=== PATIENT | female | born 1970 | race Caucasian/White ===

== ENCOUNTER 2022-10-16 20:50 | Emergency (ER) | payer OTHER, SELFPAY ==
--- NOTE | 2022-10-16 20:49 | ECG_ITS ---
APPROVED REPORT Exam: Resting ECG HR:84 bpm ECG Measurements Heart Rate 84 AXES SC 164 P 66 QRSd 93 QRS 30 QT 349 T 44 QTc 390 Conclusion SINUS RHYTHM LOW QRS VOLTAGE IN PRECORDIAL LEADS [QRS DEFLECTION < 1.0 mV IN CHEST LEADS] BORDERLINE ECG UNCONFIRMED REPORT Electronically signed by : Jhonny Anne MD 10/17/2022 21:28:04
[2022-10-16 20:50] VITALS: BP 158/87; PULSE 85; RESP 22; TEMP 36.6; O2SAT 99; BMI 45.1
[2022-10-16 21:01] VITALS: BP 130/79; PULSE 81; RESP 16; O2SAT 99
--- NOTE | 2022-10-16 21:04 | XR_ITS ---
PROCEDURE INFORMATION: Exam: XR Chest Exam date and time: 10/16/2022 9:33 PM Age: 52 years old Clinical indication: Shortness of breath; Sternal or substernal pain; Additional info: Chest pain, SOA TECHNIQUE: Imaging protocol: Radiologic exam of the chest. Views: 2 views. COMPARISON: No relevant prior studies available. FINDINGS: Lungs: Mild atelectasis in the lung bases. No consolidation. Pleural spaces: Unremarkable. No pleural effusion. No pneumothorax. Heart/Mediastinum: Unremarkable. No cardiomegaly. Bones/joints: Unremarkable. IMPRESSION: No acute findings.
--- NOTE | 2022-10-16 21:04 | CT_ITS ---
PROCEDURE INFORMATION: Exam: CTA Chest With Contrast Exam date and time: 10/16/2022 9:51 PM Age: 52 years old Clinical indication: Shortness of breath; Sternal or substernal pain; Additional info: Chest pain, SOA, recent dvt rle TECHNIQUE: Imaging protocol: Computed tomographic angiography of the chest with contrast. 3D rendering (Not supervised by radiologist): MIP and/or 3D reconstructed images were created by the technologist. Radiation optimization: All CT scans at this facility use at least one of these dose optimization techniques: automated exposure control; mA and/or kV adjustment per patient size (includes targeted exams where dose is matched to clinical indication); or iterative reconstruction. Contrast material: ISOVUE; Contrast volume: 70 ml; Contrast route: INTRAVENOUS (IV); Other protocol: This patient has received 0 known CTs and 0 known cardiac nuclear medicine studies in the 12 months prior to the current study. COMPARISON: CR XR CHEST 2V 10/16/2022 9:33 PM FINDINGS: Pulmonary arteries: Normal. No pulmonary emboli. Aorta: Unremarkable. No aortic aneurysm. No aortic dissection. Lungs: Unremarkable. No consolidation. No masses. Pleural spaces: Unremarkable. No pneumothorax. No pleural effusion. Heart: Unremarkable. No cardiomegaly. No pericardial effusion. Lymph nodes: Unremarkable. No enlarged lymph nodes. Bones/joints: Unremarkable. No acute fracture. Soft tissues: Unremarkable. IMPRESSION: No acute findings.
[2022-10-16 21:16] LABS: Basophils # 0.1 K/mm3 (0-0.2); Basophils % 1.5 % (0.1-2.0); Eosinophils # 0.3 K/mm3 (0.0-0.4); Eosinophils % 2.8 % (0.1-12.0); Hematocrit 46.4 % (37.0-47.0); Hemoglobin 14.8 g/dL (12.2-16.2); Lymphocytes # 2.8 K/mm3 (0.7-4.5); Lymphocytes % 29.6 % (10-50); Mean Corpuscular HGB Conc 31.9 g/dL (31.8-35.4); Mean Corpuscular Hemoglobin 27.1 pg (27.0-31.2); Mean Corpuscular Volume 84.8 fl (81-99); Mean Platelet Volume 7.8 fl (7.4-10.4); Monocytes # 0.5 K/mm3 (0.1-1.0); Monocytes % 4.9 % (1.7-9.3); Neutrophils # 5.7 K/mm3 (1.8-7.8); Neutrophils % 61.2 % (37.0-80.0); Platelet Count 273 K/mm3 (142-424); Red Blood Count 5.47 M/mm3 (4.20-5.40); Red Cell Distribution Width 13.7 % (11.5-17.5); White Blood Count 9.4 K/mm3 (4.8-10.8)
[2022-10-16 21:25] LABS: Alanine Aminotransferase 21 U/L (12-78); Albumin Level 4.5 g/dl (3.5-5.0); Alkaline Phosphatase 96 U/L (38-126); Anion Gap 8.2 mEq/L (5-15); Aspartate Amino Transferase 28 U/L (14-36); Bilirubin,Direct 0.2 mg/dl (0.0-0.4); Bilirubin,Indirect 0.1 mg/dL (0.0-0.9); Bilirubin,Total 0.3 mg/dl (0.2-1.3); Bilirubin,Unconjugated 0.1 mg/dL (0.0-1.1); Blood Urea Nitrogen 22 mg/dl (7-17); Calcium 9.2 mg/dl (8.4-10.2); Carbon Dioxide 30 mmol/L (22.0-30.0); Chloride 104 mmol/L (98-107); Creatinine Clearance Estimated 67 mL/min (50-200); Estimated Glomerular Filt Rate 65 ml/min (>60); GFR (African American) 79 ML/MIN (>60); Glucose 99 mg/dl (74-100); Potassium 4.2 mmoL/L (3.5-5.1); Sodium 138 mmol/L (136-145); Total Protein,Serum 7.6 g/dl (6.3-8.2)
[2022-10-16 21:29] LABS: C-Reactive Protein 10.7 mg/L (0-4)
--- NOTE | 2022-10-16 21:29 | HMH.EDCP ---
Discharge Plan Disposition Chief Complaint: Chest Pain Prescriptions Prescriptions: No Action nifedipine 30 mg Tablet Extended Release 24hr 30 mg PO DAILY estradiol 1 mg Tablet 1 mg PO DAILY Rx Instructions: off 1 week; repeat cycle pantoprazole 40 mg Tablet,Delayed Release (Dr/Ec) 40 mg PO DAILY aspirin 81 mg Tablet 81 mg PO DAILY furosemide 20 mg Tablet 20 mg PO DAILY ergocalciferol (vitamin D2) [Vitamin D2] 1,250 mcg (50,000 unit) Capsule 1,250 mcg PO WEEKLY albuterol sulfate 90 mcg/actuation Hfa Aerosol Inhaler 1 inh INHALATION QID PRN (Reason: copd) losartan 100 mg Tablet 100 mg PO DAILY sertraline 50 mg Tablet 50 mg PO DAILY imipramine HCl 25 mg Tablet 25 mg PO HS Clinical Impressions Clinical Impression: Chest pain Instructions Patient Instructions: DI for Chest Pain Discharge ED Provider: Almita (ED),Bladimir Quevedo Chest Pain HPI General Chief Complaint: Chest Pain Stated Complaint: Chest Pain Time Seen by Provider: 10/16/22 21:10 Mode of Arrival: Family Vehicle Source of Information: Patient, Spouse and Medical Record Limitations: No Limitations Description of Symptoms (Recalled from ER Triage Doc. by RN): Pt c/o anterior chest pressure that began today at lunch time. States she has had issues with chest pain for a long time, but today the pressure has not let up. States it began during exertion and has continued t/o the day. She already took ASA 81 mg [employer] but no other medications. She does report a recent DVT in her RLE without any blood thinners. History of Present Illness HPI narrative: over the last few days has had progressive ant chest pain more tonight - had card cath about 2 yrs ago w/o stent - MD complaint: chest pain indicative of cardiac Onset (ago): hour(s) Duration: intermittent Activity at onset: during rest Pain location: left chest Severity: moderate Risk Factors for CAD: Family Hx of CAD Treatments prior to or on arrival for Cardiac Chest Pain: none SHERI Score for Non-Stemi Age of Patient: 50-59 years old Heart Rate: 70-89 bpm Systolic Blood Pressure: 140-159 mmHg Serum Creatinine: 0.80-1.19 mg/dl CHF [place] Class: I-No CHF Other Risk Factors: None Non-Stemi Risk Score: 81 Risk Stratification: 1-108 = Low Risk Related Data Prior Cardiac Testing/Procedures: Cardiac Angiogram On Oral Contraceptives: No Home Medications Medication Instructions Recorded Confirmed albuterol sulfate 90 mcg/actuation 1 inh inhalation QID PRN copd 10/16/22 10/16/22 aerosol inhaler aspirin 81 mg tablet 81 mg PO DAILY heart health 10/16/22 10/16/22 ergocalciferol (vitamin D2) 1,250 1,250 mcg PO WEEKLY Supplement 10/16/22 10/16/22 mcg (50,000 unit) capsule (Vitamin D2) estradiol 1 mg tablet 1 mg PO DAILY Supplement 10/16/22 10/16/22 furosemide 20 mg tablet 20 mg PO DAILY swelling 10/16/22 10/16/22 imipramine HCl 25 mg tablet 25 mg PO HS Depression 10/16/22 10/16/22 losartan 100 mg tablet 100 mg PO DAILY htn 10/16/22 10/16/22 nifedipine 30 mg tablet,extended 30 mg PO DAILY htn 10/16/22 10/16/22 release 24 hr pantoprazole 40 mg tablet,delayed 40 mg PO DAILY GERD 10/16/22 10/16/22 release sertraline 50 mg tablet 50 mg PO DAILY Depression 10/16/22 10/16/22 Allergies Allergy/AdvReac Type Severity Reaction Status Date / Time No Known Allergies Allergy Verified 10/16/22 21:00 [facility] Disclaimer: The information contained in this section may have been updated after the patient was seen, as this information can be updated by other users. Social History Smoking Status: Former smoker alcohol intake: never current occupational status: employed Travel in the last 8 weeks: None ROS Obtained: Yes All systems reviewed & no additional complaints except as documented Physical Exam General General appearance: alert and obese Head Head exam: normocephalic Eye Eye exam: Present PERRL and EOMI ENT EN
[2022-10-16 21:31] VITALS: BP 124/68; PULSE 76; RESP 14; O2SAT 100
[2022-10-16 21:35] LABS: NT Pro Brain Natriuretic Pep. 37.1 pg/mL (0-125)
[2022-10-16 21:40] LABS: Troponin I < 0.01 ng/ml (0.00-0.034)
[2022-10-16 21:43] LABS: Procalcitonin 0.041 ng/mL (0.0-2.0)
--- NOTE | 2022-10-16 21:47 | PC.NURSE ---
pt gone to CT @ this time.
--- NOTE | 2022-10-16 21:48 | PC.NURSE ---
called [facility] to get Medical records @ this times
[2022-10-16 21:51] LABS: Erythrocyte Sedimentation Rate 13 mm/hr (0-30)
[2022-10-16 22:00] VITALS: BP 125/70
[2022-10-16 22:30] VITALS: BP 116/67; PULSE 76; RESP 17; O2SAT 99
[2022-10-16 23:00] VITALS: BP 140/78; PULSE 75; RESP 15; O2SAT 99
[2022-10-17 00:18] VITALS: BP 146/80; PULSE 75; RESP 16; O2SAT 100
[2022-10-17 00:31] VITALS: BP 145/80; PULSE 75; RESP 16; O2SAT 98
[2022-10-17 01:01] VITALS: BP 148/78; PULSE 74; RESP 18; O2SAT 98
[2022-10-17 01:23] LABS: Troponin I < 0.01 ng/ml (0.00-0.034)
[2022-10-17 02:07] VITALS: BP 148/78; PULSE 72; RESP 18; TEMP 36.6; O2SAT 99
== END 2022-10-17 02:12 | disposition home or self-care (01) ==
PROVIDERS: Emergency Provider Emergency Medicine
DX: R07.89 Other chest pain (principal); Z87.891 Personal history of nicotine dependence
CPT/HCPCS: 71046; 71275; 80048; 80076; 83735; 83880; 84145; 84484; 85025; 85651; 86140; 93005; 96360; 99285; Q9967

== ENCOUNTER → 2022-11-13 12:14 | Outpatient (CLI) | payer OTHER, SELFPAY | LOC: RAD 12:15 | PROVIDERS: PCP Nurse Practitioner Family; Visit Provider Physician Assistant | DX: R07.9 Chest pain, unspecified (principal); R94.31 Abnormal electrocardiogram [ECG] [EKG]; Z82.49 Family history of ischemic heart disease and other diseases of the circulatory system | CPT/HCPCS: 78452; 93017; 93306; A9502; J2785 ==

== ENCOUNTER 2022-12-26 14:03 | Emergency (ER) | payer OTHER, SELFPAY ==
[2022-12-26 14:12] VITALS: BP 146/95; PULSE 86; RESP 16; TEMP 36.6; O2SAT 99; BMI 46.5
--- NOTE | 2022-12-26 14:22 | XR_ITS ---
FINAL REPORT CLINICAL HISTORY: fall rightankle pain at work FINDINGS: RIGHT ANKLE 2 views of the right ankle were obtained. There is no acute fracture or dislocation. There are mild degenerative changes. There are calcaneal spurs. There is no soft tissue abnormality. IMPRESSION: No acute bony abnormality. Mild degenerative change. Reviewed, Interpreted and Dictated by Alban Nuno III, MD Transcribed by Evie Mills Authenticated and . [facility]
--- NOTE | 2022-12-26 14:22 | XR_ITS ---
FINAL REPORT CLINICAL HISTORY: fall right lower leg pain at work FINDINGS: RIGHT TIBIA FIBULA 2 views were obtained. There is no acute fracture or dislocation. There are mild degenerative changes of the knee and ankle. There is no soft tissue abnormality. IMPRESSION: No acute bony abnormality. Reviewed, Interpreted and Dictated by Alban Nuno III, MD Transcribed by Evie Mills Authenticated and '[facility]
--- NOTE | 2022-12-26 14:22 | XR_ITS ---
FINAL REPORT CLINICAL HISTORY: fall r knee pain at work FINDINGS: Three views of the right knee reveal no evidence of fracture or dislocation. The bony alignment is normal. There are mild degenerative changes with osteophytes. There is no evidence of joint effusion. No localized soft tissue abnormality is identified. IMPRESSION: No acute abnormality identified. Mild degenerative change. Reviewed, Interpreted and Dictated by Alban Nuno III, MD Transcribed by Evie Mills Authenticated and [facility]
[2022-12-26 14:31] VITALS: BP 163/105; PULSE 93; O2SAT 100
--- NOTE | 2022-12-26 14:58 | HMH.EDGENADL ---
Discharge Plan Disposition Patient Disposition: Home, Self-Care Condition: Fair Chief Complaint: Fall Prescriptions Prescriptions: No Action metoprolol succinate 25 mg tablet extended release 24 hr 25 mg PO QDAY Qty: 90 3RF nifedipine 30 mg Tablet Extended Release 24hr 30 mg PO DAILY estradiol 1 mg Tablet 1 mg PO DAILY Rx Instructions: off 1 week; repeat cycle pantoprazole 40 mg Tablet,Delayed Release (Dr/Ec) 40 mg PO DAILY aspirin 81 mg Tablet 81 mg PO DAILY furosemide 20 mg Tablet 20 mg PO DAILY ergocalciferol (vitamin D2) [Vitamin D2] 1,250 mcg (50,000 unit) Capsule 1,250 mcg PO WEEKLY albuterol sulfate 90 mcg/actuation Hfa Aerosol Inhaler 1 inh INHALATION QID PRN (Reason: copd) losartan 100 mg Tablet 100 mg PO DAILY sertraline 50 mg Tablet 50 mg PO DAILY imipramine HCl 25 mg Tablet 25 mg PO HS Referrals Follow up/Referrals: Dinorah Fisher APRN [Primary Care Provider] - See instructions Activity Restrictions/Add. Instructions Additional Instructions/Restrictions: Follow-up with your family doctor regarding this visit to the emergency department. If you have any other concerning signs or symptoms, return to the ER or your orthopedist for further evaluation. Clinical Impressions Clinical Impression: Acute pain of right knee Discharge ED Provider: Gold Schrader General Adult HPI General Chief complaint: Fall Stated complaint: AO@Work 12/26 1300 RT knee pain Time Seen by Provider: 12/26/22 14:05 Mode of Arrival: Wheelchair Source of Information: Patient Limitations: No Limitations Description of Symptoms (Recalled from ER Triage Doc. by RN): pt comes in via wheelchair for right knee and ankle pain. pt states that she fell today while at work. pt works at [employer]. History of Present Illness HPI narrative: Is a 52-year-old female with history of PAD, fibromyalgia presenting with right knee pain. Patient states that she was diagnosed with a torn meniscus and is supposed to get a total knee replacement. Today she fell on her right knee from standing. Has been able to bear weight, but with significant pain. Currently 10 out of 10 pain, does not radiate, no neurologic deficits. Related Data Home Medications Medication Instructions Recorded Confirmed albuterol sulfate 90 mcg/actuation 1 inh inhalation QID PRN copd 10/16/22 11/15/22 aerosol inhaler aspirin 81 mg tablet 81 mg PO DAILY heart health 10/16/22 11/15/22 ergocalciferol (vitamin D2) 1,250 1,250 mcg PO WEEKLY Supplement 10/16/22 11/15/22 mcg (50,000 unit) capsule (Vitamin D2) estradiol 1 mg tablet 1 mg PO DAILY Supplement 10/16/22 11/15/22 furosemide 20 mg tablet 20 mg PO DAILY swelling 10/16/22 11/15/22 imipramine HCl 25 mg tablet 25 mg PO HS Depression 10/16/22 11/15/22 losartan 100 mg tablet 100 mg PO DAILY htn 10/16/22 11/15/22 nifedipine 30 mg tablet,extended 30 mg PO DAILY htn 10/16/22 11/15/22 release 24 hr pantoprazole 40 mg tablet,delayed 40 mg PO DAILY GERD 10/16/22 11/15/22 release sertraline 50 mg tablet 50 mg PO DAILY Depression 10/16/22 11/15/22 Previous Rx's Medication Instructions Recorded metoprolol succinate 25 mg 25 mg PO QDAY #90 tabs 10/18/22 tablet,extended release 24 hr Allergies Allergy/AdvReac Type Severity Reaction Status Date / Time No Known Allergies Allergy Verified 11/15/22 13:53 [facility] Disclaimer: The information contained in this section may have been updated after the patient was seen, as this information can be updated by other users. Medical History Abnormal electrocardiogram [ECG] [EKG] Dyspnea Edema of both lower extremities Family history of ischemic heart disease before age 50 Father [place] 50 Mother -CABG Brother -CABG Social History Smoking Status: Never
[2022-12-26 15:00] VITALS: BP 156/108
--- NOTE | 2022-12-26 15:18 | PC.NURSE ---
pt up to restroom
[2022-12-26 15:30] VITALS: BP 131/82; PULSE 78; RESP 20; O2SAT 100
[2022-12-26 15:49] VITALS: BP 131/82; PULSE 80; RESP 18; TEMP 36.7; O2SAT 99
== END 2022-12-26 15:50 | disposition home or self-care (01) ==
PROVIDERS: Emergency Provider Emergency Medicine; PCP Nurse Practitioner Family
DX: M25.561 Pain in right knee (principal); M25.571 Pain in right ankle and joints of right foot; W19.XXXA Unspecified fall, initial encounter; Y99.0 Civilian activity done for income or pay
CPT/HCPCS: 73562; 73590; 73600; 96372; 99284

== ENCOUNTER 2023-10-14 10:36 | Outpatient (CLI) | payer OTHER, SELFPAY ==
--- NOTE | 2023-10-14 11:00 | CT_ITS ---
FINAL REPORT TECHNIQUE: Postcontrast axial images of the chest were performed in a CTA protocol. This study was performed with techniques to keep radiation doses as low as reasonably achievable, (ALARA). Individualized dose reduction technique using automated exposure control or adjustment of mA and/or kV according to the patient's size were employed. CLINICAL HISTORY: DYSPNEA ON EXERTION,R/O DVT COMPARISON: 10/17/2022 FINDINGS: The heart is normal in size. No adenopathy is identified. No pleural or pericardial effusion is identified. The thoracic aorta is normal in caliber with no focal aneurysm or dissection identified. There is no filling defect to suggest pulmonary embolism. No lung infiltrate or mass is identified. There is mild bibasilar atelectasis. The images of the upper abdomen demonstrate postoperative changes of cholecystectomy. IMPRESSION: No evidence for PE on this exam. Reviewed, Interpreted and Dictated by Alban Nuno III, MD Transcribed by Aria Fontaine Authenticated and [facility]
[2023-10-14] MEDS: IOPAMIDOL-370 (76%);100ML BOTTLE 70 ML IV (12:10)
[2023-10-14] MEDS: 0.9 % SODIUM CHLORIDE 50 ML VIAL 40 ML IV (12:10)
[2023-10-14] MEDS: SODIUM CHLORIDE 0.9% 10ML SYR (RAD ONLY) 10 ML IV (12:11)
== END 2023-10-14 23:59 ==
LOC: RAD 10:37
PROVIDERS: PCP Nurse Practitioner Family; Visit Provider Internal Medicine Cardiovascular Disease
DX: R06.09 Other forms of dyspnea (principal); R07.89 Other chest pain
CPT/HCPCS: 71275; Q9967

== ENCOUNTER 2023-11-13 14:47 | Emergency (ER) | payer OTHER, SELFPAY ==
[2023-11-13] VITALS (8 sets, daily range): BP systolic 123–151; BP diastolic 72–94; PULSE 77–88; RESP 16; TEMP 36.4; O2SAT 98–100; BMI 35.8
--- NOTE | 2023-11-13 14:47 | ECG_ITS ---
APPROVED REPORT Exam: Resting ECG HR:80 bpm ECG Measurements Heart Rate 80 AXES IL 171 P 74 QRSd 98 QRS 57 QT 371 T 61 QTc 407 Conclusion SINUS RHYTHM NORMAL ECG Electronically signed by : RAIMUNDO LEIVA, 11/14/2023 00:12:44
--- NOTE | 2023-11-13 15:03 | [facility].EDCP ---
Discharge Plan Disposition Patient Disposition: Home, Self-Care Condition: Good Prescriptions Prescriptions: No Action metoprolol succinate 25 mg tablet extended release 24 hr 25 mg PO QDAY Qty: 90 3RF nifedipine 30 mg Tablet Extended Release 24hr 30 mg PO DAILY estradiol 1 mg Tablet 1 mg PO DAILY Rx Instructions: off 1 week; repeat cycle pantoprazole 40 mg Tablet,Delayed Release (Dr/Ec) 40 mg PO DAILY aspirin 81 mg Tablet 81 mg PO DAILY furosemide 20 mg Tablet 20 mg PO DAILY ergocalciferol (vitamin D2) [Vitamin D2] 1,250 mcg (50,000 unit) Capsule 1,250 mcg PO WEEKLY albuterol sulfate 90 mcg/actuation Hfa Aerosol Inhaler 1 inh INHALATION QID PRN (Reason: copd) losartan 100 mg Tablet 100 mg PO DAILY sertraline 50 mg Tablet 50 mg PO DAILY imipramine HCl 25 mg Tablet 25 mg PO HS Referrals Follow up/Referrals: Provider,Referral, [Primary Care Provider] - See instructions Activity Restrictions/Add. Instructions Additional Instructions/Restrictions: Up with your PCP and mold filler as soon as possible and keep your scheduled echocardiogram appointment on Saturday. Return to the ER for any worsening or change in your symptoms as needed. Clinical Impressions Clinical Impression: Chest pain Qualifiers: Chest pain type: other chest pain Qualified Code(s): R07.89 - Other chest pain Discharge ED Provider: Britta Meneses HPI <YASMINE Engle - Last Filed: 11/13/23 21:32> General Chief Complaint: Chest Pain Stated Complaint: CP Time Seen by Provider: 11/13/23 14:52 History of Present Illness HPI narrative: Patient presents with a 2-day history of intermittent bilateral chest pain . Patient states the pain is throughout both sides of her chest and does not radiate anywhere else. Patient states it is worse with exertion and normally gets better with rest. Patient has had 2 previous coronary caths but has not had any interventions in her heart but has had in her left lower extremity. Patient has never had an echocardiogram but has been following with a mold filler in [place] and reportedly has 1 scheduled for the following Saturday. Patient has nitroglycerin at home and she took that today without any relief. Related Data Home Medications Medication Instructions Recorded Confirmed albuterol sulfate 90 mcg/actuation 1 inh inhalation QID PRN copd 10/16/22 11/15/22 aerosol inhaler aspirin 81 mg tablet 81 mg PO DAILY heart health 10/16/22 11/15/22 ergocalciferol (vitamin D2) 1,250 1,250 mcg PO WEEKLY Supplement 10/16/22 11/15/22 mcg (50,000 unit) capsule (Vitamin D2) estradiol 1 mg tablet 1 mg PO DAILY Supplement 10/16/22 11/15/22 furosemide 20 mg tablet 20 mg PO DAILY swelling 10/16/22 11/15/22 imipramine HCl 25 mg tablet 25 mg PO HS Depression 10/16/22 11/15/22 losartan 100 mg tablet 100 mg PO DAILY htn 10/16/22 11/15/22 nifedipine 30 mg tablet,extended 30 mg PO DAILY htn 10/16/22 11/15/22 release 24 hr pantoprazole 40 mg tablet,delayed 40 mg PO DAILY GERD 10/16/22 11/15/22 release sertraline 50 mg tablet 50 mg PO DAILY Depression 10/16/22 11/15/22 Previous Rx's Medication Instructions Recorded metoprolol succinate 25 mg 25 mg PO QDAY #90 tabs 10/18/22 tablet,extended release 24 hr Allergies Allergy/AdvReac Type Severity Reaction Status Date / Time No Known Allergies Allergy Verified 11/15/22 13:53 [facility] <YASMINE Engle - Last Filed: 11/13/23 21:32> [facility] Disclaimer: The information contained in this section may have been updated after the patient was seen, as this information can be updated by other users. Medical History Abnormal electrocardiogram [ECG] [EKG] Dyspnea Edema of both lower extremities Family history of ischemic heart disease before age 50 Father HI 50 Mother -CABG Brother -CABG Social History Smoking Status: Never smoker alcohol intake: never current occupational status: employed Travel in the last 8 weeks: None <YASMINE Engle - Last Filed: 11/13/23 21:32> ROS Obtained: Yes Systems reviewed as appropriate & no additional complaints except as documented Physical Exam <YASMINE Engle - Last Filed: 11/13/23 21:32> General General appearance: alert and in no apparent distress Head Head exam: atraumatic and normal inspection Eye Eye exam: Present normal appearance, PERRL and EOMI ENT ENT exam: Present normal exam, normal oropharynx and mucous membranes moist Neck Neck exam: Present normal inspection and full ROM; Absent lymphadenopathy Chest Chest inspection: Present normal inspection and symmetric chest wall rise Respiratory Respiratory exam: Present normal lung sounds bilaterally; Absent accessory muscle use Cardiovascular Cardiovascular exam: Present regular rate, normal rhythm, normal heart sounds, +S1 and +S2 Abdominal Exam Abdominal exam: Present soft (Obese) and normal bowel sounds; Absent tenderness, guarding or rebound Extremities Exam Extremities exam: Present normal inspection and full ROM Back Exam Back exam: Present normal inspection and full ROM Neurological Exam Neurological exam: Present alert, oriented X3 and CN II-XII intact Psychiatric Psychiatric exam: Present normal affect and normal mood Skin Skin exam: Present warm, dry and normal color Lymphatic Lymphatic Findings: no adenopathy HEART Score <YASMINE Engle - Last Filed: 11/13/23 21:32> HEART Score HEART Score assessment performed?: Yes History (anamnesis): Slightly suspicious ECG: Normal Age: 45-65 years Risk factors: Atherosclerosis history Troponin: </= normal limit HEART Score: 3 <Britta Meneses DO - Last Filed: 11/13/23 23:47> HEART Score HEART Score: 3 Critical Care <YASMINE Engle - Last Filed: 11/13/23 21:32> Critical Care Time Critical Care Time: No Medical Decision Making <YASMINE Engle - Last Filed: 11/13/23 21:32> Medical Records Medical records reviewed: Yes I reviewed the patient's medical records. Jeremias Inquiry Pt receiving controlled substance: No Vital Signs Vital Signs: 11/13/23 14:52 11/13/23 15:00 11/13/23 15:23 Temperature 97.5 F L Temperature Source Oral Pulse Rate 88 77 Pulse Rate [Left] 87 Respiratory Rate 16 Blood Pressure 145/94 H 131/91 H Blood Pressure [Right Arm] 151/94 H Blood Pressure Mean [Right Arm] 113 02 Sat by Pulse Oximetry 99 99 100 Oxygen Delivery Method Room Air 11/13/23 15:30 11/13/23 16:00 11/13/23 16:30 Temperature Temperature Source Pulse Rate 84 79 82 Pulse Rate [Left] Respiratory Rate Blood Pressure 123/72 127/85 129/88 Blood Pressure [Right Arm] Blood Pressure Mean [Right Arm] 02 Sat by Pulse Oximetry 100 98 100 Oxygen Delivery Method Room Air Room Air Room Air 11/13/23 16:59 11/13/23 19:11 Temperature 97.5 F L Temperature Source Oral Pulse Rate 85 81 Pulse Rate [Left] Respiratory Rate 16 Blood Pressure 130/82 130/82 Blood Pressure [Right Arm] Blood Pressure Mean [Right Arm] 02 Sat by Pulse Oximetry 99 Oxygen Delivery Method Room Air Lab Data Lab results reviewed: Yes I reviewed the patient's lab results. Labs: Lab Results 11/13/23 14:50: WBC 7.9, RBC 5.16, Hgb 14.1, Hct 45.1, MCV 87.3, MCH 27.2, MCHC 31.2 L, RDW 14.5, Plt Count 273, MPV 7.8, Neut % (Auto) 61.8, Lymph % (Auto) 31.2, [place] % (Auto) 4.5, Eos % (Auto) 1.7, Baso % (Auto) 0.8, Neut # (Auto) 4.9, Lymph # (Auto) 2.5, [place] # (Auto) 0.4, Eos # (Auto) 0.1, Baso # (Auto) 0.1, PT 10.2, INR 0.94, D-Dimer 0.37, Sodium 138, Potassium 3.6, Chloride 103, Carbon Dioxide 29, Anion Gap 9.6, BUN 15, Creatinine 0.70, Estimated Creat Clear 202, Estimated GFR 87, Est GFR ( Amer) 105, Glucose 119 H, Calcium 9.1, Magnesium 2.0, Total Bilirubin 0.2, AST 29, ALT 25, Alkaline Phosphatase 108, Troponin I < 0.01, NT-Pro-B Natriuret Pep < 20.0, Total Protein 7.3, Albumin 4.2, Globulin 3.1, Albumin/Globulin Ratio 1.4 11/13/23 15:10: SARS-CoV-2 (PCR) Not detected, Influenza A Untype (PCR) Not detected, Influenza Type B (PCR) Not detected 11/13/23 15:18: Lactate 2.4 H 11/13/23 17:30: Troponin I < 0.01 11/13/23 14:50 11/13/23 14:50 Response Orders (Tests/Meds): ED MEDICATIONS Discontinued Medications Generic Name Dose Route Start Last Admin Trade Name Nas PRN Reason Stop Dose Admin Acetaminophen 1,000 mg 11/13/23 15:05 11/13/23 15:19 Acetaminophen 1,000mg/100ml Vial IV 11/13/23 15:06 1,000 mg ONCE ONE Administration Ketorolac Tromethamine 15 mg 11/13/23 15:05 11/13/23 15:19 Ketorolac 30mg/Ml Vial IV 11/13/23 15:06 15 mg ONCE ONE Administration ORDERS Category Date Time Status Chest XR -- portable [XR chest portable] Stat Exams 11/13/23 15:05 Completed BNP [Brain Natriuretic Peptide] Stat Lab 11/13/23 14:50 Completed CBC w/Auto Diff [Complete Blood Count Auto Diff] Stat Lab 11/13/23 14:50 Completed CMP [Comprehensive Metabolic Panel] Stat Lab 11/13/23 14:50 Completed D-Dimer Stat Lab 11/13/23 14:50 Completed INR [Prothrombin Time INR] Stat Lab 11/13/23 14:50 Completed Lactic Acid Stat Lab 11/13/23 15:18 Completed Magnesium Stat Lab 11/13/23 14:50 Completed Rapid PCR Covid and Flu A/B Stat Lab 11/13/23 15:10 Completed Trop I [Troponin I] Stat Lab 11/13/23 14:50 Completed Troponin I Q3H Lab 11/13/23 17:30 Completed MDM Narrative Medical Decision Narrative: In summary patient is a in summary patient is a 53-year-old female who presents to the emergency department for evaluation of chest pain . Patient is hemodynamically stable upon arrival, and afebrile. Physical exam is remarkable for a morbidly obese (BMI 35.8) well-nourished well-developed 53-year-old female who presents for bilateral upper chest pain. Patient has had similar symptoms off and on over a year however the last documentation I am able to review was from a cardiology visit done in October 2022.. Exam is remarkable for nonreproducible chest pain but clear breath sounds normal heart sounds 3+ pitting edema in the bilateral lower extremities no palpable cords erythema or induration. Differential diagnosis includes respiratory tract infection versus ACS versus PE versus COPD versus CHF versus possible GI cause. Initial workup will be conducted with hematologic labs twelve-lead EKG plain film chest x-ray. Initial interventions include Toradol acetaminophen. Initial workup reviewed by me shows nonactionable hematologic labs including 2 negative troponins and a twelve-lead EKG shows normal sinus rhythm without evidence of ACS.. Upon repeat evaluation had complete resolution of her symptoms prior to discharge. Patient was able to ambulate without return.. Given this patient is appropriate for discharge at this time with close follow-up with her cardiology and PCP as scheduled. Patient has an echo scheduled for Saturday. Patient may need further evaluation with pulmonology and GI. Patient verbalized understanding and agreement. <Britta Meneses, DO - Last Filed: 11/13/23 23:47> Vital Signs Vital Signs: 11/13/23 14:52 11/13/23 15:00 11/13/23 15:23 Temperature 97.5 F L Temperature Source Oral Pulse Rate 88 77 Pulse Rate [Left] 87 Respiratory Rate 16 Blood Pressure 145/94 H 131/91 H Blood Pressure [Right Arm] 151/94 H Blood Pressure Mean [Right Arm] 113 02 Sat by Pulse Oximetry 99 99 100 Oxygen Delivery Method Room Air 11/13/23 15:30 11/13/23 16:00 11/13/23 16:30 Temperature Temperature Source Pulse Rate 84 79 82 Pulse Rate [Left] Respiratory Rate Blood Pressure 123/72 127/85 129/88 Blood Pressure [Right Arm] Blood Pressure Mean [Right Arm] 02 Sat by Pulse Oximetry 100 98 100 Oxygen Delivery Method Room Air Room Air Room Air 11/13/23 16:59 11/13/23 19:11 Temperature 97.5 F L Temperature Source Oral Pulse Rate 85 81 Pulse Rate [Left] Respiratory Rate 16 Blood Pressure 130/82 130/82 Blood Pressure [Right Arm] Blood Pressure Mean [Right Arm] 02 Sat by Pulse Oximetry 99 Oxygen Delivery Method Room Air Lab Data Labs: Lab Results 11/13/23 14:50: WBC 7.9, RBC 5.16, Hgb 14.1, Hct 45.1, MCV 87.3, MCH 27.2, MCHC 31.2 L, RDW 14.5, Plt Count 273, MPV 7.8, Neut % (Auto) 61.8, Lymph % (Auto) 31.2, [place] % (Auto) 4.5, Eos % (Auto) 1.7, Baso % (Auto) 0.8, Neut # (Auto) 4.9, Lymph # (Auto) 2.5, [place] # (Auto) 0.4, Eos # (Auto) 0.1, Baso # (Auto) 0.1, PT 10.2, INR 0.94, D-Dimer 0.37, Sodium 138, Potassium 3.6, Chloride 103, Carbon Dioxide 29, Anion Gap 9.6, BUN 15, Creatinine 0.70, Estimated Creat Clear 202, Estimated GFR 87, Est GFR ( Amer) 105, Glucose 119 H, Calcium 9.1, Magnesium 2.0, Total Bilirubin 0.2, AST 29, ALT 25, Alkaline Phosphatase 108, Troponin I < 0.01, NT-Pro-B Natriuret Pep < 20.0, Total Protein 7.3, Albumin 4.2, Globulin 3.1, Albumin/Globulin Ratio 1.4 11/13/23 15:10: SARS-CoV-2 (PCR) Not detected, Influenza A Untype (PCR) Not detected, Influenza Type B (PCR) Not detected 11/13/23 15:18: Lactate 2.4 H 11/13/23 17:30: Troponin I < 0.01 Response Orders (Tests/Meds): ED MEDICATIONS Discontinued Medications Generic Name Dose Route Start Last Admin Trade Name Nsa PRN Reason Stop Dose Admin Acetaminophen 1,000 mg 11/13/23 15:05 11/13/23 15:19 Acetaminophen 1,000mg/100ml Vial IV 11/13/23 15:06 1,000 mg ONCE ONE Administration Ketorolac Tromethamine 15 mg 11/13/23 15:05 11/13/23 15:19 Ketorolac 30mg/Ml Vial IV 11/13/23 15:06 15 mg ONCE ONE Administration ORDERS Category Date Time Status Chest XR -- portable [XR chest portable] Stat Exams 11/13/23 15:05 Completed BNP [Brain Natriuretic Peptide] Stat Lab 11/13/23 14:50 Completed CBC w/Auto Diff [Complete Blood Count Auto Diff] Stat Lab 11/13/23 14:50 Completed CMP [Comprehensive Metabolic Panel] Stat Lab 11/13/23 14:50 Completed D-Dimer Stat Lab 11/13/23 14:50 Completed INR [Prothrombin Time INR] Stat Lab 11/13/23 14:50 Completed Lactic Acid Stat Lab 11/13/23 15:18 Completed Magnesium Stat Lab 11/13/23 14:50 Completed Rapid PCR Covid and Flu A/B Stat Lab 11/13/23 15:10 Completed Trop I [Troponin I] Stat Lab 11/13/23 14:50 Completed Troponin I Q3H Lab 11/13/23 17:30 Completed ECG Data Tracing #1: Attestation: I reviewed this ECG and interpreted as documented below: ECG Narrative: Normal sinus rhythm with a ventricular rate of [address] elevations concerning for ischemia. Normal axis and intervals. ECG initial impression date: 11/13/23 ECG initial impression time: 14:53 MDM Narrative Medical Decision Narrative: In summary patient is a in summary patient is a 53-year-old female who presents to the emergency department for evaluation of chest pain . Patient is hemodynamically stable upon arrival, and afebrile. Physical exam is remarkable for a morbidly obese (BMI 35.8) well-nourished well-developed 53-year-old female who presents for bilateral upper chest pain. Patient has had similar symptoms off and on over a year however the last documentation I am able to review was from a cardiology visit done in October 2022.. Exam is remarkable for nonreproducible chest pain but clear breath sounds normal heart sounds 3+ pitting edema in the bilateral lower extremities no palpable cords erythema or induration. Differential diagnosis includes respiratory tract infection versus ACS versus PE versus COPD versus CHF versus possible GI cause. Initial workup will be conducted with hematologic labs twelve-lead EKG plain film chest x-ray. Initial interventions include Toradol acetaminophen. Initial workup reviewed by me shows nonactionable hematologic labs including 2 negative troponins and a twelve-lead EKG shows normal sinus rhythm without evidence of ACS.. Upon repeat evaluation had complete resolution of her symptoms prior to discharge. Patient was able to ambulate without return.. Given this patient is appropriate for discharge at this time with close follow-up with her cardiology and PCP as scheduled. Patient has an echo scheduled for Saturday. Patient may need further evaluation with pulmonology and GI. Patient verbalized understanding and agreement. I was consulted by the JANICE, and we discussed the complexity of the problems being addressed. I approved the treatment and management plan for this patient's care in the emergency department, thus performing a substantive portion of the medical decision making. Britta Meneses DO
--- NOTE | 2023-11-13 15:05 | XR_ITS ---
FINAL REPORT CLINICAL HISTORY: Chest pain COMPARISON: 08/15/2023 FINDINGS: A single portable view of the chest was obtained. Low lung volumes are present. Bibasilar atelectasis is noted. The heart size and pulmonary vascularity are within normal limits. The mediastinum is within normal limits. The bony thorax is intact. IMPRESSION: Low lung volumes and bibasilar atelectasis. Reviewed, Interpreted and Dictated by Alban Nuno III, MD Transcribed by Orin Bunch Authenticated and [facility]
[2023-11-13 15:14] LABS: Coronavirus 19, PCR Not Detected (NotDetected); Influenza A, PCR Not Detected (NotDetected); Influenza B, PCR Not Detected (NotDetected)
[2023-11-13] MEDS: KETOROLAC 30MG/ML VIAL 15 MG IV (15:19)
[2023-11-13] MEDS: ACETAMINOPHEN 1,000MG/100ML VIAL 1000 MG IV (15:19)
[2023-11-13 15:22] LABS: INR 0.94 (0.9-1.1); Prothrombin Time 10.2 seconds (10.1-12.5)
[2023-11-13 15:23] LABS: Alanine Aminotransferase 25 U/L (12-78); Albumin Level 4.2 g/dl (3.5-5.0); Albumin/Globulin Ratio 1.4 (1.1-1.8); Alkaline Phosphatase 108 U/L (38-126); Anion Gap 9.6 mEq/L (5-15); Aspartate Amino Transferase 29 U/L (14-36); Bilirubin,Total 0.2 mg/dl (0.2-1.3); Blood Urea Nitrogen 15 mg/dl (7-17); Calcium 9.1 mg/dl (8.4-10.2); Carbon Dioxide 29 mmol/L (22.0-30.0); Chloride 103 mmol/L (98-107); Creatinine Clearance Estimated 202 mL/min (50-200); Estimated Glomerular Filt Rate 87 ml/min (>60); GFR (African American) 105 ML/MIN (>60); Globulin 3.1 g/dL (1.3-3.2); Glucose 119 mg/dl (74-100); Potassium 3.6 mmoL/L (3.5-5.1); Sodium 138 mmol/L (136-145); Total Protein,Serum 7.3 g/dl (6.3-8.2)
[2023-11-13 15:34] LABS: Basophils # 0.1 K/mm3 (0-0.2); Basophils % 0.8 % (0.1-2.0); Eosinophils # 0.1 K/mm3 (0.0-0.4); Eosinophils % 1.7 % (0.1-12.0); Hematocrit 45.1 % (37.0-47.0); Hemoglobin 14.1 g/dL (12.2-16.2); Lymphocytes # 2.5 K/mm3 (0.7-4.5); Lymphocytes % 31.2 % (10-50); Mean Corpuscular HGB Conc 31.2 g/dL (31.8-35.4); Mean Corpuscular Hemoglobin 27.2 pg (27.0-31.2); Mean Corpuscular Volume 87.3 fl (81-99); Mean Platelet Volume 7.8 fl (7.4-10.4); Monocytes # 0.4 K/mm3 (0.1-1.0); Monocytes % 4.5 % (1.7-9.3); Neutrophils # 4.9 K/mm3 (1.8-7.8); Neutrophils % 61.8 % (37.0-80.0); Platelet Count 273 K/mm3 (142-424); Red Blood Count 5.16 M/mm3 (4.20-5.40); Red Cell Distribution Width 14.5 % (11.5-17.5); White Blood Count 7.9 K/mm3 (4.8-10.8)
[2023-11-13 15:35] LABS: NT Pro Brain Natriuretic Pep. < 20.0 pg/mL (0-125)
[2023-11-13 15:37] LABS: Troponin I < 0.01 ng/ml (0.00-0.034)
[2023-11-13 15:37] LABS: Lactic Acid 2.4 mmol/L (0.7-2.1)
[2023-11-13 15:42] LABS: D-Dimer 0.37 ug/mL (0.0-0.5)
[2023-11-13 18:10] LABS: Troponin I < 0.01 ng/ml (0.00-0.034)
[2023-11-13 19:19] LABS: Reflex Lactic Add Lactic Reflex
== END 2023-11-13 19:13 | disposition home or self-care (01) ==
PROVIDERS: Physician Assistant; Emergency Provider Emergency Medicine
DX: R07.89 Other chest pain (principal); E66.9 Obesity, unspecified; Z68.35 Body mass index [BMI] 35.0-35.9, adult
CPT/HCPCS: 71045; 80053; 83605; 83735; 83880; 84484; 85025; 85378; 85610; 87636; 93005; 96374; 96375; 99285; J0131

== ENCOUNTER 2024-03-25 13:47 | Day surgery (SDC) | payer OTHER, SELFPAY ==
[2024-03-25] VITALS (11 sets, daily range): BP systolic 96–157; BP diastolic 65–85; PULSE 66–77; RESP 15–17; TEMP 36.6; O2SAT 96–100; BMI 52.1
--- NOTE | 2024-03-25 | IR_ITS ---
APPROVED REPORT Patient Location: Outpatient [facility] Operator: NICHOLE Cuevas RT (R) PROCEDURES 1. Left heart catheterization 2. Selective coronary arteriography 3. Left ventriculography 4. Right heart catheterization INDICATION 1. Angina pectoris, 2. Abnormal EKG, 3. Congestive heart failure SCAI INDICATION Patient 53-year-old white female who presented to cardiology clinic with increasing pressure and tightness in the chest and increasing shortness of breath. Symptoms of progressive angina as well as congestive heart failure. Increasing edema. Secondary to this referred for left and right heart catheterization Informed consent was obtained prior to the procedure. COMPLICATIONS None Estimated Blood Loss: Less than 10 mls TECHNIQUE One percent lidocaine was used to anesthetize the right groin. The right femoral artery was accessed via the Seldinger technique. A 4-Iraqi and 7 pakistani sheath was placed in the right femoral artery and vein respectfully. A 7 Iraqi sheath was introduced and a [place]-Miracle catheter was floated using hemodynamic waveforms in the pulmonary artery, right ventricle , and right atrium. Saturations were obtained in the pulmonary artery and the right atrium. The JR-4 and JL-4 catheter was also used to perform left heart catheterization, left ventriculography and selective coronary angiogram. At the end of the procedure the patient was transferred to the post-op holding area in stable condition for arterial sheath removal. ANGIOGRAPHIC RESULTS The left main artery Angiographically normal The left anterior descending artery Angiographically normal The circumflex artery Moderate in size and angiographically normal The right coronary artery Large and dominant and angiographically normal The HALL ventriculogram reveals Ejection fraction 60 to 65% with no wall motion abnormalities and no noted mitral insufficiency The left ventricular end-diastolic pressure 14 Patient's right atrial pressure was 12 with a right ventricular pressure of 43/12 and a pulmonary artery pressure of 43/25. Pulmonary capillary wedge pressure 15. Right atrial saturation 66% with a pulmonary artery saturation is 66% IMPRESSION 1. Normal coronary arteries 2. Normal left ventricular systolic function 3. Mild elevation in left ventricular end-diastolic pressure and pulmonary capillary wedge pressure 4. Mild pulmonary hypertension 5. Normal pulmonary artery saturation 6. Successful placement of an Angio-Seal device in the right common femoral artery 7. Successful placement of a Mynx device in the right common femoral vein PLAN 1. Patient will continue with medical therapy. There was significant respiratory variation in the pressures in the heart. This is likely secondary to underlying sleep apnea. Pulmonary hypertension is mild. Likely a combination of diastolic dysfunction and obstructive sleep apnea. Coronaries are normal as is the left ventricular systolic function and pulmonary artery saturation. Follow-up in cardiology clinic in 1 to 2 weeks for further evaluation and treatment Electronically signed by : Shahriar Zambrano MD 03/25/2024 14:52:32
[2024-03-25] MEDS: LIDOCAINE 1% 10ML MDV 20 ML IJ (14:18)
[2024-03-25 14:20] LABS: Chloride 106 mmol/L (98-107); Potassium 4.3 mmoL/L (3.5-5.1); Sodium 138 mmol/L (136-145)
[2024-03-25 14:23] LABS: Anion Gap 8.3 mEq/L (5-15); Blood Urea Nitrogen 18 mg/dl (7-17); Carbon Dioxide 28 mmol/L (22.0-30.0); Creatinine Clearance Estimated 74 mL/min (50-200); Estimated Glomerular Filt Rate 74 ml/min (>60); GFR (African American) 90 ML/MIN (>60); Glucose 94 mg/dl (74-100)
[2024-03-25 14:33] LABS: Basophils # 0.1 K/mm3 (0-0.2); Basophils % 0.9 % (0.1-2.0); Eosinophils # 0.2 K/mm3 (0.0-0.4); Eosinophils % 2.5 % (0.1-12.0); Hematocrit 36.6 % (37.0-47.0); Hemoglobin 11.9 g/dL (12.2-16.2); Lymphocytes # 2.2 K/mm3 (0.7-4.5); Lymphocytes % 27.1 % (10-50); Mean Corpuscular HGB Conc 32.7 g/dL (31.8-35.4); Mean Corpuscular Hemoglobin 27.2 pg (27.0-31.2); Mean Corpuscular Volume 83.2 fl (81-99); Mean Platelet Volume 7.7 fl (7.4-10.4); Monocytes # 0.4 K/mm3 (0.1-1.0); Monocytes % 4.4 % (1.7-9.3); Neutrophils # 5.4 K/mm3 (1.8-7.8); Neutrophils % 65.1 % (37.0-80.0); Platelet Count 331 K/mm3 (142-424); Red Cell Distribution Width 14.9 % (11.5-17.5); White Blood Count 8.3 K/mm3 (4.8-10.8)
[2024-03-25] MEDS: MIDAZOLAM HCL 1MG/1ML 5ML VIAL 1 MG IV (14:48)
[2024-03-25] MEDS: FENTANYL 100MCG/2ML VIAL 50 MCG IV (14:48)
[2024-03-25] MEDS: HEPARIN 1,000 UNITS/500ML NS (CATH LAB) 3000 UNIT IV (14:49)
[2024-03-25] MEDS: IOPAMIDOL-370 (76%);100ML BOTTLE 40 ML IV (15:02)
[2024-03-25 15:04] LABS: CATHL Venous O2 SAT 68.6 % (75-80)
== END 2024-03-25 17:21 | disposition home or self-care (01) ==
PROVIDERS: PCP Family Medicine; Visit Provider Internal Medicine Cardiovascular Disease
DX: I20.89 Other forms of angina pectoris (principal); I11.0 Hypertensive heart disease with heart failure; I50.9 Heart failure, unspecified; R06.02 Shortness of breath; Z87.891 Personal history of nicotine dependence
CPT/HCPCS: 80048; 82810; 85025; 93453; 99152; C1725; C1760; C1769; C1894; J1644; J2250; J3010; Q9967

== ENCOUNTER 2024-12-10 12:05 | Emergency (ER) | payer OTHER, SELFPAY ==
--- NOTE | 2024-12-10 12:09 | ECG_ITS ---
APPROVED REPORT Exam: Resting ECG HR:67 bpm ECG Measurements Heart Rate 67 AXES HI 173 P 59 QRSd 95 QRS 43 QT 377 T 34 QTc 393 Conclusion Sinus rhythm Electronically signed by : KAILYN ERIC, 12/10/2024 13:48:49
--- NOTE | 2024-12-10 12:19 | XR_ITS ---
FINAL REPORT CLINICAL HISTORY: Nonspecific chest pain COMPARISON: 11/13/2023 FINDINGS: No acute pulmonary opacity is present. There is no evidence of effusion or pneumothorax. Mediastinum is unremarkable. Heart size is normal. IMPRESSION: No acute abnormality. Reviewed, Interpreted and Dictated by Reena Hernandez MD Transcribed by Heather Kat Authenticated and [facility]
--- NOTE | 2024-12-10 12:20 | [facility].EDCP ---
Discharge Plan Disposition Patient Disposition: Home, Self-Care Prescriptions Prescriptions: No Action metoprolol succinate 25 mg tablet extended release 24 hr 25 mg PO QDAY Qty: 90 3RF nifedipine 30 mg Tablet Extended Release 24hr 30 mg PO DAILY estradiol 1 mg Tablet 1 mg PO DAILY Rx Instructions: off 1 week; repeat cycle pantoprazole 40 mg Tablet,Delayed Release (Dr/Ec) 40 mg PO DAILY aspirin 81 mg Tablet 81 mg PO DAILY ergocalciferol (vitamin D2) [Vitamin D2] 1,250 mcg (50,000 unit) Capsule 1,250 mcg PO WEEKLY albuterol sulfate 90 mcg/actuation Hfa Aerosol Inhaler 1 inh INHALATION QID PRN (Reason: copd) sertraline 50 mg Tablet 50 mg PO DAILY oxybutynin chloride 10 mg tablet extended release 24hr 10 mg PO DAILY Patient Comments: TAKE ONE (1) TABLET BY MOUTH EVERY DAY isosorbide mononitrate 30 mg tablet extended release 24 hr 30 mg PO DAILY Patient Comments: TAKE ONE (1) TABLET BY MOUTH EVERY DAY clopidogrel 75 mg tablet 75 mg PO DAILY Patient Comments: TAKE ONE (1) TABLET BY MOUTH EVERY DAY torsemide 100 mg tablet 50 mg PO DAILY Patient Comments: TAKE ONE HALF (1/2) TABLET BY MOUTH EVERY DAY montelukast 10 mg tablet 10 mg PO HS Patient Comments: TAKE ONE (1) TABLET BY MOUTH NIGHTLY losartan-hydrochlorothiazide 50-12.5 mg tablet 1 tab PO DAILY Patient Comments: TAKE ONE (1) TABLET BY MOUTH EVERY DAY fluticasone propionate 50 mcg/actuation spray,suspension 1 spray INTRANASAL DAILY Patient Comments: SPRAY ONE (1) SPRAY EVERY DAY BY INTRANASAL ROUTE. Eliquis 5 mg tablet 5 mg PO BID Patient Comments: TAKE ONE (1) TABLET BY MOUTH TWICE DAILY Trelegy Ellipta 200-62.5-25 mcg blister with device 1 ea INHALATION DAILY Patient Comments: INHALE ONE (1) PUFF BY MOUTH EVERY DAY Referrals Follow up/Referrals: Héctor Roy APRN [Primary Care Provider] - See instructions Activity Restrictions/Add. Instructions Additional Instructions/Restrictions: Today you were evaluated in the emergency department for chest pain. Your cardiac enzyme was normal. Your D-dimer was negative. Please follow-up with cardiology and your PCP. Return to the ED for any worsening of your condition. Clinical Impressions Clinical Impression: Chest pain Qualifiers: Chest pain type: other chest pain Qualified Code(s): R07.89 - Other chest pain Stand Alone Forms Stand Alone Forms: Work/School Release Instructions Patient Instructions: DI for Atypical Chest Pain Print Language Print Language: B[place] Discharge ED Provider: Gold Schrader HPI <Genna Fountain APRN - Last Filed: 12/10/24 13:46> General Chief Complaint: Chest Pain Stated Complaint: chest Pain Time Seen by Provider: 12/10/24 12:12 History of Present Illness HPI narrative: Patient is a 54-year-old female PMHx DVT (Plavix and Eliquis), obesity, history of abnormal EKG who presents to the ED with intermittent, generalized chest pain since Saturday. 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 Related Data Home Medications ?Medication ?Instructions ?Recorded ?Confirmed albuterol sulfate 90 mcg/actuation 1 inh inhalation QID PRN copd 10/16/22 12/10/24 aerosol inhaler aspirin 81 mg tablet 81 mg PO DAILY heart health 10/16/22 12/10/24 ergocalciferol (vitamin D2) 1,250 1,250 mcg PO WEEKLY Supplement 10/16/22 12/10/24 mcg (50,000 unit) capsule (Vitamin D2) estradiol 1 mg tablet 1 mg PO DAILY Supplement 10/16/22 12/10/24 nifedipine 30 mg tablet,extended 30 mg PO DAILY htn 10/16/22 12/10/24 release 24 hr pantoprazole 40 mg tablet,delayed 40 mg PO DAILY GERD 10/16/22 12/10/24 release sertraline 50 mg tablet 50 mg PO DAILY Depression 10/16/22 12/10/24 apixaban 5 mg tablet (Eliquis) 5 mg PO BID 12/10/24 12/10/24 clopidogrel 75 mg tablet 75 mg PO DAILY 12/10/24 12/10/24 fluticasone fur. 200 mcg-umeclid 1 ea inhalation DAILY 12/10/24 12/10/24 62.5 mcg-vilant 25 mcg inhalat.powder (Trelegy Ellipta) fluticasone propionate 50 1 spray intranasal DAILY 12/10/24 12/10/24 mcg/actuation nasal spray,suspension isosorbide mononitrate 30 mg 30 mg PO DAILY 12/10/24 12/10/24 tablet,extended release 24 hr losartan 50 mg-hydrochlorothiazide 1 tab PO DAILY 12/10/24 12/10/24 12.5 mg tablet montelukast 10 mg tablet 10 mg PO HS 12/10/24 12/10/24 oxybutynin chloride 10 mg 10 mg PO DAILY 12/10/24 12/10/24 tablet,extended release 24 hr torsemide 100 mg tablet 50 mg PO DAILY 12/10/24 12/10/24 Previous Rx's ?Medication ?Instructions ?Recorded metoprolol succinate 25 mg 25 mg PO QDAY #90 tabs 10/18/22 tablet,extended release 24 hr Allergies Allergy/AdvReac Type Severity Reaction Status Date / Time No Known Allergies Allergy Verified 11/15/22 13:53 [facility] <Genna Fountain APRN - Last Filed: 12/10/24 13:46> [facility] Disclaimer: The information contained in this section may have been updated after the patient was seen, as this information can be updated by other users. Medical History (Updated 12/10/24 @ 13:25 by Genna Fountain APRN) Family history of ischemic heart disease before age 50 Edema of both lower extremities Dyspnea Abnormal electrocardiogram [ECG] [EKG] Surgical History (Updated 12/10/24 @ 12:54 by Laura Peraza RN) Hx of tubal ligation Hx of hysterectomy Hx of cholecystectomy Hx of cardiac cath Social History Smoking Status: Former smoker alcohol intake: never current occupational status: employed Travel in the last 8 weeks: None Have you lived/traveled outside [place] in past 30 days?: No Contact w/someone who lives/traveled outside [place] past 30 days?: No Exposure to someone with infectious disease in past 14 days?: No Do you have a fever (greater than 100.4 F or 38 C)?: No Have you tested positive for COVID-19: No Exposed to someone with COVID-19 in past 14 days?: No Do you have a sore throat?: No Do you have a cough?: No Do you have any weakness?: No Do you have any diarrhea?: No Are you experiencing any unusual bleeding?: No Do you have any muscle aches/pain?: No Do you have any abdominal pain?: No Are you experiencing loss of taste or smell?: No <Genna Fountain APRN - Last Filed: 12/10/24 13:46> ROS Obtained: Yes Systems reviewed as appropriate & no additional complaints except as documented Physical Exam <Genna Fountain APRN - Last Filed: 12/10/24 13:46> General General appearance: alert and in no apparent distress Head Head exam: atraumatic and normocephalic Eye Eye exam: Present normal appearance and PERRL ENT ENT exam: Present normal exam Neck Neck exam: Present normal inspection Chest Chest inspection: Present normal inspection and symmetric chest wall rise; Absent tenderness Respiratory Respiratory exam: Present normal lung sounds bilaterally Cardiovascular Cardiovascular exam: Present regular rate Abdominal Exam Abdominal exam: Present soft and normal bowel sounds; Absent tenderness Extremities Exam Extremities exam: Present normal inspection and full ROM Back Exam Back exam: Present normal inspection and full ROM Neurological Exam Neurological exam: Present alert and oriented X3 Psychiatric Psychiatric exam: Present normal affect and normal mood Skin Skin exam: Present warm and dry HEART Score <Genna Fountain APRN - Last Filed: 12/10/24 13:46> HEART Score HEART Score assessment performed?: Yes History (anamnesis): Moderately suspicious ECG: Non-specific disturbance Age: 45-65 years Risk factors: 1-2 risk factors Troponin: </= normal limit HEART Score: 4 <Gold Schrader MD - Last Filed: 12/10/24 15:13> HEART Score HEART Score: 4 Procedures <Gold Schrader MD - Last Filed: 12/10/24 15:13> Limited Ultrasound Indication:: Limited cardiac ultrasound Indication: Chest pain Identified cardiac views: [-Cardiac parasternal long axis] [-Cardiac parasternal short axis] [-Cardiac apical four-chamber] Findings: -Cardiac activity [present] -Gross wall motion [normal] -Pericardial effusion [absent] -Right heart strain [absent] Impression: -Normal cardiac ultrasound with no effusion, no regional wall motion abnormalities, no evidence of right heart strain and no evidence of valvular regurgitation. Grossly normal squeeze Images [were saved] to permanent archive The study [was] technically adequate CPT: 02515 This study was performed by me, and I personally interpreted all images/videos. Based on my clinical judgement, these images were [adequate] and [did not] necessitate further imaging Critical Care <Genna Fountain APRN - Last Filed: 12/10/24 13:46> Critical Care Time Critical Care Time: No Medical Decision Making <Genna Fountain APRN - Last Filed: 12/10/24 13:46> Jeremias Inquiry Pt receiving controlled substance: No Vital Signs Vital Signs: 12/10/24 12:25 12/10/24 12:30 12/10/24 13:01 Temperature 97.8 F Temperature Source Oral Pulse Rate 63 69 Pulse Rate [Right] 74 Respiratory Rate 20 20 19 Blood Pressure 118/68 103/66 L Blood Pressure [Right Arm] 123/49 L Blood Pressure Mean [Right Arm] 73 Blood Pressure Source Blood Pressure Source [Right Arm] Automatic Cuff 02 Sat by Pulse Oximetry 96 100 96 Oxygen Delivery Method Room Air Room Air 12/10/24 13:30 12/10/24 13:48 Temperature 97.8 F Temperature Source Oral Pulse Rate 71 74 Pulse Rate [Right] Respiratory Rate 21 17 Blood Pressure 111/68 111/64 Blood Pressure [Right Arm] Blood Pressure Mean [Right Arm] Blood Pressure Source Automatic Cuff Blood Pressure Source [Right Arm] 02 Sat by Pulse Oximetry 97 Oxygen Delivery Method Room Air Room Air Lab Data Labs: Lab Results 12/10/24 12:00: NT-Pro-B Natriuret Pep 46.5 12/10/24 12:10: WBC 8.9, RBC 5.32, Hgb 13.5, Hct 42.8, MCV 80.5 L, MCH 25.4 L, MCHC 31.5 L, RDW 15.8, Plt Count 311, MPV 10.1, Neut % (Auto) 64.1, Lymph % (Auto) 29.5, Randolph % (Auto) 5.3, Eos % (Auto) 0.0 L, Baso % (Auto) 0.9, Neut # (Auto) 5.7, Lymph # (Auto) 2.6, Randolph # (Auto) 0.5, Eos # (Auto) 0.0, Baso # (Auto) 0.1, D-Dimer 0.35, Sodium 138, Potassium 4.1, Chloride 101, Carbon Dioxide 28, Anion Gap 13.1, BUN 20 H, Creatinine 0.70, Estimated GFR 87, Est GFR ( Amer) 105, Glucose 93, Calcium 9.4, Total Bilirubin 0.6, AST 31, ALT 22, Alkaline Phosphatase 85, Troponin I < 0.01, Total Protein 7.6, Albumin 4.2, Globulin 3.4 H, Albumin/Globulin Ratio 1.2, HCV Ab RASHIDA w/Rflx PCR Qn Negative, HIV Ag/Ab Combo Qual Negative 12/10/24 12:10 12/10/24 12:10 Response Orders (Tests/Meds): ORDERS Category Date Time Status CXR --portable [XR chest portable] Stat Exams 12/10/24 12:19 Completed POCUS Point of Care (ER Only) Stat Exams 12/10/24 12:20 Taken BNP [NT Pro Brain Natriuretic Pep.] Stat Lab 12/10/24 12:00 Completed CBC w/Auto Diff [Complete Blood Count Auto Diff] Stat Lab 12/10/24 12:10 Completed CMP [Comprehensive Metabolic Panel] Stat Lab 12/10/24 12:10 Completed D-Dimer Stat Lab 12/10/24 12:10 Completed HIV Combo Stat Lab 12/10/24 12:10 Completed Hepatitis C Ab Qual. W/ RFX Stat Lab 12/10/24 12:10 Completed Trop I [Troponin I] Stat Lab 12/10/24 12:10 Completed Troponin I Q3H Lab 12/10/24 15:30 Ordered Troponin I Q3H Lab 12/10/24 18:30 Ordered MDM Narrative Medical Decision Narrative: In summary, patient is a 54-year-old female PMHx DVT (Plavix and Eliquis), obesity, history of abnormal EKG who presents to the ED with intermittent, generalized chest pain since Saturday. 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 She states that today she went to her PCP who sent her to the ED for complaint of chest pain. Patient states that she has had 3 cardiac catheterizations, the last one was last year, no stent placement. Denies any history of DE. Denies history of PE. Denies fever, chills, body aches, headache, visual disturbances, shortness of breath, abdominal pain, nausea, vomiting, dysuria, flank pain, diarrhea. Upon initial evaluation, patient is alert, oriented and cooperative. She is hemodynamically stable. She is speaking in full sentences. Physical exam is unremarkable. Differential diagnosis include ACS, pulmonary embolism, dissection, pneumonia, pneumothorax, infectious process, electrolyte abnormality, cardiac arrhythmia, among others Will proceed with hematologic labs and chest x-ray. Cardiac POCUS performed by attending. IV Toradol administered. CBC unremarkable for any leukocytosis, stable H&H. D-dimer 0.35. CMP unremarkable for any actionable abnormalities. First troponin < 0.01. Informal interpretation of the chest x-ray is unremarkable for any acute cardiopulmonary findings. No recent records from cardiology or emergency medicine to review. Upon reassessment, patient's chest pain has resolved. Given this, I feel that patient is safe to be discharged home at this time. I discussed with her that she will need to follow-up with cardiology for further evaluation. Advised her to make a follow-up appointment with her PCP. We discussed strict return precautions to the ED and patient verbalized understanding. She was hemodynamically stable and ambulatory without difficulty upon leaving the ED. <Gold Schrader MD - Last Filed: 12/10/24 15:13> Vital Signs Vital Signs: 12/10/24 12:25 12/10/24 12:30 12/10/24 13:01 Temperature 97.8 F Temperature Source Oral Pulse Rate 63 69 Pulse Rate [Right] 74 Respiratory Rate 20 20 19 Blood Pressure 118/68 103/66 L Blood Pressure [Right Arm] 123/49 L Blood Pressure Mean [Right Arm] 73 Blood Pressure Source Blood Pressure Source [Right Arm] Automatic Cuff 02 Sat by Pulse Oximetry 96 100 96 Oxygen Delivery Method Room Air Room Air 12/10/24 13:30 12/10/24 13:48 Temperature 97.8 F Temperature Source Oral Pulse Rate 71 74 Pulse Rate [Right] Respiratory Rate 21 17 Blood Pressure 111/68 111/64 Blood Pressure [Right Arm] Blood Pressure Mean [Right Arm] Blood Pressure Source Automatic Cuff Blood Pressure Source [Right Arm] 02 Sat by Pulse Oximetry 97 Oxygen Delivery Method Room Air Room Air Lab Data Labs: Lab Results 12/10/24 12:00: NT-Pro-B Natriuret Pep 46.5 12/10/24 12:10: WBC 8.9, RBC 5.32, Hgb 13.5, Hct 42.8, MCV 80.5 L, MCH 25.4 L, MCHC 31.5 L, RDW 15.8, Plt Count 311, MPV 10.1, Neut % (Auto) 64.1, Lymph % (Auto) 29.5, Randolph % (Auto) 5.3, Eos % (Auto) 0.0 L, Baso % (Auto) 0.9, Neut # (Auto) 5.7, Lymph # (Auto) 2.6, Randolph # (Auto) 0.5, Eos # (Auto) 0.0, Baso # (Auto) 0.1, D-Dimer 0.35, Sodium 138, Potassium 4.1, Chloride 101, Carbon Dioxide 28, Anion Gap 13.1, BUN 20 H, Creatinine 0.70, Estimated GFR 87, Est GFR ( Amer) 105, Glucose 93, Calcium 9.4, Total Bilirubin 0.6, AST 31, ALT 22, Alkaline Phosphatase 85, Troponin I < 0.01, Total Protein 7.6, Albumin 4.2, Globulin 3.4 H, Albumin/Globulin Ratio 1.2, HCV Ab RASHIDA w/Rflx PCR Qn Negative, HIV Ag/Ab Combo Qual Negative Response Orders (Tests/Meds): ORDERS Category Date Time Status CXR --portable [XR chest portable] Stat Exams 12/10/24 12:19 Completed POCUS Point of Care (ER Only) Stat Exams 12/10/24 12:20 Taken BNP [NT Pro Brain Natriuretic Pep.] Stat Lab 12/10/24 12:00 Completed CBC w/Auto Diff [Complete Blood Count Auto Diff] Stat Lab 12/10/24 12:10 Completed CMP [Comprehensive Metabolic Panel] Stat Lab 12/10/24 12:10 Completed D-Dimer Stat Lab 12/10/24 12:10 Completed HIV Combo Stat Lab 12/10/24 12:10 Completed Hepatitis C Ab Qual. W/ RFX Stat Lab 12/10/24 12:10 Completed Trop I [Troponin I] Stat Lab 12/10/24 12:10 Completed Troponin I Q3H Lab 12/10/24 15:30 Ordered Troponin I Q3H Lab 12/10/24 18:30 Ordered ECG Data Tracing #1: Attestation: I reviewed this ECG and interpreted as documented below: ([place] rhythm 67 bpm with [place] interval 173, QRS 95, QTc 393. No acute ischemic change. Normal axis) MDM Narrative Medical Decision Narrative: In summary, patient is a 54-year-old female PMHx DVT (Plavix and Eliquis), obesity, history of abnormal EKG who presents to the ED with intermittent, generalized chest pain since Saturday. 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 She states that today she went to her PCP who sent her to the ED for complaint of chest pain. Patient states that she has had 3 cardiac catheterizations, the last one was last year, no stent placement. Denies any history of DE. Denies history of PE. Denies fever, chills, body aches, headache, visual disturbances, shortness of breath, abdominal pain, nausea, vomiting, dysuria, flank pain, diarrhea. Upon initial evaluation, patient is alert, oriented and cooperative. She is hemodynamically stable. She is speaking in full sentences. Physical exam is unremarkable. Differential diagnosis include ACS, pulmonary embolism, dissection, pneumonia, pneumothorax, infectious process, electrolyte abnormality, cardiac arrhythmia, among others Will proceed with hematologic labs and chest x-ray. Cardiac POCUS performed by attending. IV Toradol administered. CBC unremarkable for any leukocytosis, stable H&H. D-dimer 0.35. CMP unremarkable for any actionable abnormalities. First troponin < 0.01. Informal interpretation of the chest x-ray is unremarkable for any acute cardiopulmonary findings. No recent records from cardiology or emergency medicine to review. Upon reassessment, patient's chest pain has resolved. Given this, I feel that patient is safe to be discharged home at this time. I discussed with her that she will need to follow-up with cardiology for further evaluation. Advised her to make a follow-up appointment with her PCP. We discussed strict return precautions to the ED and patient verbalized understanding. She was hemodynamically stable and ambulatory without difficulty upon leaving the ED. I was consulted by the JANICE, and we discussed the complexity of the problems being addressed. I approved the treatment and management plan for this patient's care in the Emergency Department, thus performing a substantive portion of the medical decision making. Gold Schrader MD
[2024-12-10 12:25] VITALS: BP 123/49; PULSE 74; RESP 20; TEMP 36.6; O2SAT 96; BMI 47.0
[2024-12-10 12:26] LABS: Basophils # 0.1 K/mm3 (0-0.2); Basophils % 0.9 % (0.1-2.0); Hematocrit 42.8 % (37.0-47.0); Hemoglobin 13.5 g/dL (12.2-16.2); Lymphocytes # 2.6 K/mm3 (0.7-4.5); Lymphocytes % 29.5 % (10-50); Mean Corpuscular HGB Conc 31.5 g/dL (31.8-35.4); Mean Corpuscular Hemoglobin 25.4 pg (27.0-31.2); Mean Corpuscular Volume 80.5 fl (81-99); Mean Platelet Volume 10.1 fl (7.4-10.4); Monocytes # 0.5 K/mm3 (0.1-1.0); Monocytes % 5.3 % (1.7-9.3); Neutrophils # 5.7 K/mm3 (1.8-7.8); Neutrophils % 64.1 % (37.0-80.0); Platelet Count 311 K/mm3 (142-424); Red Blood Count 5.32 M/mm3 (4.20-5.40); Red Cell Distribution Width 15.8 % (11.5-17.5); White Blood Count 8.9 K/mm3 (4.8-10.8)
[2024-12-10 12:30] VITALS: BP 118/68; PULSE 63; RESP 20; O2SAT 100
[2024-12-10 12:34] LABS: Alanine Aminotransferase 22 U/L (12-78); Albumin Level 4.2 g/dl (3.5-5.0); Albumin/Globulin Ratio 1.2 (1.1-1.8); Alkaline Phosphatase 85 U/L (38-126); Anion Gap 13.1 mEq/L (5-15); Aspartate Amino Transferase 31 U/L (14-36); Bilirubin,Total 0.6 mg/dl (0.2-1.3); Blood Urea Nitrogen 20 mg/dl (7-17); Calcium 9.4 mg/dl (8.4-10.2); Carbon Dioxide 28 mmol/L (22.0-30.0); Chloride 101 mmol/L (98-107); Estimated Glomerular Filt Rate 87 ml/min (>60); GFR (African American) 105 ML/MIN (>60); Globulin 3.4 g/dL (1.3-3.2); Glucose 93 mg/dl (74-100); Potassium 4.1 mmoL/L (3.5-5.1); Sodium 138 mmol/L (136-145); Total Protein,Serum 7.6 g/dl (6.3-8.2)
[2024-12-10 12:38] LABS: D-Dimer 0.35 ug/mL (0.0-0.5)
[2024-12-10 12:47] LABS: Troponin I < 0.01 ng/ml (0.00-0.034)
[2024-12-10 13:01] VITALS: BP 103/66; PULSE 69; RESP 19; O2SAT 96
[2024-12-10 13:11] LABS: NT Pro Brain Natriuretic Pep. 46.5 pg/mL (0-125)
[2024-12-10 13:30] VITALS: BP 111/68; PULSE 71; RESP 21; O2SAT 97
[2024-12-10 13:48] VITALS: BP 111/64; PULSE 74; RESP 17; TEMP 36.6; O2SAT 97
[2024-12-10 14:52] LABS: HIV Combo NEGATIVE (Negative)
[2024-12-10 15:01] LABS: Hepatitis C Ab Qual. W/ RFX NEGATIVE (Negative)
== END 2024-12-10 13:50 | disposition home or self-care (01) ==
PROVIDERS: Nurse Practitioner; Emergency Provider Emergency Medicine; PCP Nurse Practitioner Family
DX: R07.89 Other chest pain (principal); R07.9 Chest pain, unspecified; Z79.01 Long term (current) use of anticoagulants; Z86.79 Personal history of other diseases of the circulatory system; Z86.718 Personal history of other venous thrombosis and embolism; Z82.49 Family history of ischemic heart disease and other diseases of the circulatory system
CPT/HCPCS: 71045; 80053; 83880; 84484; 85025; 85378; 86803; 87389; 93005; 99284

== ENCOUNTER 2025-02-25 09:30 | Outpatient (CLI) | payer OTHER, SELFPAY ==
--- OUTSIDE RECORDS SUMMARY | 2024-12-28 13:30 | XMS_ITS | Encounter Summary ---
Author Organization [place] [address] Care Team Providers Care Moth Exterminator Name Role Phone Unavailable Primary Care Provider Unavailabl e Reason for Visit * Reason Comments Follow-up Follow up after slee p consulation Encounter Details Date Type Department Care Team (Latest Contact Info) Description 12/28/2024 1:30 PM EDT Office Visit SEP Pulmonology [facility] [address] [facility] [address] [place] [address] Karine Horne, ASSEMBLY LINE DRIVER [address] [place], [place] [id number] Moderate persistent asthma without complication (Primary Dx); CHEYENNE (obstructive sleep apnea) Social History Tobacco Use Types Packs/Day Years Used Date Smoking Tobacco: Never Passive Smoke Exposure: Never Smokeless Tobacco: Former Tobacco Cessation:Counseling Given: Not Answered Alcohol Use Standard Drinks/Week Comments Never 0 (1 standard drink = 0.6 oz pur e alcohol) Sexually Active Control Partners Comments Yes Other-see comments Female, Male Hysterect quintin Comments No Sex and Gender Information Value Date Recorded Sex Assigned at Not on file Legal Sex Female 3:10 PM EDT Gender Identity Not on file Sexual Orientation Not on file documented as of this encounter Last Filed Vital Signs Vital Sign Reading Time Taken Comments Blood Pressure 106/70 12/28/2024 1:49 PM EDT Pulse 78 12/28/2024 1:49 PM EDT Temperature - - Respiratory Rate - - Oxygen Saturation 98% 12/28/2024 1:49 PM EDT Inhaled Oxygen Concentration - - Weight 136.5 kg (301 lb) 12/28/2024 1:49 PM EDT Height 167.6 cm (5' 6 ) 12/28/2024 1:49 PM EDT Body Mass Index 48.58 12/28/2024 1:49 PM EDT documented in this encounter Ordered Prescriptions Prescription Sig Dispense Quantity Refills Last Filled Start Date End Date montelukast (SINGULAIR) 10 mg Oral TabletIndications:M oderate persistent asthma without complication Take 1 Tablet by mouth nightly. 90 Tablet 6 12/28/2024 documented in this encounter Progress Notes * Karine Horne, ASSEMBLY LINE DRIVER - 12/28/2024 1:30 PM EDT Images from the original note were not included. Brake Lining Finisher: Dr Anthony Chief Complaint Patient presents with Follow-up Follow up after sleep consulation HPI: Amy Crews returned to the office for asthma. No recent exacerbations Dyspnea worse over the last year + chest tightness No significant cough Only uses Trelegy twice a week Rarely uses albuterol She used nebulizer yesterday and felt like it helped with shortness of breath Never smoker ROS: Constitutional: no change in activity tolerance, no unexpected weight changes, no fever HENT: no congestion, no rhinorrhea, no sneezing, no post nasal drip Respiratory: + shortness of breath, no cough, no chest tightness, no wheezing Cardiovascular: no chest pain, no leg swelling Neurological: no confusion Current Pulmonary Related Medications: Singulair Nebulizer: duoneb Short acting inhaler: albuterol Long acting inhaler: Trelegy 200 Immunization History Administered Date(s) Administered Pfizer SARS-CoV-2 Bivalent Booster Vaccine 12+ Years (Kwon border) 11/28/2022 Pfizer SARS-CoV-2 Vaccine 12+ Yrs (Purple Cap) 09/06/2020, 09/26/2020 Pfizer SARS-CoV-2 Vaccine Elmer-Sucrose 12+ Years (Kwon Cap) 02/21/2022 Social History Tobacco Use Smoking Status Never Passive exposure: Never Smokeless Tobacco Former No Known Allergies Vitals: Vitals: 12/28/24 1349 BP: 106/70 BP Location: Left arm Patient Position: Sitting Pulse: 78 SpO2: 98% Weight: (!) 301 lb (136.5 kg) Height: 5' 6 (1.676 m) Body mass index is 48.58 kg/m??. Wt Readings from Last 3 Encounters: 12/28/24 (!) 301 lb (136.5 kg) 06/24/24 (!) 316 lb (143.3 kg) 06/18/24 (!) 316 lb (143.3 kg) Physical Exam: Constitutional: well-nourished, no acute distress LUNGS: respiratory effort is normal. No wheezing, no rhonchi, no rales. CARDIO: RRR, no edema PSYCH: behavior normal, thought content normal, A&O x3 Results: Chest xray 06/2024: No acute finding Eosinophils 0 FENO 12/28/24: 5 Allergen: + mouse Assessment & Plan Moderate persistent asthma without complication Discussed importance of using Trelegy 200 one puff once a day. She has only been using it 1-2 timesa week Continue Singulair at night Continue Duo-Neb QID PRN Continue albuterol as needed Orders: POCT FENO montelukast (SINGULAIR) 10 mg Oral Tablet; Take 1 Tablet by mouth nightly. CHEYENNE (obstructive sleep apnea) Sleep study next month No follow-ups on file. Call us with any questions or concerns prior to your next visit. Future Appointments Date Time Provider Department Center 01/20/2025 10:30 AM Jaron Story MD [facility] 01/25/2025 7:00 PM NITO BED 12 NITO Sleep Di [facility] 02/11/2025 10:45 AM Tereso Mcgee MD SEP Sleep Ed [facility] 03/02/2025 2:30 PM [facility] 05/24/2025 9:00 AM CDI WOOD STRIP BLOCK FLOOR INSTALLER VASCULAR RM 1 CDI SL VASC [facility]I WOOD STRIP BLOCK FLOOR INSTALLER 05/24/2025 10:00 AM Jessika Franco APRN SEP Vascular [facility] documented in this encounter Plan of Treatment Upcoming Encounters Date Type Department Care Team (Late st Contact Info) Description 03/02/2025 2:30 PM EDT Office Visit SEP Pulmonology [facility] [address] [facility] [address] [place] [address] Gustavo Anthony MD [address] [facility] 19 [place] [address] 04/13/2025 7:00 PM EDT Appointment [facility] Sleep [facility] [address] [place] [address] 05/24/2025 9:00 AM EDT Appointment [facility] MED OFC VASCULAR [address] [facility] [address] [place] [address] Talon Sprague DO [address] [facility] [address] [address] [place], [place] [id number] 05/24/2025 10:00 AM EDT Office Visit SEP Vascular Surg Edg [address] [facility] [address] [place] [address] Jessika Franco GLOBAL POSITION SYSTEM TECHNICIAN [address] [facility] [address] [place], [place] [id number] 06/28/2025 10:45 AM EDT Office Visit SEP Sleep Medicine [facility] [address] [address] Mimi Padilla GLOBAL POSITION SYSTEM TECHNICIAN [address] [place] [address] documented as of this encounter Procedures Procedure Name Priority Date/Time Associated Diagnosis Comments POCT FENO Routine 12/28/2024 2:16 PM EDT Moderate persistent asthma without complication documented in this encounter Results * POCT FENO (12/28/2024 2:16 PM EDT) ENTAS FENO 5 PPB SEP OFFICE 12/28/2024 2:16 PM EDT us Karine Horne NP POINT OF CARE TEST ORDERABLE S Final Result SEP OFFICE documented in this encounter Visit Diagnoses Diagnosis Moderate persistent asthma without complication- Primary Unspecified asthma CHEYENNE (obstructive sleep apnea) Obstructive sleep apnea (adult) (pediatric) documented in this encounter Discontinued Medications Medication Sig Discontinue Reason Start Date End Da te fluticasone-umeclidin -vilanter (TRELEGY ELLIPTA) 100-62.5-25 mcg Inhl Disk with Device INHALE ONE (1) PUFF EVERY DAY BY INHALATION ROUTE FOR 30 DAYS. Cancelled by Midlevel 12/28/2024 montelukast (SINGULAIR) 10 mg Oral Tablet TAKE ONE (1) TABLET BY MOUTH NIGHTLY Reorder 11/18/2024 12/28/2024 documented as of this encounter Historical Medications * This list may reflect changes made after this encounter. fluticasone-umeclid in-vilanter (TRELEGY ELLIPTA) 200-62.5-25 mcg Inhl Disk with DeviceIndications:M oderate persistent asthma without complication Inhale 1 Puff into the lungs daily. added in this encounter
--- OUTSIDE RECORDS SUMMARY | 2025-01-25 19:00 | XMS_ITS | Encounter Summary ---
Author Organization [place] [address] Care Team Providers Care Carbide Grinder Name Role Phone Unavailable Primary Care Provider Unavailabl e Reason for Referral * Sleep Center (Routine) - Closed Specialty Diagnoses / Procedures Referred By Oni rahman Referred To Contact Sleep Center Diagnoses Morbid obesity (HCC) Obstructive sleep apnea Gastroesophageal reflux disease with esophagitis, unspecified whether hemorrhage Procedures POLYSOMNOGRAPHY 4 OR MORE PARAMETERS POLYSOMNOGRAPHY 4 OR MORE PARAMETERS ME POLYSOM ANY AGE SLEEP STAGE 1-3 ADDL JOSEPH ATTND ME POLYSOM 6/>YRS SLEEP 4/> ADDL JOSEPH ATTND ME ELECTROENCEPHALOGRAM EXTEND MONITORING 41-60 MIN ME POLYSOM 6/>YRS SLEEP W/CPAP 4/> ADDL JOSEPH ATTND ME SLEEP STD REC VNTJ RESPIR ECG/HRT RATE&O2 ATTN Tereso Mcgee MD [address] [address] Phone: tel: fax: [facility] Sleep Disorder Center [address] [place] [address] Phone: tel: fax: Referral ID Status Reason Start Date Expiration Date Visits Re quested Visits Authorized [id number] Closed 12/25/2024 12/25/2025 1 1 Reason for Visit * Reason Comments Sleep Study * Sleep Center (Routine) - Closed Specialty Diagnoses / Procedures Referred By Oni rahman Referred To Contact Sleep Center Diagnoses Morbid obesity (HCC) Obstructive sleep apnea Gastroesophageal reflux disease with esophagitis, unspecified whether hemorrhage Procedures POLYSOMNOGRAPHY 4 OR MORE PARAMETERS POLYSOMNOGRAPHY 4 OR MORE PARAMETERS ME POLYSOM ANY AGE SLEEP STAGE 1-3 ADDL JOSEPH ATTND ME POLYSOM 6/>YRS SLEEP 4/> ADDL JOSEPH ATTND ME ELECTROENCEPHALOGRAM EXTEND MONITORING 41-60 MIN ME POLYSOM 6/>YRS SLEEP W/CPAP 4/> ADDL JOSEPH ATTND ME SLEEP STD REC VNTJ RESPIR ECG/HRT RATE&O2 ATTN Tereso Mcgee MD [address] [facility] Building [address] [place] [address] Phone: tel: fax: [facility] Sleep Disorder Center [place] [address] [facility] [address] [place] [address] Phone: tel: fax: Referral ID Status Reason Start Date Expiration Date Visits Re quested Visits Authorized [id number] Closed 12/25/2024 12/25/2025 1 1 Encounter Details Date Type Department Care Team (Latest Contact Info) Description 01/25/2025 7:00 PM EDT - 01/25/2025 11:59 PM EDT Hospital Encounter [facility] Sleep Disorder Center [place] [address] [facility] [address] [place] [address] Morbid obesity (HCC); Obstructive sleep apnea; Gastroesophageal reflux disease with esophagitis, unspecified whether hemorrhage Discharge Disposition: Home or Self Care Social History Tobacco Use Types Packs/Day Years Used Date Smoking Tobacco: Never Passive Smoke Exposure: Never Smokeless Tobacco: Former Alcohol Use Standard Drinks/Week Comments Never 0 [...] on file documented as of this encounter Medications at Time of Discharge albuterol (PROVENTIL) 2.5 mg /3 mL (0.083 %) Inhl Solution for Nebulization as needed. 0 8 albuterol-ipratro pium (DUO-NEB) 0.5 mg-3 mg(2.5 mg base)/3 mL Inhl Solution for Nebulization INHALE CONTENTS OF ONE (1) VIAL FOUR (4) TIMES DAILY NEEDED apixaban (ELIQUIS) 5 mg Oral Tablet Take 5 mg by mouth 2 times daily. clopidogreL (PLAVIX) 75 mg Oral Tablet TAKE ONE (1) TABLET BY MOUTH EVERY DAY 30 Tablet 3 5 ergocalciferol (DRISDOL) 1,250 mcg (50,000 unit) Oral Capsule TAKE ONE (1) CAPSULE EVERY WEEK BY MOUTH 2 estradiol (ESTRACE) 0.5 mg Oral Tablet Take 1 mg by mouth daily. 0 8 estradioL (ESTRACE) 1 mg Oral Tablet Take 1 mg by mouth daily. as directed 1 fluticasone propionate (FLONASE) 50 mcg/actuation Nasl [place], Suspension SPRAY ONE (1) SPRAY EVERY DAY BY INTRANASAL ROUTE. 4 fluticasone propionate (FLOVENT HFA) 110 mcg/actuation Inhl HFA Aerosol Inhaler fluticasone-umecl idin-vilanter (TRELEGY ELLIPTA) 200-62.5-25 mcg Inhl Disk with DeviceIndications :Moderate persistent asthma without complication Inhale 1 Puff into the lungs daily. fUROsemide (LASIX) 20 mg Oral Tablet Take 20 mg by mouth daily. 0 8 gabapentin (NEURONTIN) 100 mg Oral Capsule Take 100 mg by mouth as needed for Pain. imipramine (TOFRANIL) 25 mg Oral Tablet Take by mouth nightly. isosorbide mononitrate (IMDUR) 30 mg Oral Tablet Sustained Release 24 hr 4 losartan (COZAAR) 100 mg Oral Tablet Take 100 mg by mouth daily. 1 losartan-hydrochl orothiazide (HYZAAR) 50-12.5 mg Oral Tablet TAKE ONE (1) TABLET BY MOUTH EVERY DAY 30 Tablet 1 5 metoprolol succinate (TOPROL-XL) 25 mg Oral Tablet Sustained Release 24 hr Take 25 mg by mouth daily. 3 montelukast (SINGULAIR) 10 mg Oral TabletIndications :Moderate persistent asthma without complication Take 1 Tablet by mouth nightly. 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 30 Tab 3 1 omeprazole (PRILOSEC) 40 mg Oral Capsule, Delayed Release(E.C.) Take 40 mg by mouth daily. 0 8 oxybutynin (DITROPAN-XL) 10 mg Oral Tablet Extended Rel 24 hr TAKE ONE (1) TABLET EVERY DAY BY ORAL ROUTE. pantoprazole (PROTONIX) 40 mg Oral Tablet, Delayed Release (E.C.) Take 40 mg by mouth daily. 1 potassium chloride (KLOR-CON) 10 mEq Oral Tablet Sustained Release 2 PREMARIN Vagl Cream INSERT 0.5 APPLICATORSFUL BY VAGINAL ROUTE NIGHTLY FOR TWO (2) WEEKS THEN TWICE WEEKLY AFTER THAT PROAIR HFA 90 mcg/actuation Inhl HFA Aerosol Inhaler 1 Puff as needed. 0 8 ranitidine (ZANTAC) 150 mg Oral Capsule Take 150 mg by mouth nightly. sertraline (ZOLOFT) 50 mg Oral Tablet TAKE ONE (1) TABLET EVERY DAY BY ORAL ROUTE. 2 spironolactone (ALDACTONE) 25 mg Oral Tablet TAKE ONE (1) TABLET EVERY DAY BY ORAL ROUTE FOR 30 DAYS. torsemide (DEMADEX) 100 mg Oral Tablet TAKE 0.5 TABLETS EVERY DAY BY ORAL ROUTE FOR 30 DAYS. 4 torsemide (DEMADEX) 20 mg Oral Tablet Take 2 Tablets by mouth daily. documented as of this encounter Discharge Disposition Disposition Code Departure Means Destination Home or Self Care documented in this encounter Progress Notes * Dane Petty, ELOY - 01/25/2025 7:00 PM EDT TB RPSGT (NITO-3) NPSG reveals N1 - REM with sleep shifted toward N2. A/HI = 5/10. Snore = 5/10. LowSp02 = 76%. No PLMs or abnormal behavior observed. ECG is within normal limits. No alcohol, and meds were taken as usual. Subjective Impression: Better than normal. documented in this encounter Plan of Treatment Upcoming Encounters Date Type Department Care Team (Late st Contact Info) Description 03/02/2025 2:30 PM EDT Office Visit SEP Pulmonology [facility] [address] [facility] 19 [place] [address] Gustavo Anthony MD [address] [address] 04/13/2025 7:00 PM EDT Appointment [facility] Sleep Disorder Center [address] [place] [address] 05/24/2025 9:00 AM EDT Appointment [facility] VASCULAR [address] [place] [address] [address] [place] [address] Talon Sprague [address] [place], [place] [id number] 05/24/2025 10:00 AM EDT Office Visit SEP Vascular Surg Edg [address] [place] [address] Drive [address] [place] [address] Jessika Franco APRN [address] [facility] [address] [place], [place] [id number] 06/28/2025 10:45 AM EDT Office Visit SEP Sleep Medicine [facility] [address] [facility] 19 [place] [address] Mimi Padilla APRN [address] [phone] Scheduled Orders Name Type Priority Associated Diagnoses Orde r Schedule ME POLYSOM 6/>YRS SLEEP 4/> ADDL JOSEPH ATTND ME Charge Routine Obstructive sleep apnea Ordered: 01/25/2025 documented as of this encounter Procedures Procedure Name Priority Date/Time Associated Diagnosis Comments POLYSOMNOGRAPHY 4 OR MORE PARAMETERS Routine 01/25/2025 9:52 AM EDT Morbid obesity (HCC) Obstructive sleep apnea Gastroesophageal reflux disease with esophagitis, unspecified whether hemorrhage documented in this encounter Results * POLYSOMNOGRAPHY 4 OR MORE PARAMETERS (01/25/2025 9:52 AM EDT) [facility] Yoel CORNEJO OVERALL RESULT [facility] DATE OF STUDY 01/25/2025 [facility] Study Type Adult SE LAB PATIENT WEIGHT 301.0 [facility] APNEA INDEX 4.4 SE LAB Apnea Hypopnea Index 87.9 [facility] RDI Index 87.9 [facility] Central Apnea Index 1.4 [facility] REM AHI 91.0 [facility] Min O2 Saturation 76 [facility] RDI REM 91.0 [facility] RDI nonREM 85.1 [facility] CPAP Device Name [facility] CPAP Pressure [facility] IPAP Pressure [facility] EPAP Pressure [facility] Auto Pressure Support [facility] Supplemental O2 [facility] Mask Type [facility] Mask Size [facility] APAP Range [facility] Auto-IPAP Max [facility] Auto-IPAP Min [facility] Pressure Support [facility] PAP Compliance % [facility] Compliance Days [facility] Residual AHI [facility] PAP 90-95th Percentile [facility] 01/25/2025 9:52 AM EDT us Tereso Mcgee MD SLEEP CENTER ORDERABLES Final Re sult [facility] [address] [place] [id number] documented in this encounter Visit Diagnoses Diagnosis Morbid obesity (HCC) Morbid obesity Obstructive sleep apnea Obstructive sleep apnea (adult) (pediatric) Gastroesophageal reflux disease with esophagitis, unspecified whether hemorrhage documented in this encounter
--- OUTSIDE RECORDS SUMMARY | 2025-02-11 10:45 | XMS_ITS | Encounter Summary ---
Author Organization [facility] [place] [address] Care Team Providers Care Onsite Health Coach Name Role Phone Unavailable Primary Care Provider Unavailabl e Reason for Referral * Sleep Center (Routine) - Pending Review Specialty Diagnoses / Procedures Referred By Contac t Referred To Contact Diagnoses Obstructive sleep apnea Former smoker Morbid obesity with BMI of 40.0-44.9, adult (HCC) May-Thurner syndrome Procedures CPAP TITRATION WA POLYSOM 6/>YRS SLEEP W/CPAP 4/> ADDL JOSEPH ATTND Tereso Mcgee MD [address] [place] [address] Phone: tel: fax: Referral ID Status Reason Start Date Expiration Date V isits Requested Visits Authorized [id number] Pending Review 02/11/2025 02/11/2026 1 1 * Consultation (Routine) - Pending Review Specialty Diagnoses / Procedures Referred By Contac t Referred To Contact Diagnoses Obstructive sleep apnea Former smoker Morbid obesity with BMI of 40.0-44.9, adult (HCC) May-Thurner syndrome Tereso Mcgee MD [address] [place] [phone] Phone: tel: fax: Bibi Amin MD [address] [place] [address] Phone: tel: fax: Referral ID Status Reason Start Date Expiration Date V isits Requested Visits Authorized [id number] Pending Review 02/11/2025 02/11/2026 99 99 Encounter Details Date Type Department Care Team (Late st Contact Info) Description 02/11/2025 10:45 AM EDT Office Visit [facility] 651 [facility] Building [address] [place] [address] Tereso Mcgee MD [address] [address] Obstructive sleep apnea (Primary Dx); Former smoker; Morbid obesity with BMI of 40.0-44.9, adult (HCC); May-Thurner syndrome Social History Tobacco Use Types Packs/Day Years [...] on file documented as of this encounter Progress Notes * Tereso Mcgee MD - 02/11/2025 10:45 AM EDT Images from the original note were not included. Initial Follow-Up Visit 02/11/2025 Tereso Mcgee MD MEDICAL DECISION MAKING Sleep Medicine Diagnoses Specialty Problems Sleep Disorder Problems Morbid obesity with BMI of 40.0-44.9, adult (HCC) Co morbidites impacted by sleep Medicine Diagnoses addressed today 1. Obstructive sleep apnea AMB REFERRAL FOR BARIATRICS CPAP TITRATION 2. Former smoker AMB REFERRAL FOR BARIATRICS CPAP TITRATION 3. Morbid obesity with BMI of 40.0-44.9, adult (HCC) AMB REFERRAL FOR BARIATRICS CPAP TITRATION 4. May-Thurner syndrome AMB REFERRAL FOR BARIATRICS CPAP TITRATION Treatment Options Based upon my clinical evaluation, sleep study and other diagnostic study results as described below, I recommend: Facility based PAP Titration. APAP is contraindicated due to associated moderate-severe pulmonary disease Weight loss program Avoid alcohol and benzodiazepine sedatives for 4 hours before bedtime Optimize sleep habits and duration Relaxation/stress management training Caution driving/hazardous situations Consider glp1 rx refer to pcp Nikhil Abdi Discussed in detail the cardiovascular impact of OSAS and improvement with treatment Fu c pulmonary med O2 to spo2 >88% The patient understands and agrees with this treatment plan. Counseling and/or coordination of care dominated more than 50% of this physician/patient and/or family encounter. Total length of time this encounter = 30 minutes Total counseling/coordination time = 15 minutes INTERVAL HISTORY Amy Crews is a 54 y.o. female who returns to review the results of her recent sleep disorder evaluation. Since her last visit she has no new complaints PATIENT- FAMILY COUNSELING During counseling and/or activities to coordinate care, our findings and recommendations were explained to Amy in detail, including: Sleep Medicine Diagnoses & Treatment Options Her sleep medicine diagnoses and relevant treatment options as itemized above were explained using patient specific educational materials given to the patient (see After Visit Summary in the Patient Instructions section of this visit). Diagnostic Studies No data recorded 1 - 10 Normal 21 - 30 Moderate Depression 11 - 16 Mild Mood Disturbance 31 - 40 Severe Depression 17 - 20 Borderline Clinical Depression > 40 Extreme Depression Ector Sleepiness Scale Total score: 23 (12/25/2024 10:00 AM), > 10 indicates Excessive Daytime Sleepiness Most Recent Diagnostic PSG No data recorded Lab Results Component Value Date DATEOFSTUDY 01/25/2025 01/25/2025 STUDYTYPE Adult 01/25/2025 PTWEIGHT 301.0 01/25/2025 RDIINDEX 87.9 01/25/2025 APNEAINDEX 4.4 01/25/2025 APNEAHYPOIND 87.9 01/25/2025 CENTAPNEAIND 1.4 01/25/2025 REMAHI 91.0 01/25/2025 DFMZ6IVE 76 01/25/2025 RDIREM 91.0 01/25/2025 No results found for: AUTOIPAPMAX , AUTOIPAPMIN , PRESSURESUP , PAPCOMPPERCT , RESIDUALAHI , [id number] , ALICEOVREST Medical Comorbidity Pulmonary Functions Testing Results: No results found for: FEV1 , FVC , FEM6IXB , TLC , DLCO (FEV1 < 60% predicted = moderate or severe pulmonary disease) No results found for this or any previous visit. ABG No results found for: PCO2 , HCO3 (pCO2 > 45 or HCO3 > 29 indicates hypoventilation) Echocardiogram No results found for this or any previous visit. Other Labs Lab Results Component Value Date/Time GLU 80 07/08/2024 09:34 AM BUN 13 07/08/2024 09:34 AM CREATININE 0.86 07/08/2024 09:34 AM CREATININE 0.6 05/02/2023 08:22 AM NA 138 07/08/2024 09:34 AM K 4.0 07/08/2024 09:34 AM CL 100 07/08/2024 09:34 AM CO2 27 07/08/2024 09:34 AM Lab Results Component Value Date/Time WBC 8.1 07/08/2024 09:34 AM HGB 12.8 07/08/2024 09:34 AM HCT 43.1 07/08/2024 09:34 AM PLT 340 07/08/2024 09:34 AM documented in this encounter Plan of Treatment Upcoming Encounters Date Type Department Care Team (Late st Contact Info) Description 03/02/2025 2:30 PM EDT Office Visit [facility] [address] [phone] Gustavo Anthony MD [address] [address] 04/13/2025 7:00 PM EDT Appointment [facility] Sleep Disorder Center [address] [place] [address] 05/24/2025 9:00 AM EDT Appointment [facility] [address] [place] [address] [address] [place] [address] Talon Sprague DO [address] [place] [address] [address] [place] [address] 05/24/2025 10:00 AM EDT Office Visit [facility] V[facility] Surg [facility] [address] [place] [address] Jessika Franco BOSOM PRESSER [address] [place] [address] 06/28/2025 10:45 AM EDT Office Visit [facility] Sleep Medicine CV [address] [place] [facility] Building [address] [place] [address] Mimi Padilla, BOSOM PRESSER 651 [facility] Building [address] [place] [address] Scheduled Orders Name Type Priority Associated Diagnoses Orde r Schedule CPAP TITRATION Sleep Center Routine Obstructive sleep apnea Former smoker Morbid obesity with BMI of 40.0-44.9, adult (HCC) May-Thurner syndrome 1 Occurrences starting 02/11/2025 until 02/11/2026 Scheduled Referrals Name Type Priority Associated Diagnoses Order Schedule AMB REFERRAL FOR BARIATRICS Outpatient Referral Routine Obstructive sleep apnea Former smoker Morbid obesity with BMI of 40.0-44.9, adult (HCC) May-Thurner syndrome Ordered: 02/11/2025 documented as of this encounter Visit Diagnoses Diagnosis Obstructive sleep apnea- Primary Obstructive sleep apnea (adult) (pediatric) Former smoker Personal history of tobacco use, presenting hazards to health Morbid obesity with BMI of 40.0-44.9, adult (HCC) May-Thurner syndrome Compression of vein documented in this encounter
--- OUTSIDE RECORDS SUMMARY | 2025-02-25 09:34 | XMS_ITS | Encounter Summary ---
Author Organization [facility] [place] [address] Care Team Providers Care Business Transformation Analyst Name Role Phone Unavailable Primary Care Provider Unavailabl e Encounter Details Date Type Department Care Team (Latest Contact Info) Description 02/08/2025 Travel Social History Tobacco Use Types Packs/Day Years [...] on file documented as of this encounter Plan of Treatment Upcoming Encounters Date Type Department Care Team (Late st Contact Info) Description 03/02/2025 2:30 PM EDT Office Visit [facility] Pul[facility]ology [facility] [address]51 [place] [facility] Building [address] [place] [phone] Gustavo Anthony MD 651 [facility] 19 [place] [address] 04/13/2025 7:00 PM EDT Appointment [facility] Sleep Disorder Center [address] [place] [address] 05/24/2025 9:00 AM EDT Appointment [facility] [address] [place] [address] [place] [address] Talon Sprague, DO [address] [place] [address] [address] [place], [place] [id number] 05/24/2025 10:00 AM EDT Office Visit [facility] [address] [facility] [address] [place] [address] Jessika Franco APRN [address] [place] [address] 06/28/2025 10:45 AM EDT Office Visit [facility] Sleep Medicine [facility] [address] [place] [address] [address] Mimi Padilla, COOKY PACKER 651 [facility] 19 [place] [address] documented as of this encounter Visit Diagnoses Not on filedocumented in this encounter
--- OUTSIDE RECORDS SUMMARY | 2025-02-25 09:34 | XMS_ITS | Encounter Summary ---
Author Organization [facility] [address] Care Team Providers Care Manager Retention Name Role Phone Unavailable Primary Care Provider Unavailabl e Reason for Visit * Reason Comments Medication Refill Encounter Details Date Type Department Care Team (Late Contact Info) Description 01/19/2025 Refill [facility] [address] [facility] [address] [place] [address] May, Jessika Chance PAINTER SHIPYARD [address] [place], [place] [id number] Medication Refill Social History Tobacco Use Types Packs/Day Years [...] on file documented as of this encounter Ordered Prescriptions Prescription Sig Dispense Quantity Refills Last Filled Start Date End Date clopidogreL (PLAVIX) 75 mg Oral Tablet TAKE ONE (1) TABLET BY MOUTH EVERY DAY 30 Tablet 3 01/19/2025 documented in this encounter Plan of Treatment Upcoming Encounters Date Type Department Care Team (Late Contact Info) Description 03/02/2025 2:30 PM EDT Office Visit [facility] Pul[facility] 651 [facility] Building [address] [place] [phone] Gustavo Anthony MD [address] [facility] 19 [place] [address] 04/13/2025 7:00 PM EDT Appointment [facility] Sleep Disorder Center [address] [place] [address] 05/24/2025 9:00 AM EDT Appointment [facility] [address] [place] [address] [address] [place] [address] Talon Sprague, DO [address] [place] [address] [address] [place], [place] [id number] 05/24/2025 10:00 AM EDT Office Visit [facility] [address] [place] [address] [address] [place] [address] Jessika Franco APRN [address] [place] [address] [address] [place] [address] 06/28/2025 10:45 AM EDT Office Visit [facility] Sleep Medicine [facility] 651 [place] [facility] 19 [place] [address] Mimi Padilla APRN [address] [facility] 19 [place] [address] documented as of this encounter Visit Diagnoses Not on filedocumented in this encounter Discontinued Medications Medication Sig Discontinue Reason Start Date End Da te clopidogreL (PLAVIX) 75 mg Oral Tablet TAKE ONE (1) TABLET BY MOUTH DAILY. 05/18/2024 01/19/2025 documented as of this encounter
--- OUTSIDE RECORDS SUMMARY | 2025-02-25 09:34 | XMS_ITS | Clinical Summary ---
Author Organization [facility] Address [address] [place] [address] Care Team Providers Care Handcrew Foreman Name Role Phone Dinorah Shore APPRENTICE JOCKEY Primary Care Provider [phone] Family History Medical History Relation Name Comments Heart attack Father Conversions - Other Mother deep bebo ous thrombosis Diabetes Mother Hypertension Mother Stroke Mother Relation Name Status Comments Father Mother Social History Tobacco Use Types Packs/Day Years Used Date Smoking Tobacco: Former Alcohol Use Standard Drinks/Week Comments No 0 (1 standard drink = 0.6 oz pur e alcohol) Comments Unknown Sex and Gender Information Value Date Recorded Sex Assigned at Not on file Legal Sex Female 7:34 PM EDT Gender Identity Not on file Sexual Orientation Not on file Last Filed Vital Signs Vital Sign Reading Time Taken Comments Blood Pressure - - Pulse - - Temperature - - Respiratory Rate - - Oxygen Saturation - - Inhaled Oxygen Concentration - - Weight 120 kg (264 lb) 06/28/2014 11:25 AM EDT Height - - Body Mass Index - - Plan of Treatment Health Maintenance Due Date Last Done Comments [facility]-Depression Screening 1968 [facility]-Infant/Child/Adol SDOH Screenings 1968 [facility]- SDOH Screenings 1986 [facility]-Adult SDOH Screenings 1986 [facility]-Hepatitis B Vaccines (1 of 3 - 19+ 3-dose series) 1987 [facility]-Pap Smear 1989 [facility]-Cervical Cancer Screening 1998 [facility]-HPV/Cotest 1998 CT Colonography 2013 Colonoscopy 2013 FIT-DNA 2013 FIT 2013 FOBT 2013 Sigmoidoscopy 2013 [facility]-Colorectal Cancer Screening 2013 [facility]-Pneumococcal Vaccine: 50 + Years (1 of 1 - PCV) 2018 [facility]-Zoster Vaccines (1 of 2) 2018 [id number] Vaccine ( season) 2024 02/21/2022, 09/26/2020, 09/06/2020 [facility]-Influenza Vaccine (Seaso n Ended) 2025 06/09/2012 [facility]-DTaP,Tdap,and Td Vaccine s (2 - Td or Tdap) 04/16/2027 04/16/2017 [facility]-Hepatitis A Vaccines Aged Out 019, 05/08/2018 No longer eligible based on patient's age to complete this topic HPV Vaccines Aged Out No longer eligi ble based on patient's age to complete this topic [facility]-HIB Vaccines Aged Out No longer e ligible based on patient's age to complete this topic [facility]-IPV Vaccines Aged Out No longer e ligible based on patient's age to complete this topic [facility]-Rotavirus Vaccines Aged Out No lo nger eligible based on patient's age to complete this topic Care Teams Handcrew Foreman Relationship Specialty Start Date End Date Dinorah Shore, APPRENTICE JOCKEY [address] [place] [address] PCP - General 11/13/22
--- OUTSIDE RECORDS SUMMARY | 2025-02-25 09:34 | XMS_ITS | Clinical Summary ---
Author Organization [facility] Address [address] [place] [address] Care Team Providers Care Branch Retail Executive Name Role Phone Nuzhat Kwon MD Primary Care Provider [phone] Source Comments This information has been disclosed to you from confidential records protectedfrom disclosure by state law. You shall make no further disclosure of thisinformation without the specific, written, and informed release of theindividual to whom it pertains, or as otherwise permitted by law. A generalauthorization for the release of medical or other information is not sufficientfor the purposes of therelease of HIV test results or diagnoses. [id number] Allergies No known active allergies Medications omeprazole (PRILOSEC) 20 MG capsule Take 20 mg by mouth every morning before breakfast. Active olmesartan (BENICAR) 20 MG tablet Take 12.5 mg by mouth daily. Active ranitidine (ZANTAC) 150 MG capsule Take 150 mg by mouth daily. Active furosemide (LASIX) 20 MG tablet Take 20 mg by mouth daily. Active aspirin 81 MG EC tablet Take 81 mg by mouth daily. Active meloxicam (MOBIC) 15 MG tablet Take 15 mg by mouth daily. Active nitroGLYCERIN (NITROSTAT) 0.[address] 0.4 mg under the tongue every 5 minutes as needed for Chest pain. Dissolve 1 tablet under the tongue for chest pain. Repeat if needed every 5 minutes for 2 more doses. Active Social History Tobacco Use Types Packs/Day Years Used Date Smoking Tobacco: Former Cigarettes Alcohol Use Standard Drinks/Week Comments No 0 (1 standard drink = 0.6 oz pur e alcohol) 07/24 Comments No Sex and Gender Information Value Date Recorded Sex Assigned at Not on file Legal Sex Female 3:38 PM EDT Gender Identity Not on file Sexual Orientation Not on file Last Filed Vital Signs Vital Sign Reading Time Taken Comments Blood Pressure 124/84 07/25/2015 9:50 AM EST Pulse 80 07/25/2015 9:50 AM EST Temperature 36.2 C (97.2 F) 07/25/2015 9:50 AM EST Respiratory Rate 16 07/25/2015 9:50 AM EST Oxygen Saturation 100% 07/25/2015 9:50 AM EST Inhaled Oxygen Concentration 100% 07/25/2015 9 :50 AM EST Weight 117 kg (258 lb) 07/25/2015 9:50 AM EST Height 167.6 cm (5' 6 ) 07/25/2015 9:50 AM EST Body Mass Index 41.64 07/25/2015 9:50 AM EST Plan of Treatment Not on file Insurance Care Teams Branch Retail Executive Relationship Specialty Start Date End Date Nuzhat Kwon MD [address] [address] PCP - General Internal Medicine 07/06/15
--- OUTSIDE RECORDS SUMMARY | 2025-02-25 09:34 | XMS_ITS | Data Portability ---
Author Organization [place] - [facility] - [facility], Formerly [facility] Address [address] [place] [address] Care Team Providers Care Mental Health Aides Teacher Name Role Phone PRIMARY PLUS - RUBY Primary Care Provider Assessment Encounter Date Assessment Date Assessment LastModified by Organization Details LastModified Time 12/16/2023 12/16/2023 Patient Educatio n was printed, I have reviewed the Past Medical, Family, and Social Histories along with ROS and all orders in today's record, and have noted any changes. Medications, charts and records reviewed in full today. - blood pressure 142/90, heart rate 83, weight 370 lb. Oxygen saturation 96% on room air. Weight is up 3 lb since last visit. - LAST ECHO: 11/2023 reveals normal LV chamber size, thickness, and global LV systolic function. LVEF 60% to 65%. Normal mitral valve leaflets with trace mitral regurgitation. Normal LV diastolic filling pattern. LAST ISCHEMIC EVAL: 09/2023 revealed a normal perfusion imaging study with normal LVEF of 73%. No scintigraphic evidence of ischemia. LAST HEART CATH: 03/26/2018 LHC and RHC. Normal coronary arteries. LAST LDL: 03/17/18- . PAST LHC: 02/24/2015. CTA chest with PE protocol: 10/2023 revealed no evidence of pulmonary embolism on this exam. Mild bibasilar atelectasis noted as well as postoperative changes consistent with a cholecystectomy. - Plan: Increase torsemide to 50 mg once daily. Discontinue potassium chloride. Start spironolactone. Referral to pulmonology. Refill Eliquis. Follow-up in 6 to 8 weeks - -Continue other current medications. -Continue aggressive risk factor modification. -Recommend LDL less than 100. -Encouraged regular exercise and activity. - This note was dictated using auctionpoint software. If something is unclear, or does not make sense, please do not hesitate to contact our office at [phone] for clarification. Not available 12/16/2023 17:32:20 02/11/2024 02/11/2024 Patient Educatio n was printed, I have reviewed the Past Medical, Family, and Social Histories along with ROS and all orders in today's record, and have noted any changes. Medications, charts and records reviewed in full today. - blood pressure 118/84, heart rate 70, weight 323.0 lb. Oxygen saturation is 98% on room air. Weight is down 7 lb since last visit. EKG today reveals sinus rhythm with a rate of 70 beats per minute, nonspecific T-wave abnormality, abnormal EKG. - LAST ECHO: 11/2023 reveals normal LV chamber size, thickness, and global LV systolic function. LVEF 60% to 65%. Normal mitral valve leaflets with trace mitral regurgitation. Normal LV diastolic filling pattern. LAST ISCHEMIC EVAL: 09/2023 revealed a normal perfusion imaging study with normal LVEF of 73%. No scintigraphic evidence of ischemia. LAST HEART CATH: 03/26/2018 LHC and RHC. Normal coronary arteries. LAST LDL: 03/17/18- . PAST LHC: 02/24/2015. CTA chest with PE protocol: 10/2023 revealed no evidence of pulmonary embolism on this exam. Mild bibasilar atelectasis noted as well as postoperative changes consistent with a cholecystectomy. - Risks and benefits and alternatives of left heart catheterization were discussed in full today. These include, but are not limited to, injury to the blood vessel, fistula, pseudoaneurysm, hematoma, stroke, distal embolization, myocardial infarction, and infection. Meds and chart reviewed in full today. The patient has a frailty score of three. The patient has suspected coronary artery disease. The patient is having typical angina, worsening angina, class four angina. No recent lipid panel. The patient is not a candidate for beta hesham due to past bradycardia and hypotension. The patient is likewise not a candidate for calcium channel blockade due to bradycardia and hypotension. - Plan: Left and right heart catheterization at [facility]. Hold Eliquis for two days prior to procedure. Laboratory studies. Start isosorbide mononitrate 30 mg once daily with breakfast. Follow-up one week after procedure. - -Continue other current medications. -Continue aggressive risk factor modification. -Recommend LDL less than 100. -Encouraged regular exercise and activity. - This note was dictated using auctionpoint software. If something is unclear, or does not make sense, please do not hesitate to contact our office at [phone] for clarification. Not available 02/11/2024 09:24:15 05/07/2024 05/07/2024 Patient Educatio n was printed, I have reviewed the Past Medical, Family, and Social Histories along with ROS and all orders in today's record, and have noted any changes. Medications, charts and records reviewed in full today. - blood pressure 138/88, repeat blood pressure 132/80, heart rate 73, weight 318.2 lb. Oxygen saturation is 97% on room air. - LAST ECHO: 11/2023 reveals normal LV chamber size, thickness, and global LV systolic function. LVEF 60% to 65%. Normal mitral valve leaflets with trace mitral regurgitation. Normal LV diastolic filling pattern. LAST ISCHEMIC EVAL: 09/2023 revealed a normal perfusion imaging study with normal LVEF of 73%. No scintigraphic evidence of ischemia. LAST HEART CATH: 03/2024 revealed normal coronary arteries with mild elevation in LVEDP and pulmonary capillary wedge pressures signifying mild pulmonary hypertension. Normal LVEF. PAST LHC: 03/26/2018 LHC and RHC. Normal coronary arteries. PAST LHC: 02/24/2015. CTA chest with PE protocol: 10/2023 revealed no evidence of pulmonary embolism on this exam. Mild bibasilar atelectasis noted as well as postoperative changes consistent with a cholecystectomy. - Plan: Keep appointment for polysomnography in June as scheduled. Keep follow-up with sleep Medicine and pulmonology as scheduled thereafter. Stop isosorbide mononitrate. Stop losartan with hydrochlorothiazid e. Start Entresto, samples given. Courtesy refill of Henry. Follow-up in three months. - -Continue other current medications. -Continue aggressive risk factor modification. -Recommend LDL less than 100. -Encouraged regular exercise and activity. - This note was dictated using auctionpoint software. If something is unclear, or does not make sense, please do not hesitate to contact our office at [phone] for clarification. Not available 05/07/2024 17:45:23 05/18/2024 05/18/2024 Patient Educatio n was printed, I have reviewed the Past Medical, Family, and Social Histories along with ROS and all orders in today's record, and have noted any changes. Medications, charts and records reviewed in full today. - blood pressure 130/84, heart rate 92 on examination, weight 317 lb. Oxygen saturation 98% on room air. - LAST ECHO: 11/2023 reveals normal LV chamber size, thickness, and global LV systolic function. LVEF 60% to 65%. Normal mitral valve leaflets with trace mitral regurgitation. Normal LV diastolic filling pattern. LAST ISCHEMIC EVAL: 09/2023 revealed a normal perfusion imaging study with normal LVEF of 73%. No scintigraphic evidence of ischemia. LAST HEART CATH: 03/2024 revealed normal coronary arteries with mild elevation in LVEDP and pulmonary capillary wedge pressures signifying mild pulmonary hypertension. Normal LVEF. PAST LHC: 03/26/2018 LHC and RHC. Normal coronary arteries. PAST LHC: 02/24/2015. CTA chest with PE protocol: 10/2023 revealed no evidence of pulmonary embolism on this exam. Mild bibasilar atelectasis noted as well as postoperative changes consistent with a cholecystectomy. - Plan: Start prednisone 40 mg daily for five days. Laboratory studies. Discontinue Entresto. Start isosorbide and losartan as before. Follow-up in 6 to 8 weeks. - -Continue other current medications. -Continue aggressive risk factor modification. -Recommend LDL less than 100. -Encouraged regular exercise and activity. - This note was dictated using auctionpoint software. If something is unclear, or does not make sense, please do not hesitate to contact our office at [phone] for clarification. Not available 05/18/2024 12:01:25 2024 2024 Patient Educatio n was printed, I have reviewed the Past Medical, Family, and Social Histories along with ROS and all orders in today's record, and have noted any changes. Medications, charts and records reviewed in full today. - blood pressure 132/82, heart rate 74, weight 310 lb. This is decreased of 7 lb since last visit. Oxygen saturation 99% on room air. - LAST ECHO: 11/2023 reveals normal LV chamber size, thickness, and global LV systolic function. LVEF 60% to 65%. Normal mitral valve leaflets with trace mitral regurgitation. Normal LV diastolic filling pattern. LAST ISCHEMIC EVAL: 09/2023 revealed a normal perfusion imaging study with normal LVEF of 73%. No scintigraphic evidence of ischemia. LAST HEART CATH: 03/2024 revealed normal coronary arteries with mild elevation in LVEDP and pulmonary capillary wedge pressures signifying mild pulmonary hypertension. Normal LVEF. PAST LHC: 03/26/2018 LHC and RHC. Normal coronary arteries. PAST [facility]: 02/24/2015. CTA chest with PE protocol: 10/2023 revealed no evidence of pulmonary embolism on this exam. Mild bibasilar atelectasis noted as well as postoperative changes consistent with a cholecystectomy. - Plan: Reviewed laboratory studies. Discussed risk factor modification. Recommend holding Eliquis for 48 hours for bleeding or bruising. Recommend holding Plavix for 5 to 7 days for bleeding or bruising as needed. Discussed fall precautions. Recommend heart healthy diet and exercise as tolerated. Discussed risk factor modification. EKG at follow-up. Follow-up in six months. Total service time 33 minutes. - -Continue other current medications. -Continue aggressive risk factor modification. -Recommend LDL less than 100. -Encouraged regular exercise and activity. - This note was dictated using auctionpoint software. If something is unclear, or does not make sense, please do not hesitate to contact our office at [phone] for clarification. Not available 2024 17:54:22 Plan of Treatment Reminders Order Date Submit Date Provider Last Modified By Organization Details Last Modified Time Details Appointments None recorded. Lab CBC w/ auto diff [email or web address] (Registration ), [address] [place] [address] , [place], [address], 4 12:24:46 CMP, serum or plasma [address] (Registration ), [address] [place] [address] [place], [address], 4 12:24:57 magnesium, serum or plasma [address] (Registration ), [address] [place] [address] , [place], [address], 4 12:25:07 CBC w/ auto diff 2023 024 [email or web address] 2 [facility] (Lab), [address] [place], [place] [address], [place], [address], 4 08:12:44 CMP, serum or plasma 2023 024 [email or web address] 2 [facility] (Lab), [facility], [place], [address], 4 08:13:13 lipid panel, serum 2023 024 [email or web address] 2 [facility] (Lab), [address] [place] [address] [address], [place], [address], 4 08:13:[address] referral 2023 024 axel Owens Jr, DO, [address] [facility] [address], [place], [address], 4 07:31:58 Procedures None recorded. Surgeries combined right and left heart catheteriza tion (SURG) 2023 024 [email or web address] [address] [facility], [address], [place], [address], 4 12:13:00 Imaging electrocard iogram 2023 024 [email or web address] [facility], [address] [place] [address] Dr Hut[address], [place], [address], 4 09:15:20 Medication Orders prednisone 20 mg tablet [address], [address], 4 13:02:45 isosorbide mononitrate ER 30 mg tablet,exte nded release 24 hr [address], [address], 4 12:01:14 Entresto 49 mg-51 mg tablet [address], [address], 4 13:01:35 Trelegy Ellipta 200 mcg-62.5 mcg-25 mcg powder for inhalation [address], [address], 4 17:47:41 isosorbide mononitrate ER 30 mg tablet,exte nded release 24 hr [address], [address], 4 07:40:39 torsemide 100 mg tablet [address], [address], 4 17:33:10 spironolact one 25 mg tablet 2023 024 [facility], [address] [place] [address], [place], [address], 17:33:10 Patient TargetsNo targets recorded. Patient InstructionsNo instructions recorded. 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 Referring Physician: Wilmar Oden, Cardiology, Encounter Date: 12/16/2023 Results Created Date Observation Date Name Description Value Unit Range Abnormal Flag Note LastModifiedBy Organization Detail LastModifiedTime 11/25/19 24 10/03/2023 nucle ar stres s test No observ ation record ed. [facility] [address], [place], [address], 12/16/2023 17:35:15 11/25/19 24 11/25/2023 US, echoc ardio gram, trans thora cic, compl ete, w/ color flow No observ ation record ed. [email or web address] [place] (Centralized Scheduling) [facility] [address], [place], [address], 12/16/2023 17:35:05 02/11/20 elect rocar diogr am No observ ation record ed. CHADD Miranda [address], [place], [address], 02/11/2024 08:48:02 02/11/20 elect rocar diogr am No observ ation record ed. CHADD Miranda [address], [place], [address], 02/11/2024 08:55:51 04/01/20 24 03/31/2024 elect rocar diogr am No observ ation record ed. [email or web address] Not Available 2023 15:03:53 Result Notes None recorded. Problems Name Problem SNOMED Code Status Onset Date Resolution Date Notes Provider Name and Address Organization Details Recorded Time Tight chest 73984788 Active 023 Shahriar Zambrano MD [address] [place] [address],[address], [place], [address], [place] - [facility] - [place] & [place] 3 09:16:50 Peripheral vascular disease 794437942 Active 023 Shahriar Zambrano MD [address] [place] [address],[address] [facility], [place], [address], [place] [facility] - [place] 3 09:17:02 Dyspnea on exertion 84636300 Active 023 Shahriar Zambrano MD [address] [place] [address],[address], [place], [address], [place] [facility] [place] 3 09:17:07 Morbid obesity 082532428 Active 023 Shahriar Zambrano MD [address] [place] [address],[address], [place], [address], [place] [facility] - [place] 3 09:23:51 Edema 231119635 Active 023 Shahriar Zambrano MD [address] [place] [address],[address], [place], [address], [place] [facility] - [place] [facility] [place] 3 09:24:02 Problem Notes None recorded. Procedures Surgical History Date Name Laterality Status Provider Name and Address Organization Details Recorded Time 09/09/19 23 Other completed Paloma Cleveland [place] - [facility] - [place] 08/20/2023 08:49:54 09/09/19 23 Vascular Surgery completed Paloma Cleveland [place] [facility] [place] 08/20/2023 08:49:54 03/26/20 18 Cardiac Catheterization completed Kira LARKIN - [facility] - [place] [facility] [place] 08/13/2023 09:33:18 09/09/19 18 Vascular Surgery completed Paloma [place] [facility] [place] 08/20/2023 08:49:54 09/09/19 16 Other completed Paloma [place] [facility] [place] 08/20/2023 08:49:54 02/25/20 15 Cardiac Catheterization completed Kira Alfredo [place] - [facility] - [place] 08/13/2023 09:41:54 07/02/20 13 Cardiac Catheterization completed Kira LARKIN - [facility] - [place] [facility] [place] 08/13/2023 09:42:28 09/09/19 01 Other completed Paloma Cleveland [place] - [facility] [place] 08/20/2023 08:49:54 09/09/18 97 Breast Surgery completed Paloma LARKIN - [facility] - [place] [facility] [place] 08/20/2023 08:49:55 Knee arthroscopy/surgery completed Paloma LARKIN - [facility] - [place] [facility] [place] 08/20/2023 08:56:29 Stent completed Paloma LARKIN - [facility] [place] [facility] [place] 08/20/2023 08:56:54 Imaging Results None recorded. Procedure Notes None recorded. Medical Equipment None Reported. Allergies No known drug allergies Medications Name Sig Start Date Stop Date Status Note LastModified by Organization Details LastModified Time furosemide 40 mg tablet TAKE ONE TABLET BY MOUTH EVERY DAY 10/17 completed Not Available Not Available Not Available doxycycline hyclate 100 mg capsule TAKE ONE (1) CAPSULE TWICE A DAY BY ORAL ROUTE FOR 7 DAYS, FOR TICK BITE. active Not Available Not Available No t Available ipratropium 0.5 mg-albutero l 3 mg (2.5 mg base)/3 mL nebulizatio n soln INHALE CONTENTS OF ONE (1) VIAL FOUR (4) TIMES DAILY NEEDED active Not Available Not Available No t Available torsemide 20 mg tablet TAKE 2 TABLETS BY MOUTH EVERY DAY 12/15 completed Not Available Not Available Not Available albuterol sulfate 2.5 mg/3 mL (0.083 %) solution for nebulizatio n INHALE THREE (3) ML THREE (3) TIMES A DAY BY NEBULIZAT ION ROUTE NEEDED. 02/10 completed Not Available Not Available Not Available oxybutynin chloride ER 10 mg tablet,exte nded release 24 hr TAKE ONE (1) TABLET BY MOUTH EVERY DAY active Not Available Not Available No t Available meloxicam 15 mg tablet TAKE ONE (1) TABLET BY MOUTH DAILY. 08/20 completed Not Available Not Available Not Available prednisone 20 mg tablet TAKE TWO (2) TABLETS EVERY DAY BY ORAL ROUTE FOR FIVE (5) DAYS. 07/21 completed Not Available Not Available Not Available isosorbide mononitrate ER 30 mg tablet,exte nded release 24 hr TAKE ONE (1) TABLET BY MOUTH EVERY DAY active Not Available Not Available No t Available potassium chloride ER 10 mEq tablet,exte nded release TAKE ONE (1) TABLET BY MOUTH EVERY DAY active Not Available Not Available No t Available clopidogrel 75 mg tablet TAKE ONE (1) TABLET BY MOUTH EVERY DAY active Not Available Not Available No t Available aspirin 81 mg tablet,dania yed release TAKE ONE TABLET BY MOUTH EVERY DAY 08/20 completed Not Available Not Available Not Available tramadol 50 mg tablet TAKE ONE (1) TABLET BY MOUTH EVERY 8 HOURS NEEDED FOR PAIN. 08/20 completed Not Available Not Available Not Available spironolact one 25 mg tablet TAKE ONE (1) TABLET EVERY DAY BY ORAL ROUTE FOR 30 DAYS. active Not Available Not Available No t Available estradiol 1 mg tablet TAKE ONE (1) TABLET BY MOUTH EVERY DAY DIRECTED active Not Available Not Available No t Available torsemide 100 mg tablet TAKE ONE HALF (1/2) TABLET BY MOUTH EVERY DAY active Not Available Not Available No t Available cephalexin 500 mg capsule TAKE 1 CAPSULE BY MOUTH TWICE DAILY FOR 7 DAYS 08/20 completed Not Available Not Available Not Available pantoprazol e 40 mg tablet,dania yed release TAKE ONE (1) TABLET BY MOUTH EVERY DAY active Not Available Not Available No t Available promethazin e 25 mg tablet TAKE ONE (1) TABLET BY MOUTH EVERY SIX (6) HOURS NEEDED FOR NAUSEA FOR UP TO 20 DOSES. 10/17 completed Not Available Not Available Not Available nitroglycer in 0.4 mg sublingual tablet DISSOLVE ONE (1) TABLET UNDER TONGUE EVERY FIVE (5) MINUTES NEEDED FOR CHEST PAIN active Not Available Not Available No t Available docusate sodium 100 mg capsule TAKE ONE CAPSULE THREE TIMES A DAY WHILE ON PAIN MEDS 08/20 completed Not Available Not Available Not Available montelukast 10 mg tablet TAKE ONE (1) TABLET BY MOUTH NIGHTLY active Not Available Not Available No t Available gabapentin 100 mg capsule Take 1 capsule twice a day by oral route as directed. 02/10 completed Not Available Not Available Not Available metoprolol succinate ER 25 mg tablet,exte nded release 24 hr TAKE 1 TABLET BY MOUTH EVERY DAY 08/20 completed Not Available Not Available Not Available ergocalcife rol (vitamin D2) 1,250 mcg (50,000 unit) capsule TAKE ONE (1) CAPSULE BY MOUTH EVERY WEEK active Not Available Not Available No t Available albuterol sulfate HFA 90 mcg/actuati on aerosol inhaler INHALE TWO (2) PUFFS EVERY FOUR (4) HOURS BY INHALATIO N ROUTE NEEDED. active Not Available Not Available No t Available losartan 50 mg-hydrochl orothiazide 12.5 mg tablet TAKE ONE (1) TABLET BY MOUTH EVERY DAY active Not Available Not Available No t Available losartan 100 mg tablet TAKE ONE (1) TABLET EVERY DAY BY ORAL ROUTE FOR 90 DAYS. 12/15 completed Not Available Not Available Not Available fluticasone propionate 50 mcg/actuati on nasal spray,suspe nsion SPRAY ONE (1) SPRAY EVERY DAY BY INTRANASA L ROUTE. active Not Available Not Available No t Available sertraline 50 mg tablet TAKE ONE (1) TABLET BY MOUTH EVERY DAY active Not Available Not Available No t Available imipramine 25 mg tablet Take 1 tablet every day by oral route at bedtime. 02/10 completed Not Available Not Available Not Available oxycodone 5 mg tablet TAKE ONE (1) TABLET BY MOUTH EVERY FOUR (4) HOURS NEEDED FOR MAJOR SURGERY/T RAUMA (G89.18) (OR TRAMADOL, NOT BOTH) FOR UP TO 30 DOSES. 10/17 completed Not Available Not Available Not Available Premarin 0.625 mg/gram vaginal cream INSERT 0.5 APPLICATO RSFUL BY VAGINAL ROUTE NIGHTLY FOR TWO (2) WEEKS THEN TWICE WEEKLY AFTER THAT active Not Available Not Available No t Available albuterol sulfate concentrate 2.5 mg/0.5 mL solution for nebulizatio n Inhale 0.5 mL 3 times a day by nebulizat ion route as needed. 10/17 completed Not Available Not Available Not Available Eliquis 5 mg tablet TAKE ONE (1) TABLET BY MOUTH TWICE DAILY active Not Available Not Available No t Available ProAir RespiClick 90 mcg/actuati on breath activated Inhale 2 puffs every 4 hours by inhalatio n route as needed. 02/10 completed Not Available Not Available Not Available Entresto 49 mg-51 mg tablet Take 1 tablet twice a day by oral route for 30 days. 05/18 completed Not Available Not Available Not Available Trelegy Ellipta 100 mcg-62.5 mcg-25 mcg powder for inhalation INHALE ONE (1) PUFF EVERY DAY BY INHALATIO N ROUTE FOR 30 DAYS. 07/21 completed Not Available Not Available Not Available Eliquis DVT-PE Treatment 30-Day Starter 5 mg (74 tablets) in dose pack TAKE ONE (1) STARTR PACKET BY ORAL ROUTE DIRECTED. 08/20 completed Not Available Not Available Not Available Trelegy Ellipta 200 mcg-62.5 mcg-25 mcg powder for inhalation INHALE ONE (1) PUFF EVERY DAY BY INHALATIO N ROUTE. active Not Available Not Available No t Available Vitals Date Recorded Body height Provider Name an d Address Organization Details Last Updated DateTime 12/16/2023 167.64 cm Stacie Holt [place] - [facility] 12/16/2023 10:27:49 Date Recorded Body mass index (BMI) Body weight Oxygen saturation Oxygen saturation in Arterial blood by Pulse oximetry Heart rate Systolic blood pressure Diastolic blood pressure Provider Name and Address Organization Details Last Updated DateTime 4 53.3 kg/m2 084324. 48 g 100 % 100 % 75 /min 130 mm[Hg] 90 mm[Hg] Paloma Cleveland [place] - [facility] & [place] 4 10:41:42 Date Recorded Body height Body mass index (BMI) Body weight Oxygen saturation Oxygen saturation in Arterial blood by Pulse oximetry Heart rate Systolic blood pressure Diastolic blood pressure Provider Name and Address Organization Details Last Updated DateTime 4 167.64 cm 52.1 kg/m2 908133. 34 g 98 % 98 % 70 /min 118 mm[Hg] 84 mm[Hg] Stacie mccall [place] - [facility] & [place] 08:51:56 Date Recorded Body height Body mass index (BMI) Body weight Oxygen saturation Oxygen saturation in Arterial blood by Pulse oximetry Heart rate Systolic blood pressure Diastolic blood pressure Provider Name and Address Organization Details Last Updated DateTime 4 167.64 cm 51.4 kg/m2 717810. 09 g 97 % 97 % 73 /min 138 mm[Hg] 88 mm[Hg] Jacquelyn Marte [facility] & [place] 4 13:15:12 Date Recorded Body height Body mass index (BMI) Body weight Oxygen saturation Oxygen saturation in Arterial blood by Pulse oximetry Heart rate Systolic blood pressure Diastolic blood pressure Provider Name and Address Organization Details Last Updated DateTime 4 167.64 cm 51.2 kg/m2 203680. 78 g 98 % 98 % 103 /min 130 mm[Hg] 84 mm[Hg] Stacie Aby mccall [facility] & [place] 4 11:37:24 Date Recorded Body height Body mass index (BMI) Body weight Oxygen saturation Oxygen saturation in Arterial blood by Pulse oximetry Heart rate Systolic blood pressure Diastolic blood pressure Provider Name and Address Organization Details Last Updated DateTime 4 167.64 cm 50 kg/m2 358254. 63 g 99 % 99 % 74 /min 132 mm[Hg] 82 mm[Hg] Norma Mancia [facility] [place] 4 12:08:05 Social History Question Answer Notes LastModified by Organizat ion Details LastModified Time Tobacco Smoking Status Former Smoker Paloma santana, [facility] [place] 08/20/2023 08:49:49 When Did You Quit Smoking? 16+yearssinc elastcigaret te plowe10 Information not available 10/17/2023 What Was The Date Of Your Most Recent Tobacco Screening? 08/14/2023 Information not available 08/20/2023 Are You Passively Exposed To Smoke? Yes Information not available 08/20/2023 How Much Tobacco Do You Smoke? 0.5 PPD Information not available 08/20/2023 How Many Years Have You Smoked Tobacco? 1 Information not available 08/20/2023 Sex: Female Functional Status Question Answer Note LastModified by Organizat ion Details LastModified Time Do you use any illicit or recreational drugs? No Information not available 08/20/2023 What is your level of alcohol consumption? None Information not available 08/20/2023 What is your exercise level? None Information not available 08/20/2023 Mental Status None recorded. Family History Relationship Description Onset Age of this Age Resolved Age Notes LastModified by Organization Details LastModified Time Mother Chronic obstructive pulmonary disease pt. added direct ly (08/14) API-13 Not available 08/14/2023 11:57:54 Mother Disorder of endocrine system pt. added direct ly (08/14) API-13 Not available 08/14/2023 11:58:05 Mother Heart disease pt. added direct ly (08/14) API-13 Not available 08/14/2023 11:58:46 Mother Hypertensive disorder pt. added direct ly (08/14) API-13 Not available 08/14/2023 11:58:59 Mother Cerebrovascu lar accident pt. added direct ly (08/14) API-13 Not available 08/14/2023 11:59:44 Mother Tuberculosis pt. added direct ly (08/14) API-13 Not available 08/14/2023 12:00:00 Father Myocardial infarction pt. added direct ly (08/14) API-13 Not available 08/14/2023 11:58:22 Father Heart disease pt. added direct ly (08/14) API-13 Not available 08/14/2023 11:58:46 Father Hypertensive disorder pt. added direct ly (08/14) API-13 Not available 08/14/2023 11:58:59 Brother Heart disease pt. added direct ly (08/14) API-13 Not available 08/14/2023 11:58:46 Maternal Grandmother Disorder of endocrine system pt. added direct ly (08/14) API-13 Not available 08/14/2023 11:59:32 Maternal Grandfather Disorder of endocrine system pt. added direct ly (08/14) API-13 Not available 08/14/2023 11:59:32 Medical History Condition Response Swelling Y Peripheral Vascular Disease Y Chest Pain Y Shortness of Breath Y GERD/Reflux Y Congestive Heart Failure (CHF) Y Deep Vein Thrombosis Y Hypertension Y Asthma Y Gynecological HistoryNo gynecological history recorded. Obstetrics History GPAL:G 0 P 0 0 0 0 Past Encounters Encounter ID Performer Location Encounter Start Date Encounter Closed Date Diagnosis/Indication Diagnosis SNOMED-CT Code Diagnosis ICD10 Code Diagnosis Note [id number] Shahriar Zambrano MD [address] [place] [address] 08/20/2023 08:38:30 08/20/2023 09:18:52 Essential hypertension 08165806 I10 Tight chest 43736048 R07 .89 History of deep vein thrombosis 118065655 Z86.718 Peripheral vascular disease 835910228 I73.9 Dyspnea on exertion 6084 5006 R06.09 Morbid obesity 795954573 E66.01 Edema 485795058 R60.9 [id number] WILMAR ODEN NP, S [address] [place] [address] 10/17/2023 09:54:11 10/17/2023 10:50:05 Dyspnea on exertion 57496502 R06.09 Essential hypertension 27135552 I10 History of deep vein thrombosis 947967384 Z86.718 Peripheral vascular disease 493325673 I73.9 Morbid obesity 455695086 E66.01 Edema 063710321 R60.9 [id number] WILMAR ODEN NP, S [address] [place] [address] 12/16/2023 09:57:05 12/16/2023 11:33:31 Essential hypertension 34608710 I10 History of deep vein thrombosis 956608120 Z86.718 Peripheral vascular disease 257487358 I73.9 Morbid obesity 049917953 E66.01 Edema 735867723 R60.9 Dyspnea on exertion 6084 5006 R06.09 [id number] WILMAR ODEN NP, S [address] [place] [address] 02/11/2024 08:18:06 02/11/2024 09:14:20 Progressive angina 590994484 I20.0 Essential hypertension 16204768 I10 History of deep vein thrombosis 868753174 Z86.718 Peripheral vascular disease 927348000 I73.9 Morbid obesity 621471980 E66.01 Edema 255150888 R60.9 Dyspnea on exertion 6084 5006 R06.09 [id number] WILMAR ODEN NP, S [address] BARKER [address] [place], [place] [address] 05/07/2024 12:55:01 05/07/2024 13:30:47 Essential hypertension 79287543 I10 History of deep vein thrombosis 262960761 Z86.718 Peripheral vascular disease 819084912 I73.9 Morbid obesity 271516747 E66.01 Edema 400030901 R60.9 Pulmonary hypertension 11996594 I27.20 Chronic di astolic heart failure 761058072 I50.32 Chronic ob structive pulmonary disease 02475747 J44.9 [id number] WILMAR ODEN NP, S [address] BARKER [address] [place] [address] 6 05/18/2024 11:25:04 05/18/2024 12:03:05 Edema 644960668 R60.9 Essential hypertension 46824139 I10 History of deep vein thrombosis 277591329 Z86.718 Peripheral vascular disease 139218442 I73.9 Morbid obesity 043537071 E66.01 Pulmonary hypertension 71360647 I27.20 Chronic di astolic heart failure 151532880 I50.32 Chronic ob structive pulmonary disease 13941475 J44.9 Anterior c hest wall pain 350169942 R07.89 [id number] WILMAR ODEN NP, S [address] BARKER [address] [place] [id number] 2024 12:01:04 2024 12:28:48 Edema 193014363 R60.9 Essential hypertension 09444193 I10 History of deep vein thrombosis 218996253 Z86.718 Peripheral vascular disease 815884984 I73.9 Morbid obesity 341012330 E66.01 Pulmonary hypertension 49016951 I27.20 Chronic di astolic heart failure 331183498 I50.32 Chronic ob structive pulmonary disease 37345048 J44.9 Health Concerns Section Related Observation LastModified by Organization Detai ls LastModified Time None Recorded Concern Status LastModified by Organization Details LastModified Time None Recorded Advance Directives Directive None Recorded Payers Insurance Date Sequence Insurance Name Policy Number Policy Read Covered Member ID Read Member ID Guarantor Name 07/16/2024 1 [employer] Amy Crews [id number] Aym Crews 08/20/2023 SLIDING FEE SCHEDULE - DISCOUNT Amy Crews 01/14/2025 1 [employer] - [employer] OF [facility] (HMO) Amy Crews [id number] Amy Crews 07/16/2024 1 [employer] - [employer] (PPO) Amy Crews [id number] Amy Crews 07/16/2024 1 [employer] - [facility] - [employer] - [facility] (PPO) Amy Crews [id number] Amy Crews Notes Date Note Type Note Provider Name and Address Organization Details Recorded Time 4 text/html Amy is a 53-year-old female who presents today in follow-up. The patient has a history significant for hypertension, left ventricular hypertrophy, deep vein thrombosis, and peripheral vascular disease. The patient follows peripheral vascular disease with a vascular surgeon at [facility]. Since our last visit, the patient continues to have lower extremity swelling, that is persistent, worsens with dependency and improves with elevation and diuretic therapy. The patient's swelling incompletely resolves intermittently. The patient continues to have intermittent, primarily exertional shortness of breath improves with rest. This is moderate in severity at worst. The patient also reports two-pillow orthopnea. Echocardiogram since last visit revealed normal LVEF with normal diastolic LV filling pattern. WILMAR ODEN NP, S [address] [facility],[address], [place], [address], [place] - [facility] [place] & [place] 12/16/2023 17:35:44 4 text/html Amy is a 53-year-old female who presents today in follow-up. The patient has a history significant for hypertension, left ventricular hypertrophy, deep vein thrombosis, and peripheral vascular disease. The patient follows peripheral vascular disease with a vascular surgeon at [facility]. Since our last visit, the patient reports that she is continued to have profound shortness of breath, with very minimal exertion. The patient also reports orthopnea and intermittent, primarily dependent lower extremity swelling. The patient reports that over the last two months she has had intermittent, progressive, substernal chest pressure and tightness which has worsened in severity, frequency, and duration. The patient now has severe chest pain several times per week lasting several minutes with minimal to no exertion. This is described as a substernal tightness. WILMAR ODEN NP, S [address] [place] [address],[address], [place], [address], [facility] & [place] 02/11/2024 09:26:04 4 text/html Amy is a 53-year-old female who presents today in follow-up. The patient has a history significant for hypertension, left ventricular hypertrophy, deep vein thrombosis, and peripheral vascular disease. The patient follows peripheral vascular disease with a vascular surgeon at [facility]. Since our last visit, the patient underwent left heart catheterization revealed normal coronary arteries with an elevation of LVEDP and pulmonary capillary wedge pressure consistent with mild pulmonary hypertension. Groin nontender, healing well. The patient continues to have some intermittent, primarily exertional shortness of breath that is [id number] in nature, and consistent with pulmonary hypertension. 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 No other complaints or concerns. WILMAR ODEN NP, S [address] [place] [address],[address], [place], [address], [facility] - [facility] & [place] 05/07/2024 17:49:10 4 text/html Amy is a 53-year-old female who presents today in follow-up. The patient has a history significant for hypertension, left ventricular hypertrophy, deep vein thrombosis, and peripheral vascular disease. The patient follows peripheral vascular disease with a vascular surgeon at [facility]. At our last visit, we started the patient on Entresto after stopping the patient's losartan with hydrochlorothiazide and isosorbide. The patient took the Entresto for two days before developing significant nausea and vomiting as well as worsening shortness of breath, and dizziness. The patient's blood pressure was 107/60 on Entresto at her home. The patient reports that the shortness of breath and dizziness have improved as well has her blood pressure since stopping Entresto. The patient started back on her losartan with hydrochlorothiazide and isosorbide. The patient did stop her isosorbide after she ran out of medication earlier this week. The patient has some anterior chest wall pain worsened with palpation and deep breaths after retching during vomiting last week. This has improved to some degree although it has not resolved. The patient has no other complaints or concerns. WILMAR ODEN NP, S [address] [place] [address],[address], [place], [address], [facility] & [place] 05/18/2024 12:03:38 4 text/html Amy is a 54-year-old female who presents today in follow-up. The patient has a history significant for hypertension, left ventricular hypertrophy, deep vein thrombosis, and peripheral vascular disease. The patient follows peripheral vascular disease with a vascular surgeon at [facility] [place] [facility]. Since our last visit, the patient reports that she has been doing well. The patient did suffer a fall last week and had some bruising to her chin. No loss of consciousness. The patient reports that she stumbled in the dark coming back from her bathroom to bed. The patient lost her footing after stepping on or tripping on a air conditioning register. The patient denies any significant pain. The patient reports that otherwise she is doing well. No other complaints or concerns. WILMAR ODEN NP, S [address] [place] [address],[address], [place], [address] & [place] 2024 17:54:28 OBGyn Episode No OBEpisode recorded.
--- OUTSIDE RECORDS SUMMARY | 2025-02-25 09:34 | XMS_ITS | Encounter Summary ---
Author Organization [facility] 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 Name Role Phone Unavailable Primary Care Provider Unavailabl e Reason for Visit * Reason Comments Medication Refill Encounter Details Date Type Department Care Team (Late st Contact Info) Description 01/19/2025 Refill [facility] Vascular Surg Edg [address] [place] [address] Talon Sprague, DO [address] [facility] [address] [place], [place] [id number] Medication Refill Social History Tobacco Use Types [...] Refills Last Filled Start Date End Date losartan-hydrochlor othiazide (HYZAAR) 50-12.5 mg Oral Tablet TAKE ONE (1) TABLET BY MOUTH EVERY DAY 30 Tablet 1 01/19/2025 documented in this encounter Plan of Treatment Upcoming Encounters Date Type Department Care Team (Late Contact Info) Description 03/02/2025 2:30 PM EDT Office Visit [facility] Pulmonology [facility] [address] [address] Gustavo Anthony MD [address] [address] 04/13/2025 7:00 PM EDT Appointment [facility] [address] [place] [address] 05/24/2025 9:00 AM EDT Appointment [facility] [address] [place] [address] [address] [place] [address] Talon Sprague DO [address] [place] [address] [address] [place] [address] 05/24/2025 10:00 AM EDT Office Visit [facility] Vascular Surg Edg [address] [place] [address] [address] [place] [address] Jessika Franco APRN [address] [place] [address] [address] [place] [address] 06/28/2025 10:45 AM EDT Office Visit [facility] Sleep Medicine [address] [address] Mimi Padilla [facility] [address] [address] documented as of this encounter Visit Diagnoses Not on filedocumented in this encounter Discontinued Medications Medication Sig Discontinue Reason Start Date End Da te losartan-hydrochlorothia zide (HYZAAR) 50-12.5 mg Oral Tablet TAKE ONE (1) TABLET BY MOUTH EVERY DAY Reorder 11/19/2024 01/19/2025 losartan-hydrochlorothia zide (HYZAAR) 50-12.5 mg Oral Tablet TAKE ONE (1) TABLET BY MOUTH EVERY DAY Reorder 11/19/2024 01/19/2025 documented as of this encounter
--- OUTSIDE RECORDS SUMMARY | 2025-02-25 09:35 | XMS_ITS | Clinical Summary ---
Author Organization [facility] Address [address] [place] [address] [address] Phone Care Team Providers Care Buncher Operator Name Role Phone Unavailable Primary Care Provider Unavailabl e Allergies No known active allergies Medications estradiol (ESTRACE) 0.5 mg Oral Tablet Take 1 mg by mouth daily. 0 12/06/19 18 Active fUROsemide (LASIX) 20 mg Oral Tablet Take 20 mg by mouth daily. 0 11/18/19 18 Active omeprazole (PRILOSEC) 40 mg Oral Capsule, Delayed Release(E.C.) Take 40 mg by mouth daily. 0 11/19/19 18 Active albuterol (PROVENTIL) 2.5 mg /3 mL (0.083 %) Inhl Solution for Nebulization as needed. 0 12/03/19 18 Active PROAIR HFA 90 mcg/actuation Inhl HFA Aerosol Inhaler 1 Puff as needed. 0 12/03/19 18 Active ranitidine (ZANTAC) 150 mg Oral Capsule Take 150 mg by mouth nightly. Active imipramine (TOFRANIL) 25 mg Oral Tablet Take by mouth nightly. Active losartan (COZAAR) 100 mg Oral Tablet Take 100 mg by mouth daily. 12/30/19 21 Active NIFEdipine (PROCARDIA XL) 30 mg Oral Tablet Extended Rel 24 hrIndications:Ra ynaud's disease without gangrene Take 1 Tab by mouth daily. 30 Tab 3 01/24/20 21 Active Additional Information Patient not taking.Reason: Therapy Completed, Informant: Self/Patient, Reported on 12/28/2024 pantoprazole (PROTONIX) 40 mg Oral Tablet, Delayed Release (E.C.) Take 40 mg by mouth daily. 03/25/20 Active estradioL (ESTRACE) 1 mg Oral Tablet Take 1 mg by mouth daily. as directed 03/24/20 Active gabapentin (NEURONTIN) 100 mg Oral Capsule Take 100 mg by mouth as needed for Pain. Active sertraline (ZOLOFT) 50 mg Oral Tablet TAKE ONE (1) TABLET EVERY DAY BY ORAL ROUTE. 12/30/19 22 Active ergocalciferol (DRISDOL) 1,250 mcg (50,000 unit) Oral Capsule TAKE ONE (1) CAPSULE EVERY WEEK BY MOUTH 01/12/20 Active potassium chloride (KLOR-CON) 10 mEq Oral Tablet Sustained Release 03/29/20 22 Active metoprolol succinate (TOPROL-XL) 25 mg Oral Tablet Sustained Release 24 hr Take 25 mg by mouth daily. 10/18/19 23 Active apixaban (ELIQUIS) 5 mg Oral Tablet Take 5 mg by mouth 2 times daily. Active PREMARIN Vagl Cream INSERT 0.5 APPLICATORSFUL BY VAGINAL ROUTE NIGHTLY FOR TWO (2) WEEKS THEN TWICE WEEKLY AFTER THAT Active oxybutynin (DITROPAN-XL) 10 mg Oral Tablet Extended Rel 24 hr TAKE ONE (1) TABLET EVERY DAY BY ORAL ROUTE. Active torsemide (DEMADEX) 20 mg Oral Tablet Take 2 Tablets by mouth daily. Active fluticasone propionate (FLOVENT HFA) 110 mcg/actuation Inhl HFA Aerosol Inhaler Active albuterol-ipratr opium (DUO-NEB) 0.5 mg-3 mg(2.5 mg base)/3 mL Inhl Solution for Nebulization INHALE CONTENTS OF ONE (1) VIAL FOUR (4) TIMES DAILY NEEDED Active spironolactone (ALDACTONE) 25 mg Oral Tablet TAKE ONE (1) TABLET EVERY DAY BY ORAL ROUTE FOR 30 DAYS. Active isosorbide mononitrate (IMDUR) 30 mg Oral Tablet Sustained Release 24 hr 02/13/20 24 Active fluticasone propionate (FLONASE) 50 mcg/actuation Nasl [place], Suspension SPRAY ONE (1) SPRAY EVERY DAY BY INTRANASAL ROUTE. 02/18/20 24 Active torsemide (DEMADEX) 100 mg Oral Tablet TAKE 0.5 TABLETS EVERY DAY BY ORAL ROUTE FOR 30 DAYS. 12/17/19 24 Active fluticasone-umec lidin-vilanter (TRELEGY ELLIPTA) 200-62.5-25 mcg Inhl Disk with DeviceIndication s:Moderate persistent asthma without complication Inhale 1 Puff into the lungs daily. Active montelukast (SINGULAIR) 10 mg Oral TabletIndication s:Moderate persistent asthma without complication Take 1 Tablet by mouth nightly. 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 Former smoker-quit 1986 04/22/2023 Acute lateral meniscus tear of left knee 023 Overview (04/05/2023): Added automatically from request for surgery [id number] Raynaud's disease 04/14/2021 May-Thurner syndrome 02/15/2021 Morbid obesity with BMI of 40.0-44.9, adult 05/2019 Symptomatic varicose veins of both lower extremi ties 07/15/2018 Overview (07/15/2018): Added automatically from request for surgery [id number] 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 01/13/2018 Venous insufficiency of both lower extremities 0 01/13/2018 Pain in both lower extremities 01/13/2018 Gastroesophageal reflux disease 07/05/2016 Neuropathy 07/05/2016 Encounters Date Type Department Care Team Description 02/24/2025 Telephone [facility] [address] [place] [address] Maddie Dillon MA Referral 02/18/2025 Telephone [facility] Sleep Medicine [address] [phone] Tereso Mcgee MD Sleep Apnea 02/11/2025 10:45 AM EDT Office Visit [facility] Sleep Medicine [address] [phone] Tereso Mcgee MD Obstructive sleep apnea (Primary Dx); Former smoker; Morbid obesity with BMI of 40.0-44.9, adult (HCC); May-Thurner syndrome 02/08/2025 Travel 01/25/2025 7:00 PM EDT - 01/25/2025 11:59 PM EDT Hospital Encounter [facility] [address] [place] [phone] Morbid obesity (HCC); Obstructive sleep apnea; Gastroesophageal reflux disease with esophagitis, unspecified whether hemorrhage Discharge Disposition: Home or Self Care 01/19/2025 Refill [facility] Vascular Surg Edg [address] [facility] [address] [place] [phone] Talon Sprague DO Medication Refill 01/19/2025 Refill [facility] V[facility] Surg [facility] [address] [facility] [address] [place] [phone] Jessika Franco APRN Medication Refill 12/28/2024 1:30 PM EDT Office Visit [facility] Pulmonology [address] [phone] Karine Horne NP Moderate persistent asthma without complication (Primary Dx); [place] (obstructive sleep apnea) 12/25/2024 10:30 AM EDT Office Visit [facility] Sleep Medicine [address] [phone] Tereso Mcgee MD Obstructive sleep apnea (Primary Dx); Morbid obesity with BMI of 40.0-44.9, adult (HCC); Former smoker-quit 1985; May-Thurner syndrome; Morbid obesity (HCC); Gastroesophageal reflux disease with esophagitis, unspecified whether hemorrhage 12/25/2024 Travel 12/22/2024 Travel from Last 3 Months Surgical History Surgery Date Site/Laterality Comments HYSTERECTOMY 08/09/2016 - 09/08/201602/2016 BREAST SURGERY CHOLECYSTECTOMY 09/09/2000 - 09/08/2001 CARDIAC CATHETERIZATION x 2 COLONOSCOPY UPPER GASTROINTESTINAL ENDOSCOPY TUBAL LIGATION VARICOSE VEIN SURGERY 08/01/2018 Bilateral Bilateral Greater saphenous vein ablation and stab phlebectomies left x 6 and right x 13; Surgeon: Talon Sprague DO; Location: [facility]; Service: Vascular VARICOSE VEIN SURGERY 08/01/2018 Surgeon: Talon Sprague DO; Location: [facility]; Service: Vascular IR ULTRASOUND GUIDED VASCULA R ACCESS 02/15/2021 IR ULTRASOUND GUIDED VASCULAR ACCESS 02/15/2021 Talon Sprague DO [facility]TT IR IR ULTRASOUND GUIDED VASCULA R ACCESS 02/15/2021 IR ULTRASOUND GUIDED VASCULAR ACCESS 02/15/2021 Talon Sprague DO FTT IR KNEE ARTHROSCOPY 04/23/2023 Knee/Right RIGHT KNEE ARTHROSCOPY PARTIAL LATERAL MENISCECTOMY; Surgeon: Jaron Story MD; Location: [facility]; Service: Orthopedics IR ULTRASOUND GUIDED VASCULA R ACCESS 05/02/2023 IR ULTRASOUND GUIDED VASCULAR ACCESS 05/02/2023 Talon Sprague DO [facility] IR ULTRASOUND GUIDED VASCULA R ACCESS 03/19/2024 IR ULTRASOUND GUIDED VASCULAR ACCESS 03/19/2024 Talon Sprague DO [facility] IR SINUS SURGERY UVULOPALATOPHARYGOPLASTY Medical History Medical History Date Comments Arthritis Asthma GERD (gastroesophageal reflux disease) Hypertension Fibromyalgia Prediabetes Diabetes mellitus (HCC) Sleep apnea Blood circulation, collateral Family History Medical History Relation Name Comments Heart Disease Brother 1 Boris Nath Heart Disease Brother 2 Elia Nath Emphysema Father Dilshad Nath Heart Disease Father Dilshad Nath High Blood Pressure Father Dilshad Nath Diabetes Maternal Grandfather Mariabeulah Solorzano Diabetes Maternal Grandmother Elena Burrows jeanine Br east Arthritis Mother Luzmaria Nath Asthma Mother Luzmaria Nath Cancer Mother Luzmaria Nath Breast and lung s Diabetes Mother Luzmaria Nath Heart Disease Mother Luzmaria Nath High Blood Pressure Mother Luzmaria Nath Lung Cancer Mother Luzmaria Nath Stroke Mother Luzmaria Nath Cancer Paternal Grandmother Elena Solorzano Br east High Blood Pressure Sister 1 Chloe Zia Anesth Problems Neg Hx Relation Name Status Comments Brother 1 Boris Nath Alive Brother 2 Elia Nath Alive Brother 3 Father Dilshad Nath Maternal Grandfather Ciro Solorzano Maternal Grandmother Elena solorzano Mother Luzmaria Nath Paternal Grandmother Elena Solorzano Sister 1 Chloe Lizarraga Alive Sister 2 Alive Social History Tobacco Use Types Packs/Day Years [...] on file Sexual Orientation Not on file Obstetrics History Last Filed Vital Signs Vital Sign Reading Time Taken Comments Blood Pressure 106/70 12/28/2024 1:49 PM EDT Pulse 78 12/28/2024 1:49 PM EDT Temperature 36.6 C (97.9 F) 04/20/2024 11:32 AM EDT Respiratory Rate 20 03/19/2024 3:40 PM EDT Oxygen Saturation 98% 12/28/2024 1:49 PM EDT Inhaled Oxygen Concentration - - Weight 136.5 kg (301 lb) 12/28/2024 1:49 PM EDT Height 167.6 cm (5' 6 ) 12/28/2024 1:49 PM EDT Body Mass Index 48.58 12/28/2024 1:49 PM EDT Plan of Treatment Upcoming Encounters Date Type Department Care Team (Late st Contact Info) Description 03/02/2025 2:30 PM EDT Office Visit [facility] Pulmonology [facility] [address] [phone] Gustavo Anthony MD [address] [address] 04/13/2025 7:00 PM EDT Appointment [facility] Sleep Disorder [facility] [place] [address] [facility] [address] [place] [address] 05/24/2025 9:00 AM EDT Appointment [facility]ASCULAR [address] [place] [address] Talon Sprague DO [address] [place] [address] 05/24/2025 10:00 AM EDT Office Visit [facility] Vascular Surg Edg [address] [place] [address] Jessika Franco LIQUOR DEPARTMENT MANAGER [address] [place], [place] [phone] 06/28/2025 10:45 AM EDT Office Visit [facility] Sleep Medicine [facility] [address] [facility] [address] [place] [address] Mimi Padilla, LIQUOR DEPARTMENT MANAGER [address] [place], [place] [id number] Health Maintenance Due Date Last Done Comments Annual Wellness Exam 1971 Hepatitis B Vaccine (1 of 3 - 19+ 3-dose series) 1987 Pneumococcal Vaccine 50+ (1 of 2 - PCV) 1987 Cervical Cancer Screening 1989 Pap Smear 1989 HPV/Pap Cotest 1998 Colonoscopy 2013 FIT 2013 Sigmoidoscopy 2013 Virtual Colonography 2013 Zoster (1 of 2) 2018 COVID-19 Vaccine ( season) 2024 11/28/2022, 02/21/2022, 09/26/2020, Additional history exists Breast Cancer Screening 03/20/2025 03/20/2023 Influenza Vaccine (Season Ended) 2025 06/20/2018, 07/10/2017, 06/09/2016, Additional history exists DTaP/TDaP/Td (2 - Td or Tdap) 04/16/2027 04/16/2017 Cologuard 01/20/2028 01/19/2025, 11/07, 10/30/2019 Colon Cancer Screening 01/20/2028 Meningococcal B Vaccine Aged Out No l onger eligible based on patient's age to complete this topic Medical Devices Implanted Type Area Database Reporting Consultant Device Identifier Shelf Expiration Date Model / Serial / Lot Stent Abre Venous 20 X 80-02/15/2021 Implanted:Qty: 1 on 02/15/2021 by Talon Sprague, DO EV3 [id number] / / [id number] Stent Abre Venous 18 X 80-05/02/2023 Implanted:Qty: 1 on 05/02/2023 by Talon Sprague, DO EV3 [id number] / / [id number] Procedures Procedure Name Priority Date/Time Associated Diagnosis Comments POLYSOMNOGRAPHY 4 OR MORE PARAMETERS Routine 01/25/2025 9:52 AM EDT Morbid obesity (HCC) Obstructive sleep apnea Gastroesophageal reflux disease with esophagitis, unspecified whether hemorrhage POCT FENO Routine 12/28/2024 2:16 PM EDT Moderate persistent asthma without complication MM MAMMO DIGITAL NICHOLAS SCREEN BILAT Routine 03/20/2023 10:39 AM EDT Encounter for screening mammogram for malignant neoplasm of breast from Last 3 Months or Most Recently Relevant to Health Maintenance Results * POLYSOMNOGRAPHY 4 OR MORE PARAMETERS (01/25/2025 9:52 AM EDT) [facility] OVERALL RESULT [facility] DATE OF STUDY 01/25/2025 SE LAB Study Type Adult SE LAB PATIENT WEIGHT 301.0 SE LAB APNEA INDEX 4.4 [facility] Apnea Hypopnea Index 87.9 SE LAB RDI Index 87.9 [facility] Central Apnea Index 1.4 SE LAB REM AHI 91.0 [facility] Min O2 Saturation 76 [facility] RDI REM 91.0 SE LAB RDI nonREM 85.1 [facility] CPAP Device Name [facility] CPAP Pressure [facility] IPAP Pressure [facility] EPAP Pressure [facility] Auto Pressure Support SE LAB Supplemental O2 SE LAB Mask Type SE LAB Mask Size SE LAB APAP Range SE LAB Auto-IPAP Max SE LAB Auto-IPAP Min SE LAB Pressure Support SE LAB PAP Compliance % SE LAB Compliance Days SE LAB Residual AHI SE LAB PAP 90-95th Percentile SE LAB 01/25/2025 9:52 AM EDT us Tereso Mcgee MD SLEEP CENTER ORDERABLES Final Re sult [facility] [address] [place] [address] * POCT FENO (12/28/2024 2:16 PM EDT) ENTAS FENO 5 PPB SEP OFFICE 12/28/2024 2:16 PM EDT Karine Horne NP POINT OF CARE TEST ORDERABLE S Final Result Performing Organization Address City/[facility]/ZIP Co de Phone Number SEP OFFICE * MM MAMMO DIGITAL NICHOLAS SCREEN BILAT (03/20/2023 10:39 AM EDT) Anatomical Region Laterality Modality Breast Bilateral Mammography 03/26/2023 1:45 PM EDT Impressions 03/26/2023 1:45 PM EDT Negative ([id number]) ~ RECOMMENDATION: Routine screening mammogram in 1 year. ~ DISCLAIMER * Any patient with a palpable abnormality, unexplained by breast imaging, should be managed on clinical basis by the attending physician. * Breast imaging has a false negative rate of 15%. * The patient was notified by mail of the results of this examination. *The patient's information was entered into a reminder system with a target due date for the next mammogram, in accordance with the [employer] and the Society of Breast Imaging recommendations. Narrative 03/26/2023 1:45 PM EDT Procedure:MM MAMMO DIGITAL NICHOLAS SCREEN BILAT ~ Reason for exam: screening, asymptomatic. Z12.31-Encounter for screening mammogram for malignant neoplasm of [id number] ~ MM MAMMO DIGITAL NICHOLAS SCREEN BILAT Bilateral CC and MLO view(s) were taken. There are scattered fibroglandular densities. Prior study comparison: Compared with prior studies the most recent being outside study dated October, No mammographic evidence of malignancy. ~ Procedure Note Edilia Hollis MD - 03/26/2023 Procedure:MM MAMMO DIGITAL NICHOLAS SCREEN BILAT ~ Reason for exam: screening, asymptomatic. Z12.31-Encounter for screening mammogram for malignant neoplasm of [id number] ~ MM MAMMO DIGITAL NICHOLAS SCREEN BILAT Bilateral CC and MLO view(s) were taken. There are scattered fibroglandular densities. Prior study comparison: Compared with prior studies the most recentbeing outside study dated October, No mammographic evidence of malignancy. ~ IMPRESSION: Negative ([id number]) ~ RECOMMENDATION: Routine screening mammogram in 1 year. ~ DISCLAIMER * Any patient with a palpable abnormality, unexplained by breast imaging, should be managed on clinical basis by the attending physician. * Breast imaging has a false negative rate of 15%. * The patient was notified by mail of the results of this examination. *The patient's information was entered into a reminder system with atarget due date for the next mammogram, in accordance with the [employer] and the Society of Breast Imaging recommendations. Lorna Bustamante DO [facility] MAMMOGRAPHY ORDERA BLES Final Result from Last 3 Months or Most Recently Relevant to Health Maintenance Insurance [facility] * Guarantor: KHADRA CREWS Account Type Relation to Patient Date of Phone Billing Address [place] [employer] 1970 [address] [place] [address] [employer] [place] * Guarant[facility]: [id number] Account Type Relation to Patient Date of Phone Billing Address Workers Comp Employer [address] [place] [address] [employer] [id number] [place] [id number]
--- OUTSIDE RECORDS SUMMARY | 2025-02-25 09:35 | XMS_ITS | Data Portability ---
Author Organization [facility], [place] Address [address] [place] [address] Assessment Encounter Date Assessment Date Assessment LastModified by Organization Details LastModified Time 12/26/2023 12/26/2023 Assessment 1. Asthma *PFT (12/26/2023): mild restriction, +midflow obstruction, +ISAIAH response 2. Dyspnea 3. Former smoker x 1 year, quit 1988 4. Symptoms consistent with [place]: snoring, hypersomnia, napping and headaches Plan 1. 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 Oral swab specimen was obtained by the nurse and sent to the lab for testing. 2.Eventual HST once respiratory symptoms have improved 3.Order mouth piece and tubing for nebulizer (sent to [facility]) 4.Order RAST/CBC/IGE (patient to complete at PCP office) 5. RX Trelegy 100 mcg 1 puff daily. Rinse mouth after each use; I personally demonstrated use of the Ellipta inhaler during todays visit 6. Continue Albuterol HFA/nebs prn; discussed indications for use 7. Request Chest CT results from [facility] 8. RTO in 2 weeks, sooner if needed The patient underwent pulmonary function testing today to evaluate complaints of dyspnea. Results were discussed with the patient. Portions of this note may be dictated using voice recognition software and or use of a medical dermatologist. Variances in spelling and vocabulary are possible and unintentional. Not all errors are caught/corrected . Please notify the author if any discrepancies are noted or if the meaning of any statement is not clear. This is a summary discussion with the patient and in no way is intended to be a verbatum summation of everything discussed. We apologize for any inconvenience. Not available 12/26/2023 11:00:12 01/10/2024 01/10/2024 Assessment 1. Asthma *PFT (12/26/2023): mild restriction, +midflow obstruction, +ISAIAH response 2. Dyspnea 3. Former smoker x 1 year, quit 1988 4. Symptoms consistent with [place]: snoring, hypersomnia, napping and headaches Plan 1. Order A3PF-yeobssa 2.Patient declines HST 3.Order RAST/CBC/IGE (patient to complete at PCP office)-results pending 4. Hold Trelegy 100 mcg; Sample x 4 weeks Trelegy 200 mcg 1 puff daily. Rinse mouth after each use; If effective will send RX 5. Continue Albuterol HFA/nebs prn; discussed indications for use 6. RTO in 2 months, sooner if needed Portions of this note may be dictated using voice recognition software and or use of a medical dermatologist. Variances in spelling and vocabulary are possible and unintentional. Not all errors are caught/corrected . Please notify the author if any discrepancies are noted or if the meaning of any statement is not clear. This is a summary discussion with the patient and in no way is intended to be a verbatum summation of everything discussed. We apologize for any inconvenience. Not available 01/10/2024 14:50:12 Plan of Treatment Reminders Order Date Submit Date Provider Last Modified By Organization Details Last Modified Time Details Appointments None recorded. Lab respiratory allergen panel - [facility] - TEST FOR ZONE 5 2023 024 [email or web address] 6 [facility] - [address], [address], 4 10:37:14 CBC w/ diff 2023 024 6 [facility] - [address], [address], 4 14:39:55 Referral None recorded. Procedures None recorded. Surgeries None recorded. Imaging None recorded. Medication Orders Trelegy Ellipta 100 mcg-62.5 mcg-25 mcg powder for inhalation 2023 [email or web address], [address], 4 10:50:18 albuterol sulfate HFA 90 mcg/actuati on aerosol inhaler [address], [address], 4 10:08:51 Patient TargetsNo targets recorded. Patient InstructionsNo instructions recorded. Reason for Referral None Reported. Results Created Date Observation Date Name Description Value Unit Range Abnormal Flag Note LastModifiedBy Organization Detail LastModifiedTime 12/26/1912/26/2023 compl ete PFT w/ post [facility] hodil ator thomas metry * No observ ation record ed. [email or web address] Not Available 2023 11:20:59 01/01/20 24 10/14/2023 CT, scano gram, w/o contr ast No observ ation record ed. BARCODE Not Available 2023 10:59:34 Result Notes None recorded. Problems Name Problem SNOMED Code Status Onset Date Resolution Date Notes Provider Name and Address Organization Details Recorded Time Asthma 207573502 Active 024 Kaykay Anglin NP [address], [place], [address], [place] [facility] 4 09:59:59 Dyspnea 168890084 Active 024 Kaykay Anglin NP [address], [place], [address], [place] [facility] 4 11:00:18 Hypersomnia 67250359 Active 024 Kaykay Anglin NP [address], [place], [address], [place] [facility] 4 11:00:26 Problem Notes None recorded. Medical Equipment None Reported. Allergies No known drug allergies Medications Name Sig Start Date Stop Date Status Note LastModified by Organization Details LastModified Time furosemide 40 mg tablet TAKE ONE TABLET BY MOUTH EVERY DAY 12/25 completed Not Available Not Available Not Available doxycycline hyclate 100 mg capsule TAKE ONE (1) CAPSULE TWICE A DAY BY ORAL ROUTE FOR 14 DAYS, FOR TICK BITE. active Not Available Not Available No t Available torsemide 20 mg tablet TAKE 2 TABLETS BY MOUTH EVERY DAY 12/25 completed Not Available Not Available Not Available albuterol sulfate 2.5 mg/3 mL (0.083 %) solution for nebulizatio n INHALE THREE (3) ML THREE (3) TIMES A DAY BY NEBULIZAT ION ROUTE NEEDED. active Not Available Not Available No t Available oxybutynin chloride ER 10 mg tablet,exte nded release 24 hr TAKE ONE (1) TABLET EVERY DAY BY ORAL ROUTE FOR 90 DAYS. active Not Available Not Available No t Available meloxicam 15 mg tablet TAKE ONE (1) TABLET BY MOUTH DAILY. 12/25 completed Not Available Not Available Not Available potassium chloride ER 10 mEq tablet,exte nded release TAKE 1 TABLET BY MOUTH EVERY DAY active Not Available Not Available No t Available clopidogrel 75 mg tablet TAKE ONE (1) TABLET BY MOUTH DAILY. 12/25 completed Not Available Not Available Not Available aspirin 81 mg tablet,dania yed release TAKE ONE TABLET BY MOUTH EVERY DAY 12/25 completed Not Available Not Available Not Available spironolact one 25 mg tablet TAKE ONE (1) TABLET EVERY DAY BY ORAL ROUTE FOR 30 DAYS. active Not Available Not Available No t Available estradiol 1 mg tablet TAKE ONE (1) TABLET BY MOUTH EVERY DAY DIRECTED active Not Available Not Available No t Available torsemide 100 mg tablet TAKE 0.5 TABLETS EVERY DAY BY ORAL ROUTE FOR 30 DAYS. active Not Available Not Available No t Available cephalexin 500 mg capsule TAKE 1 CAPSULE BY MOUTH TWICE DAILY FOR 7 DAYS 12/25 completed Not Available Not Available Not Available pantoprazol e 40 mg tablet,dania yed release TAKE ONE (1) TABLET EVERY DAY BY ORAL ROUTE FOR 90 DAYS. active Not Available Not Available No t Available promethazin e 25 mg tablet TAKE ONE (1) TABLET BY MOUTH EVERY SIX (6) HOURS NEEDED FOR NAUSEA FOR UP TO 20 DOSES. 12/25 completed Not Available Not Available Not Available nitroglycer in 0.4 mg sublingual tablet DISSOLVE ONE (1) TABLET UNDER TONGUE EVERY FIVE (5) MINUTES NEEDED FOR CHEST PAIN active Not Available Not Available No t Available docusate sodium 100 mg capsule TAKE ONE CAPSULE THREE TIMES A DAY WHILE ON PAIN MEDS 12/25 completed Not Available Not Available Not Available ergocalcife rol (vitamin D2) 1,250 mcg (50,000 unit) capsule TAKE ONE (1) CAPSULE EVERY WEEK BY ORAL ROUTE FOR 90 DAYS. active Not Available Not Available No t Available albuterol sulfate HFA 90 mcg/actuati on aerosol inhaler INHALE TWO (2) PUFFS EVERY FOUR (4) HOURS BY INHALATIO N ROUTE NEEDED FOR 30 DAYS. active Not Available Not Available No t Available losartan 50 mg-hydrochl orothiazide 12.5 mg tablet TAKE ONE (1) TABLET BY MOUTH DAILY. 12/25 completed Not Available Not Available Not Available losartan 100 mg tablet TAKE ONE (1) TABLET EVERY DAY BY ORAL ROUTE FOR 90 DAYS. active Not Available Not Available No t Available fluticasone propionate 50 mcg/actuati on nasal spray,suspe nsion SPRAY ONE (1) SPRAY EVERY DAY BY INTRANASA L ROUTE. active Not Available Not Available No t Available sertraline 50 mg tablet TAKE ONE (1) TABLET EVERY DAY BY ORAL ROUTE FOR 90 DAYS. active Not Available Not Available No t Available oxycodone 5 mg tablet TAKE ONE (1) TABLET BY MOUTH EVERY FOUR (4) HOURS NEEDED FOR MAJOR SURGERY/T RAUMA (G89.18) (OR TRAMADOL, NOT BOTH) FOR UP TO 30 DOSES. 12/25 completed Not Available Not Available Not Available Premarin 0.625 mg/gram vaginal cream INSERT 0.5 APPLICATO RSFUL BY VAGINAL ROUTE NIGHTLY FOR TWO (2) WEEKS THEN TWICE WEEKLY AFTER THAT active Not Available Not Available No t Available Eliquis 5 mg tablet TAKE ONE (1) TABLET TWICE A DAY BY ORAL ROUTE FOR 30 DAYS. active Not Available Not Available No t Available Trelegy Ellipta 100 mcg-62.5 mcg-25 mcg powder for inhalation INHALE ONE (1) PUFF EVERY DAY BY INHALATIO N ROUTE FOR 30 DAYS. active Not Available Not Available No t Available Eliquis DVT-PE Treatment 30-Day Starter 5 mg (74 tablets) in dose pack TAKE ONE (1) STARTR PACKET BY ORAL ROUTE DIRECTED. 12/25 completed Not Available Not Available Not Available Vitals Date Recorded Body weight Oxygen saturation Oxygen saturation in Arterial blood by Pulse oximetry Heart rate Respiratory rate Body temperature Body mass index (BMI) Body height Systolic blood pressure Diastolic blood pressure Provider Name and Address Organization Details Last Updated DateTime 4 701246. 6 g 99 % 99 % 80 /min 18 /min 97.7 [degF] 50.8 kg/m2 167.64 cm 122 mm[Hg] 86 mm[Hg] thalia juarez [employer] [facility] 09:33:53 Date Recorded Body height Body mass index (BMI) Body weight Oxygen saturation Oxygen saturation in Arterial blood by Pulse oximetry Heart rate Respiratory rate Body temperature Systolic blood pressure Diastolic blood pressure Provider Name and Address Organization Details Last Updated DateTime 167.64 cm 50.8 kg/m2 703556. 6 g 99 % 99 % 82 /min 18 /min 98 [degF] 134 mm[Hg] 86 mm[Hg] thalia juarez [facility] 11:56:19 Social History Question Answer Notes LastModified by Organizat ion Details LastModified Time Tobacco Smoking Status Former Smoker thalia juarez [facility] [email or web address] 12/26/2023 09:40:52 Do You Have An Advance Directive? No Information not available 12/26/2023 Is Your Home Air Conditioned? Yes Information not available 12/26/2023 When Did You Quit Smoking? 14+yearssin mckenna durante Quit In 1988 Information not available 12/26/2023 Do You Have A Medical Power Of Transition Lead? No Information not available 12/26/2023 What Was The Date Of Your Most Recent Tobacco Screening? 01/10/2024 Information not available 01/10/2024 Do You Have Any Pets? Yes Cat Information not available 12/26/2023 What Is Your Relationship Status? Information not available 12/26/2023 At What Age Did You Start Smoking Tobacco? 18 Information not available 12/26/2023 Are There Any Smokers In Your House? Yes Information not available 12/26/2023 How Much Tobacco Do You Smoke? No Information not available 12/26/2023 How Many Years Have You Smoked Tobacco? 1 Information not available 12/26/2023 Have You Recently Traveled Abroad? No Information not available 12/26/2023 Are You Currently In School? No Information not available 12/26/2023 Sex: Unknown Functional Status Question Answer Note LastModified by Organizat ion Details LastModified Time Do you or have you ever used any other forms of tobacco or nicotine? No Information not available 12/26/2023 Are you currently employed? 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 Family History Relationship Description Onset Age of this Age Resolved Age Notes LastModified by Organization Details LastModified Time Father Myocardial infarction Not available 12/25 09:39:26 Mother Heart disease Not available 2023 09:39:43 Medical History No medical history recorded. Gynecological HistoryNo gynecological history recorded. Obstetrics History GPAL:G 0 P 0 0 0 0 Past Encounters Encounter ID Performer Location Encounter Start Date Encounter Closed Date Diagnosis/Indication Diagnosis SNOMED-CT Code Diagnosis ICD10 Code Diagnosis Note [id number] Kaykay Anglin NP [facility] [address] [place] [address] DR RODR[address]Z [address] [place] [id number] 12/26/2023 08:33:24 12/26/2023 10:18:22 Asthma 740087629 J45.909 Dyspnea 038866818 R06.00 [id number] Kaykay Anglin NP [facility] [address] [place] [address] DR RODRIGUEZ [address] [place] [phone] 01/10/2024 11:11:50 01/10/2024 16:00:51 Asthma 731141064 J45.909 Dyspnea 771641979 R06.00 Health Concerns Section Related Observation LastModified by Organization Detai ls LastModified Time None Recorded Concern Status LastModified by Organization Details LastModified Time None Recorded Advance Directives Directive N: Payers Insurance Date Sequence Insurance Name Policy Number Policy Read Covered Member ID Read Member ID Guarantor Name 05/25/2024 1 KURT - ERIKAR [facility] [place] [place] Amy Crews [id number] Amy Crews Notes Date Note Type Note Provider Name and Address Organization Details Recorded Time 12/26/2023 text/html This 53 year-old female, presents to the office as a new patient for the evaluation of shortness of breath. Reffered by [facility].Patient reports a history of asthma onset in high school. She reports her symptoms have increased in severity over the past 6 to 8 months.The patient complains today of a dry cough, shortness of breath with exertion, wheezing and fatigue, She is using Albuterol nebs once or twice a week, and her Albuterol inhaler twice a day. She has no maintenance inhaler. She is a former tobacco user 1/2 ppd x 1 year, quitting in 1988. Denies occupational exposure. Residential exposure to a cat. Family history is positive for asthma (mother, daughter and grandchildren). A focused sleep assessment is posiitve for snoring, hypersomnia, napping and headaches. Denies any fever, chills, nausea, vomiting, or diarrhea. Kaykay Anglin NP [address], [place], [address], [facility] 12/26/2023 11:01:15 01/10/2024 text/html This is a 53 year-old female who presents to the office today accompanied by her spouse for the ongoing management of asthma. Since last visit, patient was started on Doxycycline for a tick bite to her leg. Patient continues to use Trelegy 100 mcg 1 puff daily. She continues to complain of a dry cough, shortness of breath with exertion and fatigue. She does report her wheezing has slightly improved. She continues to use her albuterol inhaler twice daily and her albuterol nebs only twice since her last visit. Denies any fever, chills, nausea, vomiting, or diarrhea. Kaykay Anglin NP [address], [place], [address], [facility] 01/10/2024 14:50:43 OBGyn Episode No OBEpisode recorded.
--- OUTSIDE RECORDS SUMMARY | 2025-02-25 09:35 | XMS_ITS | Encounter Summary ---
Author Organization [place] [address] Care Team Providers Care Supply Chain Generalist Name Role Phone Unavailable Primary Care Provider Unavailabl e Reason for Visit * Reason Onset Date Comments Sleep Apnea 02/18/2025 Encounter Details Date Type Department Care Team (Late st Contact Info) Description 02/18/2025 Telephone [facility] Sleep Medicine [facility] [address] [address] Tereso Mcgee MD [address] [address] Sleep Apnea Social History Tobacco Use Types Packs/Day Years [...] on file documented as of this encounter Miscellaneous Notes * Telephone Encounter - Dinorah Celeste MA - 02/19/2025 8:13 AM EDT Its in appt notes so the lab knows to send it to [facility] after Titration study. * Telephone Encounter - Vaishnavi Francisco - 02/18/2025 12:58 PM EDT Pt wants to use [facility] for her cpap machine documented in this encounter Plan of Treatment Upcoming Encounters Date Type Department Care Team (Late st Contact Info) Description 03/02/2025 2:30 PM EDT Office Visit [facility] Pulmonology [facility] 651 [facility] [address] [place] [address] Gustavo Anthony MD [address] [address] 04/13/2025 7:00 PM EDT Appointment [facility] Sleep [facility] [address] [place] [address] 05/24/2025 9:00 AM EDT Appointment [facility] [address] [place] [address] Drive [address] [place] [address] Talon Sprague, DO [address] [place] [address] 05/24/2025 10:00 AM EDT Office Visit [facility] Vascular Surg [facility] [address] [place] [address] Drive [address] [place] [address] Jessika Franco APRN [address] [place], [place] [id number] 06/28/2025 10:45 AM EDT Office Visit [facility]P Sleep Medicine [facility] 651 [facility] [address] [place] [address] Mimi Padilla APRN 651 [facility] 19 [place], [place] [phone] documented as of this encounter Visit Diagnoses Not on filedocumented in this encounter
--- OUTSIDE RECORDS SUMMARY | 2025-02-25 09:35 | XMS_ITS | Encounter Summary ---
Author Organization [place] [address] Care Team Providers Care Commodity Manager Name Role Phone Unavailable Primary Care Provider Unavailabl e Reason for Visit * Reason Onset Date Comments Referral 02/24/2025 Encounter Details Date Type Department Care Team (Late st Contact Info) Description 02/24/2025 Telephone [facility] WEIGHT MGT [address] [address] Maddie Dillon MA Referral Social History Tobacco Use Types Packs/Day Years [...] encounter Miscellaneous Notes * Telephone Encounter - Maddie Dillon MA - 02/24/2025 9:19 AM EDT Called pt to follow up on referral. LVM reminding pt of [employer] message sent with instructions to view the online seminar and complete the new patient packet. documented in this encounter Plan of Treatment Upcoming Encounters Date Type Department Care Team (Late st Contact Info) Description 03/02/2025 2:30 PM EDT Office Visit SEP Pulmonology [facility] 651 [facility] 19 [place] [address] Gustavo Anthony MD 651 [facility] 19 [place] [address] 04/13/2025 7:00 PM EDT Appointment [facility] Sleep Disorder Center [address] [place] [address] 05/24/2025 9:00 AM EDT Appointment [facility] [address] [place] [address] [address] [place] [address] Talon Sprague DO [address] [place], [place] [id number] 05/24/2025 10:00 AM EDT Office Visit [facility] Vascular Surg [facility] 20 [facility] [address] [place] [address] Jessika Franco APRN [address] [place], [place] [id number] 06/28/2025 10:45 AM EDT Office Visit SEP Sleep Medicine [facility] [address] [address] Mimi Padilla APRN [address] [address] documented as of this encounter Visit Diagnoses Not on filedocumented in this encounter
--- OUTSIDE RECORDS SUMMARY | 2025-02-25 09:36 | XMS_ITS | Data Portability ---
Author Organization [facility] Address [address] [place] [address] Care Team Providers Care Digital Media Associate Name Role Phone MARYCHUY ODEN Referring Provider Assessment No assessment recorded. Plan of Treatment Reminders Order Date Submit Date Provider Last Modified By Organization Details Last Modified Time Details Appointments None recorded. Lab vitamin D, 25-hydroxy, total, serum 2024 025 [facility], [address], [place] [place], [place], [address], 5 14:13:59 cobalamin and folate panel, serum 2024 025 [facility], [address] [place], [place], [address], 5 14:13:58 iron + total iron-bindin g capacity (TIBC), serum 2024 025 [facility], [address], [place], [place], [address], 5 14:13:57 CBC w/ auto diff 2024 025 [facility], [address] [place], [place], [address], 5 14:13:56 CMP, serum or plasma 2024 025 [facility], [address] [place], [place], [address], 5 14:13:57 TSH + free T4, serum 2024 025 [facility], [address] [place], [place], [address], 5 14:13:55 HbA1c (hemoglobin A1c), blood 2024 025 [facility], [address], [place], [place], [address], 5 14:13:59 magnesium, serum or plasma 2024 025 [facility], [address] [place], [place], [address], 5 14:14:00 rapid SARS CoV + SARS CoV 2 Ag, QL IA, respiratory specimen 2024 025 [facility], [address] [place] [address], [address], 5 15:44:56 rapid flu (A+B) 2024 025 [facility], [address] [place] [address], [address], 5 15:44:57 rapid strep group A, throat 2024 025 [facility], [address] [place] [address], [address], 5 16:27:21 HbA1c (hemoglobin A1c), blood 2023 024 [facility], [address] [place] [address], [address], 4 14:39:39 Referral gastroenter ology surgery referral 2024 025 CHADD Valdez MD, [address], [place], [address], 5 14:42:40 Procedures None recorded. Surgeries None recorded. Imaging electrocard iogram 2024 025 [facility], [address] [facility], [place], [address], 5 09:46:41 XR, knee, 3 view 2023 024 CHADD Heaton (Centralized Scheduling), [facility] [address], [place], [address], 4 10:01:12 XR, shoulder, 2 or more view 2023 024 CHADD [place] (Centralized Scheduling), [facility] [address], [place], [address], 4 10:01:03 Medication Orders fluticasone propionate 50 mcg/actuati on nasal spray,suspe nsion 2024 025 [facility], [address] [place] [address], [address], 5 15:44:58 doxycycline hyclate 100 mg capsule 2024 025 [facility], [address] [place] [address], [address], 5 08:29:52 hydrocodone 5 mg-acetamin ophen 325 mg tablet [address], [place], [address], 5 14:48:29 Zepbound 2.5 mg/0.5 mL subcutaneou s pen injector 2023 024 CHADD [facility], [address] [facility], [place], [address], 14:17:24 Patient TargetsNo targets recorded. Patient Instructions Encounter Date Encounter Id Patient Instructions Last Modified By Organization Details Last Modified Time 07/14/2024 [id number] body mass index: care instructions efryman Not available 07/14/2024 14:39:39 learning about healthy weight efryman Not available 07/14/2024 14:39:39 Reason for Referral Gastroenterology Surgery Ref erral for Swallowing finding Referring Physician: Héctor Roy, Family Medicine, Encounter Date: 12/24/2024 Results Created Date Observation Date Name Description Value Unit Range Abnormal Flag Note LastModifiedBy Organization Detail LastModifiedTime 07/14/2007/14/2024 HbA1c (hemo globi n A1c), blood HbA1C 5.8 % Not Available [address], [address], 07/14/2024 14:20:54 11/17/19 25 11/16/2024 rapid strep group A, throa t Strep negati ve Not Available [address], [address], 11/16/2024 15:04:08 11/17/19 25 11/16/2024 rapid strep group A, throa t Culture No Not Available [address], [address], 11/16/2024 15:04:08 11/17/19 25 11/16/2024 rapid flu (A+B) Flu negati ve Not Available [address], [address], 11/16/2024 15:04:02 11/17/19 25 11/16/2024 rapid flu (A+B) Type Both A & B Not Available [address], [address], 11/16/2024 15:04:02 11/17/19 25 11/16/2024 rapid SARS CoV + SARS CoV 2 Ag, QL IA, respi rator y speci men SARS CoV antigen Negati ve Not Available [address], [address], 11/16/2024 15:03:54 12/25/19 25 12/25/2024 TSH+F REE T4 TSH 4.000 uIU/m L 0.450- 4.500 normal Not Available [facility] ([facility]) [address] [place], [address], 12/25/2024 14:13:55 12/25/19 25 12/25/2024 TSH+F REE T4 T4,free(dire ct) 1.22 NG/dL 0.82-1 .77 normal Not Available [facility] ([facility]) [address] [place], [address], 12/25/2024 14:13:55 12/25/19 25 12/25/2024 CBC WITH DIFFE RENTI AL/PL ATELE T WBC 8.4 x10e3 /uL 3.4-10 .8 normal Not Available [facility] ([facility]) [address] [place], [address], 12/25/2024 14:13:56 12/25/19 25 12/25/2024 CBC WITH DIFFE RENTI AL/PL ATELE T RBC 5.20 x10e6 /uL 3.77-5 .28 normal Not Available [facility] ([facility]) [address] [place], [address], 12/25/2024 14:13:56 12/25/19 25 12/25/2024 CBC WITH DIFFE RENTI AL/PL ATELE T hemoglobin 13.3 g/dL 11.1-1 5.9 normal Not Available [facility] ([facility]) [address] [place], [address], 12/25/2024 14:13:56 12/25/19 25 12/25/2024 CBC WITH DIFFE RENTI AL/PL ATELE T hematocrit 42.4 % 34.0-4 6.6 normal Not Available [facility] ([facility]) [address] [facility], [place], [address], 12/25/2024 14:13:56 12/25/19 25 12/25/2024 CBC WITH DIFFE RENTI AL/PL ATELE T MCV 82 fL 79-97 normal Not Available [facility] ([facility]) [address] [facility], [place], [address], 12/25/2024 14:13:56 12/25/19 25 12/25/2024 CBC WITH DIFFE RENTI AL/PL ATELE T MCH 25.6 pg 26.6-3 3.0 below low normal Not Available [facility] ([facility]) [address] [place], [address], 12/25/2024 14:13:56 12/25/19 25 12/25/2024 CBC WITH DIFFE RENTI AL/PL ATELE T MCHC 31.4 g/dL 31.5-3 5.7 below low normal Not Available [facility] ([facility]) [address] [place], [address], 12/25/2024 14:13:56 12/25/19 25 12/25/2024 CBC WITH DIFFE RENTI AL/PL ATELE T RDW 15.2 % 11.7-1 5.4 Not Available [facility] ([facility]) [address] [place], [address], 12/25/2024 14:13:56 12/25/19 25 12/25/2024 CBC WITH DIFFE RENTI AL/PL ATELE T platelets 290 x10e3 /uL 150-45 0 normal Not Available [facility] ([facility]) [address] [facility], [place], [address], 12/25/2024 14:13:56 12/25/19 25 12/25/2024 CBC WITH DIFFE RENTI AL/PL ATELE T neutrophils 68 % not estab. normal Not Available [facility] ([facility]) [address] [facility], [place], [address], 12/25/2024 14:13:56 12/25/19 25 12/25/2024 CBC WITH DIFFE RENTI AL/PL ATELE T lymphs 25 % not estab. normal Not Available [facility] ([facility]) [address] [facility], [place], [address], 12/25/2024 14:13:56 12/25/19 25 12/25/2024 CBC WITH DIFFE RENTI AL/PL ATELE T monocytes 6 % not estab. normal Not Available [facility] ([facility]) [address] [facility], [place], [address], 12/25/2024 14:13:56 12/25/19 25 12/25/2024 CBC WITH DIFFE RENTI AL/PL ATELE T eos 0 % not estab. normal Not Available [facility] ([facility]) [address] [facility], [place], [address], 12/25/2024 14:13:56 12/25/19 25 12/25/2024 CBC WITH DIFFE RENTI AL/PL ATELE T basos 1 % not estab. normal Not Available [facility] ([facility]) [address] [facility], [place], [address], 12/25/2024 14:13:56 12/25/19 25 12/25/2024 CBC WITH DIFFE RENTI AL/PL ATELE T immature cells DATA PROCESSING EQUIPMENT REPAIRER Not Available [facility] ([facility]) [address] [facility], [place], [address], 12/25/2024 14:13:56 12/25/19 25 12/25/2024 CBC WITH DIFFE RENTI AL/PL ATELE T neutrophils (absolute) 5.7 x10e3 /uL 1.4-7. 0 normal Not Available [facility] ([facility]) [address] [place], [address], 12/25/2024 14:13:56 12/25/19 25 12/25/2024 CBC WITH DIFFE RENTI AL/PL ATELE T lymphs (absolute) 2.1 x10e3 /uL 0.7-3. 1 normal Not Available [facility] ([facility]) [address] [place], [address], 12/25/2024 14:13:56 12/25/19 25 12/25/2024 CBC WITH DIFFE RENTI AL/PL ATELE T monocytes(ab solute) 0.5 x10e3 /uL 0.1-0. 9 normal Not Available [facility] ([facility]) [address] [place], [address], 12/25/2024 14:13:56 12/25/19 25 12/25/2024 CBC WITH DIFFE RENTI AL/PL ATELE T eos (absolute) 0.0 x10e3 /uL 0.0-0. 4 normal Not Available [facility] ([facility]) [address] [place], [address], 12/25/2024 14:13:56 12/25/19 25 12/25/2024 CBC WITH DIFFE RENTI AL/PL ATELE T baso (absolute) 0.1 x10e3 /uL 0.0-0. 2 normal Not Available [facility] ([facility]) [address] [place], [address], 12/25/2024 14:13:56 12/25/19 25 12/25/2024 CBC WITH DIFFE RENTI AL/PL ATELE T immature granulocytes 0 % not estab. Not Available [facility] ([facility]) [address] [facility], [place], [address], 12/25/2024 14:13:56 12/25/19 25 12/25/2024 CBC WITH DIFFE RENTI AL/PL ATELE T immature grans (abs) 0.0 x10e3 /uL 0.0-0. 1 Not Available [facility] ([facility]) [address] [facility], [place], [address], 12/25/2024 14:13:56 12/25/19 25 12/25/2024 CBC WITH DIFFE RENTI AL/PL ATELE T NRBC DATA PROCESSING EQUIPMENT REPAIRER Not Available [facility] ([facility]) [address] [facility], [place], [address], 12/25/2024 14:13:56 12/25/19 25 12/25/2024 CBC WITH DIFFE RENTI AL/PL ATELE T hematology comments: DATA PROCESSING EQUIPMENT REPAIRER Not Available [facility] ([facility]) [address] [facility], [place], [address], 12/25/2024 14:13:56 12/25/19 25 12/25/2024 COMP. METAB OLIC PANEL (14) glucose 92 mg/dL 70-99 normal Not Available [facility] ([facility]) [address] [facility], [place], [address], 12/25/2024 14:13:57 12/25/19 25 12/25/2024 COMP. METAB OLIC PANEL (14) BUN 17 mg/dL 6-24 normal Not Available [facility] ([facility]) [address] [facility], [place], [address], 12/25/2024 14:13:57 12/25/19 25 12/25/2024 COMP. METAB OLIC PANEL (14) creatinine 0.69 mg/dL 0.57-1 .00 normal Not Available [facility] ([facility]) [address] [place], [address], 12/25/2024 14:13:57 12/25/19 25 12/25/2024 COMP. METAB OLIC PANEL (14) eGFR 102 mL/mi n/1.7 3 >59 normal Not Available [facility] ([facility]) [address] [facility], [place], [address], 12/25/2024 14:13:57 12/25/19 25 12/25/2024 COMP. METAB OLIC PANEL (14) BUN/creatini ne ratio 25 9-23 above high normal Not Available [facility] ([facility]) [address] [facility], [place], [address], 12/25/2024 14:13:57 12/25/19 25 12/25/2024 COMP. METAB OLIC PANEL (14) sodium 141 mmol/ L 134-14 4 normal Not Available [facility] ([facility]) [address] [facility], [place], [address], 12/25/2024 14:13:57 12/25/19 25 12/25/2024 COMP. METAB OLIC PANEL (14) potassium 4.3 mmol/ L 3.5-5. 2 normal Not Available [facility] ([facility]) [address] [facility], [place], [address], 12/25/2024 14:13:57 12/25/19 25 12/25/2024 COMP. METAB OLIC PANEL (14) chloride 100 mmol/ L 96-106 normal Not Available [facility] ([facility]) [address] [facility], [place], [address], 12/25/2024 14:13:57 12/25/19 25 12/25/2024 COMP. METAB OLIC PANEL (14) carbon dioxide, total 26 mmol/ L 20-29 normal Not Available [facility] ([facility]) [address] [facility], [place], [address], 12/25/2024 14:13:57 12/25/19 25 12/25/2024 COMP. METAB OLIC PANEL (14) calcium 9.6 mg/dL 8.7-10 .2 normal Not Available [facility] ([facility]) [address], [place], [address], 12/25/2024 14:13:57 12/25/19 25 12/25/2024 COMP. METAB OLIC PANEL (14) protein, total 6.8 g/dL 6.0-8. 5 normal Not Available [facility] ([facility]) [address], [place], [address], 12/25/2024 14:13:57 12/25/19 25 12/25/2024 COMP. METAB OLIC PANEL (14) albumin 4.2 g/dL 3.8-4. 9 normal Not Available [facility] ([facility]) [address] [place], [address], 12/25/2024 14:13:57 12/25/19 25 12/25/2024 COMP. METAB OLIC PANEL (14) globulin, total 2.6 g/dL 1.5-4. 5 Not Available [facility] ([facility]) [address] [facility], [place], [address], 12/25/2024 14:13:57 12/25/19 25 12/25/2024 COMP. METAB OLIC PANEL (14) bilirubin, total 0.3 mg/dL 0.0-1. 2 normal Not Available [facility] ([facility]) [address] [place], [address], 12/25/2024 14:13:57 12/25/19 25 12/25/2024 COMP. METAB OLIC PANEL (14) alkaline phosphatase 115 IU/L 44-121 normal Not Available [facility] ([facility]) [address] [facility], [place], [address], 12/25/2024 14:13:57 12/25/19 25 12/25/2024 COMP. METAB OLIC PANEL (14) AST (SGOT) 15 IU/L 0-40 normal Not Available [facility] ([facility]) [address] [place], [address], 12/25/2024 14:13:57 12/25/19 25 12/25/2024 COMP. METAB OLIC PANEL (14) ALT (SGPT) 14 IU/L 0-32 normal Not Available [facility] ([facility]) [address] [place], [address], 12/25/2024 14:13:57 12/25/19 25 12/25/2024 IRON AND TIBC iron bind.cap.(TI BC) 409 ug/dL 250-45 0 normal Not Available [facility] ([facility]) [address] [place], [address], 12/25/2024 14:13:57 12/25/19 25 12/25/2024 IRON AND TIBC UIBC 349 ug/dL 131-42 5 normal Not Available [facility] ([facility]) [address] [place], [address], 12/25/2024 14:13:57 12/25/19 25 12/25/2024 IRON AND TIBC iron 60 ug/dL 27-159 normal Not Available [facility] ([facility]) [address] [place], [address], 12/25/2024 14:13:57 12/25/19 25 12/25/2024 IRON AND TIBC iron saturation 15 % 15-55 normal Not Available [facility] ([facility]) [address] [place], [address], 12/25/2024 14:13:57 12/25/19 25 12/25/2024 VITAM IN B12 AND FOLAT E vitamin B12 323 pg/mL 232-12 45 normal Not Available [facility] ([facility]) [address] [place], [address], 12/25/2024 14:13:58 12/25/19 25 12/25/2024 VITAM IN B12 AND FOLAT E folate (folic acid), serum 4.1 NG/mL >3.0 normal A serum folat e swati ntrat ion of less than 3.1 ng/mL is consi dered to repre sent clini robb defic iency . Not Available [facility] ([facility]) [address] [facility], [place], [address], 12/25/2024 14:13:58 12/25/19 25 12/25/2024 HEMOG LOBIN A1C hemoglobin A1C 6.2 % 4.8-5. 6 above high normal Predi abete s: 5.7 - 6.4 Diabe rolly: >6.4 Glyce sony contr ol for adult s with diabe rolly: <7.0 Not Available [facility] ([facility]) [address] [facility], [place], [address], 12/25/2024 14:13:59 12/25/19 25 12/25/2024 VITAM IN D, 25-HY DROXY vitamin D, 25-hydroxy 36.2 NG/mL 30.0-1 00.0 Vitam in D defic iency has been defin ed by the Insti tute of Medic ine and an Endoc rine Socie ty pract ice guide line as a level of serum 25-OH vitam in D less than 20 ng/mL (1,2) . The Endoc rine Socie ty went on to [facility] er defin e vitam in D insuf ficie ncy as a level betwe en 21 and 29 ng/mL (2). 1. IOM (Inst itute of Medic ine). 2010. Dieta ry refer ence lupe es for calci um and D. Cecy pitt [place]: The [facility] Press . 2. Vaughn parrish MF, Justin ge [place], Faina off-F errar i THURSTON, et al. Evalu ation , treat ment, and preve ntion of vitam in D defic iency : an Endoc rine Socie ty clini robb pract ice guide line. JCEM. 2010; 96(7) :1911 -30. Not Available [facility] ([facility]) [address] [facility], [place], [address], 12/25/2024 14:13:59 12/25/19 25 12/25/2024 MAGNE SIUM magnesium 2.3 mg/dL 1.6-2. 3 normal Not Available [facility] ([facility]) [address] [facility], [place], [address], 12/25/2024 14:14:00 12/25/19 25 12/25/2024 NELA E NOTE please note Commen t The date and/o r time of colle ction was not indic ated on the requi sitio n as requi red by state and mason [place] law. The date of recei pt of the speci men was used as the colle ction date if not suppl ied. Not Available [facility] ([facility]) [address] [facility], [place], [address], 12/25/2024 14:14:01 01/20/20 25 01/19/2025 COLOG UARD cologuard result reportable Negati ve negati ve normal The Colog uard (TM) test was perfo rmed on this speci men. NEGAT ZHOU TEST RESUL T. A negat zhou Colog uard resul t indic ates a low likel ihood that a color ectal cance r (CRC) or advan med adeno ma (luis e omato us polyp s with more advan med pre-m align ant featu res) is prese nt. The chanc e that a perso n with a negat zhou Colog uard test has a color ectal cance r is less than 1 in 1500 (nega tive predi ctive value >99.9 %) or has an advan med adeno ma is less than 5.3% (nega tive predi ctive value 94.7% ). These data are based on a prosp ectiv e cross -sect ional study of 10,00 0 indiv idual s at [facility] risk for color ectal cance r who were scree genevieve with both Colog uard and colon oscop y. (Sara Acevedo. et al, N Engl J Med 2014; 370(1 4):12 86-12 97) The marybeth l value (refe rence range ) for this assay is negat zhou. COLOG UARD RE-SC REENI NG RECOM MENDA TION: Perio dic color ectal cance r scree jeremiah is an impor tant part of preve ntive healt hcare for asymp tomat ic indiv idual s at [facility] risk for color ectal cance r. Follo wing a negat zhou Colog uard resul t, the Ameri can Cance r Socie ty and U.S. Multi -Soci ety Task Force scree jeremiah guide lines recom mend a Colog uard re-sc reeni ng inter sawyer of 3 years . Refer ences : Ameri can Cance r Socie ty Guide line for Color ectal Cance r Scree jeremiah: https ://ww w.can cer.o rg/ca ncer/ colon -rect al-ca ncer/ detec tion- diagn osis- stagi ng/ac s-rec ommen datio ns.ht ml.; Sanju LISA, Alisha morrison CR, Margo ZhangK, Color ectal Cance r Scree jeremiah: Recom menda tions for Physi cians and Patie nts from the U.S. Multi -Soci ety Task Force on Color ectal Cance r Scree jeremiah , Cali jacobson y 2017; 112:1 016-1 030. TEST DESCR IPTIO N: [place] site algor ithmi c sathya sis of stool DNA-b iomar kers with hemog lobin immun oassa y. Quant itati ve value s of indiv idual bioma rkers are not repor table and are not assoc iated with indiv idual bioma rker resul t refer ence range s. Colog uard is inten ded for color ectal cance r scree jeremiah of adult s of eithe r sex, 45 years or older , who are at [facility]-vt sk for color ectal cance r (CRC) . Colog uard has been appro mckayla for use by the U.S. FDA. The perfo rmanc e of Colog uard was estab lishe d in a cross secti onal study of [facility] adult s aged 50-84 . Colog uard perfo rmanc e in patie nts ages 45 to 49 years was estim ated by sub-g roup sathya sis of near- age group s. Colon oscop ies perfo rmed for a posit zhou resul t may find as the most clini douglas signi fican t lesio n: color ectal cance r [4.0% ], advan med adeno ma (incl uding sessi le caesar shayna polyp s great er than or equal to 1cm diame ter) [20%] or non- advan med adeno ma [31%] ; or no color ectal neopl reji [45%] . These estim ates are deriv ed from a prosp ectiv e cross -sect ional scree jeremiah study of 0 indiv idual s at [facility] risk for color ectal cance r who were scree genevieve with both Colog uard and colon oscop y. (Sara Acevedo. et al, N Engl J Med 2014; 370(1 4):12 86-12 97.) Colog uard may produ ce a false negat zhou or false posit zhou resul t (no color ectal cance r or preca ncero us polyp prese nt at colon oscop y follo w up). A negat zhou Colog uard test resul t does not guara ntee the absen ce of CRC or advan med adeno ma (pre- cance r). The curre nt Colog uard scree jeremiah inter sawyer is every 3 years . (Amer ican Cance r Socie ty and U.S. Multi -Soci ety Task Force ). Colog uard perfo rmanc e data in a 0 patie nt pivot al study using colon oscop y as the refer ence metho d can be acces sed at the follo wing locat ion: www.e xactl abs.c om/re sults . Addit ional descr iptio n of the Colog uard test proce ss, warni ngs and preca ution s can be found at www.nikhil hodges.nikhil om. Not Available [facility] (Cologuard Orders Only) [address], [place], [address], 01/27/2025 06:25:26 08/26/20 24 08/26/2024 XR, shoul tonny, 2 or more view No observ ation record ed. [address] (Centralized Scheduling) [address] [place] [address] [place], [address], 08/27/2024 08:05:14 08/26/20 24 08/26/2024 XR, knee, 3 view No observ ation record ed. [address] (Centralized Scheduling) [address] [place] [address] [place], [address], 08/27/2024 08:05:14 12/11/19 25 12/10/2024 elect rocar diogr am No observ ation record ed. [address], [address], 12/10/2024 10:24:55 12/11/19 25 12/10/2024 elect rocar diogr am No observ ation record ed. [email or web address] [address], [address], 12/10/2024 16:04:44 12/12/19 25 12/10/2024 elect rocar diogr am No observ ation record ed. [facility] [address], [place], [address], 12/11/2024 10:07:56 12/12/19 25 12/10/2024 XR, chest , 2 view No observ ation record ed. [facility] [address], [place], [address], 12/11/2024 11:21:38 Result Notes None recorded. Problems Name Problem SNOMED Code Status Onset Date Resolution Date Notes Provider Name and Address Organization Details Recorded Time Varicose veins of lower extremity 53820524 Active 2017 Bea Moreira null, [place] [facility] 12:36:25 Menopausal syndrome 767237434 Active Marge santaan, [place] - [facility] 8 13:56:27 Peripheral vascular disease 965778072 Active 2017 Bea Moreira null, [place] - [facility] 8 12:01:28 Hypertensive disorder 97137896 Active 2015 Rashad Owens null, [place] - [facility] 6 09:02:16 Gastroesophag eal reflux disease 473615878 Active 2015 Rashad Owens null, [place] - [facility] 6 09:02:22 Neuropathy 982248417 Active 2015 Rashad Owens null, [place] - [facility] 6 09:02:27 Raynaud's disease 636743434 Active 2020 Bea santana, [place] - [facility] 1 13:30:15 Acquired absence of cervix and uterus 157455185 Active 2021 Lorna Bustamante, DO [address], [place], [address] , [place] - [facility] 2 15:17:57 Vitamin D deficiency 27242591 Active 2021 Dinorah Shore, OUTSIDE PHYSICAL DAMAGE APPRAISER [address], [place], [address] , [place] - [facility] 2 11:49:37 Dependent edema 526508843 Active 2021 Yu Marshall, OUTSIDE PHYSICAL DAMAGE APPRAISER [address], [place], [address] , [place] - [facility] 2 15:46:06 Prediabetes 547301306 Active 2021 Yu Marshall, OUTSIDE PHYSICAL DAMAGE APPRAISER [address], [place], [address] , [place] - [facility] 2 15:48:00 Cellulitis of lower limb 274604477 Active 2021 Yu Marshall, OUTSIDE PHYSICAL DAMAGE APPRAISER [address], [place], [address] , [place] [facility] 15:53:29 Anxiety [id number] Active 2021 Charmaine santana [place] - [facility] 13:42:49 Screening mammography Active 2022 Lorna Bustamante, DO [address], [place], [address] , [place] - [facility] 09:04:25 Venous insufficiency of leg [id number] Active 2022 Dinorah Ferminssie, OUTSIDE PHYSICAL DAMAGE APPRAISER [address], [place], [address] , [place] - [facility] 15:14:52 Urge incontinence of urine [id number] Active 2023 Dinorah Ferminssie, OUTSIDE PHYSICAL DAMAGE APPRAISER [address], [place], [address] , [place] [facility] 09:24:41 Problem Notes None recorded. Procedures Surgical History Date Name Laterality Status Provider Name and Address Organization Details Recorded Time 024 Medication Reconcilliation completed Laura Pierre [place] - [facility] 11/14/2023 14:59:42 023 Medication Reconcilliation completed Laura Pierre [place] [facility] 05/03/2023 09:57:49 023 Date of Last Mammogram completed Sonia Stevenson [place] - [facility] 03/28/2023 09:22:56 023 Medication Reconcilliation completed Yu Maguire [place] - [facility] 01/01/2023 08:53:33 022 Medication Reconcilliation completed Raymundo Ramesh [place] - [facility] 10/20/2021 14:49:47 021 Medication Reconcilliation completed Crystal Bill [place] [facility] 04/25/2021 12:11:19 021 Unlisted px femur/knee completed Crystal Bill [place] [facility] 04/14/2021 13:10:35 020 Diastolic B/P 80-89 mm Hg completed Crystal Bill [place] [facility] 08/12/2020 10:47:46 020 Systolic B/P 130-139 mm Hg completed Crystal Bill [place] [facility] 08/12/2020 10:47:43 020 Systolic B/P less than 130 mm Hg completed Crystal Bill [place] [facility] 07/12/2020 15:57:44 020 Diastolic B/P 80-89 mm Hg completed Crystal Bill [place] [facility] 07/12/2020 15:57:46 020 Diastolic B/P greater than or equal to 90 mm Hg completed Crystal Bill [place] [facility] 07/01/2020 11:27:42 020 Systolic B/P greater than or equal to 140 mm Hg completed Crystal Bill [place] [facility] 07/01/2020 11:27:29 020 Systolic B/P less than 130 mm Hg completed Crystal Bill [place] [facility] 03/10/2020 08:31:12 020 Diastolic B/P 80-89 mm Hg completed Crystal Bill [place] [facility] 03/10/2020 08:31:15 020 Diastolic B/P 80-89 mm Hg completed Crystal Bill [place] [facility] 09/14/2019 09:31:13 020 Systolic B/P 130-139 mm Hg completed Crystal Bill [place] [facility] 09/14/2019 09:31:10 019 Medication Reconcilliation completed Laura Hidalgo [place] [facility] 09/11/2018 15:29:28 018 cardiac catheterization completed So Logan [place] [facility] 11/24/2021 08:40:21 016 Hysterectomy, Total laparoscopic completed Jayne Allen [place] [facility] 08/30/2016 11:12:07 016 Diagnostic Laparoscopy completed Marge Patrick [place] [facility] 07/16/2016 16:25:11 015 Date of Last Pap Smear completed Marge [place] [facility] 07/16/2016 16:25:52 004 LEEP completed Marge [place] [facility] 07/16/2016 16:24:51 004 Colposcopy completed Marge Patrick [place] [facility] 07/16/2016 16:26:26 004 Colposcopy completed Marge LARKIN - [facility] 07/16/2016 16:23:30 004 Cryocautery of cervix completed Marge LARKIN - [facility] 07/16/2016 16:23:57 003 Colposcopy completed Marge LARKIN - [facility] 07/16/2016 16:23:15 000 Dilation and Curettage, sharp completed Marge LARKIN - [facility] 07/16/2016 16:24:28 997 Tubal Ligation completed Marge LARKIN - [facility] 07/16/2016 16:25:32 Breast Biopsy completed Marge LARKIN - [facility] 07/16/2016 16:22:26 Cholecystectomy, laparoscopic completed Marge LARKIN [facility] 07/16/2016 16:22:38 Ear Tubes - Tympanostomy Tubes completed Marge LARKIN [facility] 07/16/2016 16:24:38 Cardiac Cath completed Lorena Khan [place] - [facility] 03/29/2022 15:25:13 Hysterectomy [place] [facility] 03/29/2022 15:25:13 Stress test completed [place]na [place] [facility] 03/29/2022 15:25:13 stripping of vein completed Laura Hidalgo [facility] 09/11/2018 15:34:11 Imaging Results None recorded. Procedure Notes None recorded. Medical Equipment None Reported. Allergies Allergen ID Allergen Name Allergen Category Reaction Reaction Severity Criticality Documentation Date Start Date Code Code System Note Provider Name and Address Organization Details Recorded Time [id number] hydrocodo ne Not available Not available Not available Not available 09/10/2024 5489 RxNorm [facility], [place] - [facility] 13:15:53 Medications Name Sig Start Date Stop Date Status Note LastModified by Organization Details LastModified Time compound drug 08/09 completed Not Available Not Available Not Available Prescript ion - Clarifica tion 10/21 completed Not Available Not Available Not Available Prescript ion - New 10/21 completed [facility] Compound ing Pharmacy Not Available Not Available Not Available nifedipin e ER 30 mg tablet,ex tended release 24 hr Take 1 tablet every day by oral route for 90 days. 09/10 completed Not Available Not Available Not Available furosemid e 40 mg tablet TAKE ONE TABLET BY MOUTH EVERY DAY 05/03 completed Not Available Not Available Not Available clotrimaz ole 10 mg rafael TAKE ONE (1) TABLET FIVE (5) TIMES A DAY BY MOUTH FOR 7 DAYS. 08/06 completed Not Available Not Available Not Available silver sulfadiaz ine 1 % topical cream APPLY A 1/16 INCH (1.5 MM) THICK LAYER TO ENTIRE BURN AREA BY TOPICALR OUTE 2 TIMES PER DAY 08/09 completed Not Available Not Available Not Available albuterol sulfate 0.63 mg/3 mL solution for nebulizat ion use in nebulize r as directed 3 times a day as needed for 30 days 04/07 completed albutero l sulfate 0.63 mg/3 mL inhalati on solution for nebuliza tion;Pre scribe Status: Prescrib ed on: 07/23/20 14 9:54AM;D iscontin ued Status: Disconti nued on: 04/07/20 15 8:15AM;U ser: [email or web address];Es t. Completi on: 10/21/19 15;Pharm acyVerif ied: 07/23/20 14 9:54AM Not Available Not Available Not Available doxycycli ne hyclate 100 mg capsule TAKE ONE (1) CAPSULE TWICE A DAY BY ORAL ROUTE FOR 7 DAYS, FOR TICK BITE. 12/10 completed Not Available Not Available Not Available ipratropi um 0.5 mg-albute rol 3 mg (2.5 mg base)/3 mL nebulizat ion soln INHALE CONTENTS OF ONE (1) VIAL FOUR (4) TIMES DAILY NEEDED active Not Available Not Available No t Available torsemide 20 mg tablet TAKE 2 TABLETS BY MOUTH EVERY DAY 01/02 completed Not Available Not Available Not Available clindamyc in HCl 300 mg capsule take 1 capsule (300 mg) by oral route 2 times per day for 10 days 08/09 completed Not Available Not Available Not Available albuterol sulfate 2.5 mg/3 mL (0.083 %) solution for nebulizat ion INHALE THREE (3) ML THREE (3) TIMES A DAY BY NEBULIZA TION ROUTE NEEDED. 07/14 completed Not Available Not Available Not Available oxybutyni n chloride ER 10 mg tablet,ex tended release 24 hr TAKE ONE (1) TABLET BY MOUTH EVERY DAY active Not Available Not Available No t Available Lotrisone 1 %-0.05 % topical cream APPLY TO THE AFFECTED AND SURROUND ING AREAS OF SKIN BY TOPICAL ROUTE 2 TIMES PER DAY IN THE MORNING AND EVENING FOR 2 WEEKS 11/21 completed Not Available Not Available Not Available hydrocodo ne 5 mg-acetam inophen 325 mg tablet Take 1 tablet twice a day by oral route after meal(s) for 14 days. 11/16 completed Not Available Not Available Not Available Claritin 10 mg tablet take 1 tablet (10 mg) by oral route once daily 11/21 completed Claritin 10 mg oral tablet;P rescribe Status: Prescrib ed on: 01/19/20 16 4:43PM;U ser: grayn;Es t. Completi on: 07/17/20 16;Indic ation: Allergic Rhinitis - ([id number] );Phar macyVeri fied: 01/19/20 16 4:43PM Not Available Not Available Not Available meloxicam 15 mg tablet TAKE ONE (1) TABLET BY MOUTH DAILY. 09/10 completed Not Available Not Available Not Available metronida zole 0.75 % (37.5 mg/5 gram) vaginal gel insert 1 applicat orful (37.5 mg) by vaginal route once daily at bedtime starting 5 nights before surgery 04/02 completed Not Available Not Available Not Available prednison e 20 mg tablet TAKE TWO (2) TABLETS EVERY DAY BY ORAL ROUTE FOR FIVE (5) DAYS. 07/14 completed Not Available Not Available Not Available isosorbid e mononitra te ER 30 mg tablet,ex tended release 24 hr TAKE ONE (1) TABLET BY MOUTH EVERY DAY active Not Available Not Available No t Available Prilosec 20 mg capsule,d elayed release take 1 capsule (20 mg) by oral route once twice daily before a meal 08/27 completed Prilosec 20 mg oral capsule, delayed release( DR/EC);P rescribe Status: Prescrib ed on: 06/05/20 13 1:51PM;D iscontin ued Status: Disconti nued on: 08/27/20 13 11:15AM; User: [email or web address];Es t. Completi on: 07/05/20 13;Indic ation: Gastroes ophageal Reflux - ([id number] );Phar Marissa fied: 06/05/20 13 1:51PM Not Available Not Available Not Available Zithromax Z-[place] 250 mg tablet take 2 tablets (500 mg) by oral route once daily for 1 day then 1 tablet (250 mg) by oral route once daily for 4 days 10/05 completed Not Available Not Available Not Available promethaz ine 6.25 mg-codein e 10 mg/5 mL syrup take 5 millilit ers by oral route every 6 hours as needed, not to exceed 30 mL in 24 hours for 5 days 12/15 completed prometha zine-cod eine 6.25-10 mg/5 mL oral syrup;Re corded Status: Recorded on: 08/27/20 13 11:41AM; Disconti nued Status: Disconti nued on: 12/16/19 14 11:21AM; User: [email or web address];Es t. Completi on: 09/01/20 13;Indic ation: Cough - (7862 ) Not Available Not Available Not Available amlodipin e 2.5 mg tablet take 1 tablet (2.5 mg) by oral route once daily 04/07 completed amlodipi ne 2.5 mg oral tablet;R ecorded Status: Recorded on: 02/20/20 12 3:56PM;D iscontin ued Status: Disconti nued on: 04/07/20 15 8:18AM;U ser: dickenc; Indicati on: Hyperten selam - ([id number] ) Not Available Not Available Not Available potassium chloride ER 10 mEq tablet,ex tended release TAKE 1 TABLET BY MOUTH EVERY DAY 09/22 completed Not Available Not Available Not Available clopidogr el 75 mg tablet TAKE ONE (1) TABLET BY MOUTH EVERY DAY active Not Available Not Available No t Available sulfameth oxazole 800 mg-trimet hoprim 160 mg tablet TK 1 T PO Q 12 H FOR 10 DAYS 08/12 completed Not Available Not Available Not Available omeprazol e 40 mg capsule,d elayed release TAKE 1 CAPSULE BY MOUTH ONCE DAILY BEFORE A MEAL 02/16 completed Not Available Not Available Not Available aspirin 81 mg tablet,de layed release TAKE ONE TABLET BY MOUTH EVERY DAY 09/10 completed Not Available Not Available Not Available tramadol 50 mg tablet TAKE ONE (1) TABLET BY MOUTH EVERY 8 HOURS NEEDED FOR PAIN. 03/05 completed Not Available Not Available Not Available spironola ctone 25 mg tablet TAKE ONE (1) TABLET EVERY DAY BY ORAL ROUTE FOR 30 DAYS. active Not Available Not Available No t Available Depo-Medr ol 80 mg/mL suspensio n for injection Take 80 mg by injectio n route. 04/25 completed Not Available Not Available Not Available prednison e 10 mg tablets in a dose pack USE DIRECTED PER PACKAGE 10/20 completed Not Available Not Available Not Available oxycodone -acetamin ophen 5 mg-325 mg tablet TAKE 1 TO 2 TABLETS BY MOUTH EVERY 6 HOURS NEEDED FOR PAIN 11/24 completed Not Available Not Available Not Available ceftriaxo ne 1 gram solution for injection Take 1 g by injectio n route. 05/28 completed Not Available Not Available Not Available Zofran 8 mg tablet Take 1 tablet every 8 hours by oral route as needed. 06/30 completed Not Available Not Available Not Available estradiol 1 mg tablet TAKE ONE (1) TABLET BY MOUTH EVERY DAY DIRECTED 2024 active Not Available Not Available Not Avai lable torsemide 100 mg tablet TAKE ONE HALF (1/2) TABLET BY MOUTH EVERY DAY 02/15 completed stopped by [facility] & started ernie de per cardio notes from 02/15/25 Not Available Not Available Not Available sulfaceta mide sodium 10 % eye drops INSTILL 1 DROP INTO AFFECTED EYE(S) BY OPHTHALM IC ROUTE EVERY 2-3 HOURS DURING THE DAY AND LESS FREQUENT LY AT NIGHT 12/25 completed Not Available Not Available Not Available cephalexi n 500 mg capsule TAKE 1 CAPSULE BY MOUTH TWICE DAILY FOR 7 DAYS 04/15 completed Not Available Not Available Not Available pantopraz ole 40 mg tablet,de layed release TAKE ONE (1) TABLET BY MOUTH EVERY DAY active Not Available Not Available No t Available Lincocin 300 mg/mL injection solution Take 300 mg by injectio n route. 10/01 completed Not Available Not Available Not Available ranitidin e 150 mg tablet take 1 tablet (150 mg) by oral route once daily at bedtime 04/14 completed Not Available Not Available Not Available promethaz ine 25 mg tablet TAKE ONE (1) TABLET BY MOUTH EVERY SIX (6) HOURS NEEDED FOR NAUSEA FOR UP TO 20 DOSES. 07/14 completed Not Available Not Available Not Available hydrochlo rothiazid e 12.5 mg capsule TAKE ONE (1) CAPSULE BY MOUTH EVERY DAY 10/05 completed Not Available Not Available Not Available nitroglyc chepe 0.4 mg sublingua l tablet DISSOLVE ONE (1) TABLET UNDER TONGUE EVERY FIVE (5) MINUTES NEEDED FOR CHEST PAIN active Not Available Not Available No t Available docusate sodium 100 mg capsule TAKE ONE CAPSULE THREE TIMES A DAY WHILE ON PAIN MEDS 09/10 completed Not Available Not Available Not Available gabapenti n 300 mg capsule Take 1 capsule twice a day by oral route as directed . 11/13 completed Not Available Not Available Not Available diclofena c sodium 75 mg tablet,de layed release Take 1 tablet twice a day by oral route for 30 days. 04/14 completed Not Available Not Available Not Available monteluka st 10 mg tablet TAKE ONE (1) TABLET BY MOUTH NIGHTLY active Not Available Not Available No t Available mupirocin 2 % topical ointment 07/05 completed Not Available Not Available Not Available furosemid e 20 mg tablet Take 1 tablet every day by oral route. 11/13 completed Not Available Not Available Not Available gabapenti n 100 mg capsule Take 1 capsule 3 times a day by oral route for 30 days. 11/24 completed Not Available Not Available Not Available estradiol 0.5 mg tablet take 1 tablet by mouth once daily as directed 09/14 completed Not Available Not Available Not Available metoprolo l succinate ER 25 mg tablet,ex tended release 24 hr Take 1 tablet every day by oral route. 09/10 completed Not Available Not Available Not Available ergocalci ferol (vitamin D2) 1,250 mcg (50,000 unit) capsule TAKE ONE (1) CAPSULE BY MOUTH EVERY WEEK active Not Available Not Available No t Available dexametha sone sodium phosphate 4 mg/mL injection solution Inject 1 mL every day by intramus cular route as directed . 08/09 completed Not Available Not Available Not Available ibuprofen 600 mg tablet 07/05 completed Not Available Not Available Not Available cefuroxim e axetil 500 mg tablet take 1 tablet (500 mg) by oral route 2 times per day for 7 days 08/14 completed Not Available Not Available Not Available levofloxa alena 500 mg tablet take 1 tablet by mouth once daily for 10 days 03/21 completed Not Available Not Available Not Available methylpre dnisolone 4 mg tablets in a dose pack FOLLOW PACKAGE DIRECTIO NS 08/11 completed Not Available Not Available Not Available albuterol sulfate HFA 90 mcg/actua tion aerosol inhaler Inhale 2 puffs every 4 hours by inhalati on route as needed. 2024 active Not Available Not Available Not Avai lable losartan 50 mg-hydroc hlorothia zide 12.5 mg tablet TAKE ONE (1) TABLET BY MOUTH EVERY DAY active Not Available Not Available No t Available dexametha sone sodium phosphate 10 mg/mL injection solution Take 5 mg by injectio n route. 10/01 completed Not Available Not Available Not Available losartan 100 mg tablet TAKE ONE (1) TABLET EVERY DAY BY ORAL ROUTE FOR 90 DAYS. 05/03 completed Not Available Not Available Not Available fluticaso ne propionat e 50 mcg/actua tion nasal spray,lo pension SPRAY ONE (1) SPRAY EVERY DAY BY INTRANAS AL ROUTE. active Not Available Not Available No t Available sertralin e 50 mg tablet TAKE ONE (1) TABLET BY MOUTH EVERY DAY 2024 active Not Available Not Available Not Avai lable imipramin e 25 mg tablet Take 1 tablet every day by oral route. 09/22 completed Not Available Not Available Not Available doxycycli ne hyclate 100 mg tablet Take 1 tablet twice a day by oral route for 7 days. 10/01 completed Not Available Not Available Not Available naproxen 500 mg tablet TAKE 1 TABLET BY MOUTH TWICE DAILY 04/14 completed Not Available Not Available Not Available amoxicill in 875 mg-potass ium clavulana te 125 mg tablet take 1 tablet by mouth twice a day for 7 days 03/21 completed Not Available Not Available Not Available nabumeton e 500 mg tablet Take 1 tablet twice a day by oral route as needed for 30 days. 06/30 completed Not Available Not Available Not Available oxycodone 5 mg tablet Take 1 tablet twice a day by oral route for 7 days. 09/10 completed Not Available Not Available Not Available cyclobenz aprine 5 mg tablet take 1 tablet (5 mg) by oral route 3 times per day for 14 days 04/10 completed cycloben zaprine 5 mg oral tablet;P rescribe Status: Prescrib ed on: 03/27/20 16 2:29PM;U ser: [email or web address];Lissy tWatson Completi on: 04/10/20 16;Indic ation: Muscle Spasm - ([phone]);Phar macyVeri fied: 03/27/20 16 2:29PM Not Available Not Available Not Available Premarin 0.625 mg/gram vaginal cream INSERT 0.5 APPLICAT ORSFUL BY VAGINAL ROUTE NIGHTLY FOR TWO (2) WEEKS THEN TWICE WEEKLY AFTER THAT active Not Available Not Available No t Available Benicar HCT 20 mg-12.5 mg tablet TAKE ONE TABLET BY MOUTH DAILY 04/17 completed Benicar HCT 20-12.5 mg oral tablet;P rescribe Status: Prescrib ed on: 04/17/20 16 3:15PM;D iscontin ued Status: Disconti nued on: 04/17/20 16 4:29PM;U ser: ember; Pharmacy Verified : 04/17/20 16 3:15PM Not Available Not Available Not Available Flovent HFA 110 mcg/actua tion aerosol inhaler Inhale 1 puff as needed by inhalati on route. 04/24 completed Not Available Not Available Not Available losartan 100 mg-hydroc hlorothia zide 12.5 mg tablet Take 1 tablet every day by oral route. 12/21 completed Not Available Not Available Not Available Ceftin 1 qd 09/19 completed ceftin 500 mg;Recor ded Status: Recorded on: 09/19/19 16 3:22PM;D iscontin ued Status: Disconti nued on: 09/19/19 16 4:49PM;U ser: doreen stern;Est. Completi on: 10/03/19 16;Indic ation: - (-5) Not Available Not Available Not Available Nitro 10/03 completed Nitro 0.4 oral;Rec orded Status: Recorded on: 04/07/20 15 8:15AM;D iscontin ued Status: Disconti nued on: 10/03/19 16 2:10PM;U ser: [email or web address] Bowen on: - (-5) Not Available Not Available Not Available Cleocin 1 tid 08/30 completed cleocin 300 mg;Recor ded Status: Recorded on: 08/30/20 15 10:53AM; Disconti nued Status: Disconti nued on: 08/30/20 15 4:24PM;U ser: doreen stern;Est. Completi on: 09/09/19 16;Indic ation: - (-5) Not Available Not Available Not Available hydrochlo rothiazid e 12.5 mg tablet TAKE 1 TABLET BY MOUTH EVERY DAY 12/29 completed Not Available Not Available Not Available diclofena c 1 % topical gel APPLY 2 GRAMS TO THE AFFECTED AREA FOUR TIMES A DAY NEEDED 04/14 completed Not Available Not Available Not Available Solu-Medr ol (PF) 125 mg/2 mL solution for injection Take 125 mg by injectio n route. 05/28 completed Not Available Not Available Not Available loratadin e 10 mg capsule active Not Available Not Available Not Available Eliquis 5 mg tablet TAKE ONE (1) TABLET BY MOUTH TWICE DAILY active Not Available Not Available No t Available Toro Fe 1.5/30 (28) 1.5 mg-30 mcg (21)/75 mg (7) tablet 07/05 completed Not Available Not Available Not Available Trelegy Ellipta 100 mcg-62.5 mcg-25 mcg powder for inhalatio n INHALE ONE (1) PUFF EVERY DAY BY INHALATI ON ROUTE FOR 30 DAYS. 07/14 completed Not Available Not Available Not Available Robert DVT-PE Treatment 30-Day Starter 5 mg (74 tablets) in dose pack TAKE ONE (1) STARTR PACKET BY ORAL ROUTE DIRECTED . 05/03 completed Not Available Not Available Not Available Ubrelvy 50 mg tablet 50 mg PO x 1: may repeat dose x1 after 2h 08/06 completed Not Available Not Available Not Available Trelegy Ellipta 200 mcg-62.5 mcg-25 mcg powder for inhalatio n INHALE ONE (1) PUFF BY MOUTH EVERY DAY active Not Available Not Available No t Available [facility] [employer] [facility] 2014) COVID-19 Vaccine (PF) 30 mcg/0.3 mL IM susp (purple) ADMINIST ER 0.3ML IN THE MUSCLE DIRECTED 04/14 completed Not Available Not Available Not Available Mounjaro 2.5 mg/0.5 mL subcutane ous pen injector Inject 2.5 mg every week by subcutan eous route for 30 days. 07/20 completed Not Available Not Available Not Available tirzepati de 10mg/2ml /0.5ml= 2.5mginj ect 2.5mg sc every week for 4 weeks then increase dose.1 ML vial 12/10 completed Not Available Not Available Not Available Zepbound 2.5 mg/0.5 mL subcutane ous pen injector Inject 2.5 mg every week by subcutan eous route for 30 days. 07/17 completed Not Available Not Available Not Available Vitals Date Recorded Body height Body mass index (BMI) Body weight Body temperature Respiratory rate Oxygen saturation Oxygen saturation in Arterial blood by Pulse oximetry Heart rate Systolic blood pressure Diastolic blood pressure Provider Name and Address Organization Details Last Updated DateTime 175.26 cm 43 kg/m2 295528. 38 g 97.9 [degF] 18 /min 97 % 97 % 80 /min 124 mm[Hg] 78 mm[Hg] Jayne Stears [place] - [facility] 5 14:54:21 Date Recorded Body height Body mass index (BMI) Body weight Respiratory rate Body temperature Heart rate Oxygen saturation Oxygen saturation in Arterial blood by Pulse oximetry Systolic blood pressure Diastolic blood pressure Provider Name and Address Organization Details Last Updated DateTime 5 175.26 cm 43.6 kg/m2 501893. 75 g 18 /min 98 [degF] 76 /min 99 % 99 % 130 mm[Hg] 80 mm[Hg] Jayne Aleksandars [place] - [facility] 5 08:16:37 Date Recorded Body height Body mass index (BMI) Body weight Heart rate Oxygen saturation Oxygen saturation in Arterial blood by Pulse oximetry Respiratory rate Body temperature Systolic blood pressure Diastolic blood pressure Provider Name and Address Organization Details Last Updated DateTime 5 175.26 cm 43.3 kg/m2 477559. 56 g 68 /min 100 % 100 % 20 /min 97.1 [degF] 128 mm[Hg] 82 mm[Hg] Yu Donaldson [place] - [facility] 5 08:46:31 Date Recorded Body height Respiratory rate Body mass index (BMI) Body weight Heart rate Oxygen saturation Oxygen saturation in Arterial blood by Pulse oximetry Body temperature Systolic blood pressure Diastolic blood pressure Provider Name and Address Organization Details Last Updated DateTime 4 175.26 cm 18 /min 45.7 kg/m2 338711. 14 g 104 /min 96 % 96 % 97.8 [degF] 116 mm[Hg] 74 mm[Hg] Jayne Aleksandars [place] - [facility] 4 13:57:36 Date Recorded Body height Body mass index (BMI) Body weight Heart rate Oxygen saturation Oxygen saturation in Arterial blood by Pulse oximetry Body temperature Respiratory rate Systolic blood pressure Diastolic blood pressure Provider Name and Address Organization Details Last Updated DateTime 4 175.26 cm 45.5 kg/m2 251968. 45 g 91 /min 98 % 98 % 97.9 [degF] 18 /min 120 mm[Hg] 80 mm[Hg] Kailyn kemp [place] - [facility] 4 15:16:28 Social History Question Answer Notes LastModified by Organizat ion Details LastModified Time Tobacco Smoking Status Former Smoker Dinorah [place] [facility]2020 09:44:41 Do You Have An Advance Directive? No [email or web address] Information n ot available 07/16/2016 Are You Blind Or Do You Have Difficulty Seeing? No Information n ot available 03/29/2022 Is Blood Transfusion Acceptable In An Emergency? Yes [email or web address] Information not available 07/16/2016 What Is Your Level Of Caffeine Consumption? Moderate Information not available 03/29/2022 How Much Tobacco Do You Chew? None [email or web address] Information not available 07/16/2016 In The 14 Days Before Symptom Onset, Have You Had Close Contact With A Laboratory-confirm ed COVID-19 While That Case Was Ill? No Information n ot available 02/22/2023 In The 14 Days Before Symptom Onset, Have You Had Close Contact With A Person Who Is Under Investigation For COVID-19 While That Person Was Ill? No Information not available 02/22/2023 Have You Been To An Area Known To Be High Risk For COVID-19? No Information not available 02/22/2023 Are You Deaf Or Do You Have Serious Difficulty Hearing? No [email or web address] Information not available 07/16/2016 What Type Of Diet Are You Following? REGULAR [email or web address] Information n ot available 07/16/2016 Which Illicit Or Recreational Drugs Have You Used? None [email or web address] Information not available 07/16/2016 Have You Processed Blood Or Body Fluids From An Ebola Virus Disease Patient Without Appropriate PPE? No Information not available 02/22/2023 Do You Reside In Or Have You Traveled To An Area Where Ebola Virus Transmission Is Active? No Information not available 02/22/2023 What Is The Highest Grade Or Level Of School You Have Completed Or The Highest Degree You Have Received? [id number] Information not available 03/29/2022 How Many Days Of Moderate To Strenuous Exercise, Like A Brisk Walk, Did You Do In The Last 7 Days? 1 Information not available 03/29/2022 On Those Days That You Engage In Moderate To Strenuous Exercise, How Many Minutes, On Average, Do You Exercise? 1 Information not available 03/29/2022 How Hard Is It For You To Pay For The Very Basics Like Food, Housing, Medical Care, And Heating? [id number] Information not available 03/29/2022 When Did You Quit Smoking? 16+yearssince [email or web address] Information not available 11/24/2021 Have You Recently Or Are You Planning To Travel To An Area With Zika Virus? No Information not available 02/22/2023 How Many Years Have You Used Illicit Or Recreational Drugs? 0 Information not available 03/29/2022 Live Alone Or With Others? With Others Information not available 03/29/2022 What Was The Date Of Your Most Recent Tobacco Screening? 12/24/2024 [email or web address] Information not available 12/24/2024 How Many Children Do You Have? 2 [email or web address] Information not available 07/16/2016 What Is Your Current Pack Years? 20-29packpaulo [email or web address] Information not available 06/04/2022 Performs Monthly Self-breast Exam? Yes Information no t available 03/29/2022 Do You Use Protection During Sex? No Information not available 03/29/2022 Do You Use Protection Against STDs? No Information not available 03/29/2022 What Is Your Relationship Status? [email or web address] Information not available 07/16/2016 Do You Use Your Seat Belt Or Car Seat Routinely? Yes Information not available 03/29/2022 Seat Belts Used Routinely Yes Information not available 03/29/2022 Are You Sexually Active? Yes [email or web address] Information not available 07/16/2016 Do You Have Smoke And Carbon Monoxide Detectors In Your Home? Yes Information not available 03/29/2022 At What Age Did You Start Smoking Tobacco? 17 Information not available 03/29/2022 Are You Passively Exposed To Smoke? Yes Information no t available 03/29/2022 How Much Tobacco Do You Smoke? No Information not available 03/29/2022 General Stress Level Medium Information not available 03/29/2022 Do You Use Sunscreen Routinely? No Information not available 08/09/2016 Has Tobacco Cessation Counseling Been Provided? No Information not available 12/25/2022 On What Date Was Tobacco Cessation Counseling Provided? 05/28/2024 [email or web address] Information not available 05/28/2024 How Many Years Have You Smoked Tobacco? 5 Information not available 03/29/2022 Do You Have Difficulty Walking Or Climbing Stairs? No Information not available 03/29/2022 Sex: Female Functional Status Question Answer Note LastModified by Organizat ion Details LastModified Time Do you or have you ever used smokeless tobacco? Never used smokeless tobacco Information not available 10/05/2020 Are you currently employed? Yes [email or web address] Information not available 07/16/2016 Urinary incontinence assessment performed? Yes Information not available 03/29/2022 Are you able to care for yourself? Yes Information not available 03/29/2022 Do you have difficulty dressing or bathing? No Information not available 03/29/2022 Do you or have you ever used e-cigarettes or vape? Never used electronic cigarettes Information not available 10/05/2020 What is your exercise level? None Information not available 07/16/2016 Do you use any illicit or recreational drugs? No [email or web address] Information not available 01/03/2024 Do you or have you ever used any other forms of tobacco or nicotine? No Information not available 12/25/2022 What is your level of alcohol consumption? None [email or web address] Information not available 07/16/2016 Are you able to walk? YESWOREST Information not available 03/29/2022 Do you have difficulty doing errands alone? 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 [id number] Information not available 07/14/2024 Do you have difficulty concentrating, remembering or making decisions? No Information no t available 03/29/2022 Family History Relationship Description Onset Age of this Age Resolved Age Notes LastModified by Organization Details LastModified Time Father Heart disease 52 Not available 2021 15:25:11 Father Disease of liver Not available 2021 15:25:11 Mother Diabetes mellitus Not available 2021 15:25:11 Mother Malignant tumor of breast Not available 2021 15:25:11 Mother Asthma Not available 0 03/29/2022 15:25:11 Mother Heart disease 2011 Not available 2021 15:25:11 Mother Cerebrovascu lar accident Not available 15:25:11 Mother Malignant tumor of cervix Not available 2021 15:25:11 Mother Chronic obstructive pulmonary disease Not available 2021 15:25:11 Mother Malignant neoplasm of lung Not available 2021 15:25:11 Mother Hypertensive disorder [email or web address] Not available 2023 13:52:46 Unspecified Relation Malignant neoplasm of uterus bstears Not available 2023 13:52:46 Medical History Condition Response Gout N Kidney or Bladder Problems Y Lung Disease Y Anemia Y Muscle, Joint, or Bone Problems Y Obesity Y Arthritis Y Acid Reflux (GERD) Y Fibromyalgia Y Headaches Y Hypertension Y Osteoporosis Y Gynecological History Statement/Question Response Abnormal Pap Y Flow Heavy Date of Last Mammogram 03/20/2023 Date of LMP 07/02/2016 Post Menopausal Bleeding N STIs/STDs N Colposcopy 03/03/2004 HPV Vaccine N Duration of Flow (days) 0 Current Control Method Hysterectom y Age at Menarche 11 Age at First Child 23 Last Annual Exam/Provider 11-24-2021 SMO If Post Menopausal, Age at Menopause 43 Frequency of Cycle (Q days) 0 Most Recent Bone Density Sexually Active? Y Menses Monthly N Date of Last Pap Smear 06/16/2015 Sexual Problems? N LMP Definite Hormone Replacement Therapy Y Obstetrics History GPAL:G 2 P 2 0 0 2 Type Value Multiple Births 0 Full Term 2 Induced 0 Spontaneous 0 Premature 0 Living 2 Ectopics 0 Total 2 Immunizations Vaccine Type Date Status Note Provider Parish yang and Address Organization Details Recorded Time influenza, unspecified formulation 06/09/20 12 completed Not Available [facility] 10/10/2023 10:34:35 Influenza, split virus, quadrivalent, preservative 02/23/20 23 cancelled product out of stock Lorna Bustamante, DO [address], [place], [address], [place] - [facility] 02/25/2023 22:40:59 Influenza, split virus, quadrivalent, preservative 06/09/20 16 completed Not Available [facility] 10/10/2023 10:34:35 Influenza, split virus, quadrivalent, preservative 07/10/20 17 completed [facility] 10/10/2023 10:34:35 Influenza, split virus, quadrivalent, preservative 06/20/20 18 completed Not Available [facility] 10/10/2023 10:34:35 COVID-19 vaccine, vector-nr, rS-Ad26, PF, 0.5 mL 09/05/20 20 completed Not Available [facility] 10/10/2023 10:34:35 COVID-19 vaccine, vector-nr, rS-Ad26, PF, 0.5 mL 09/26/19 21 completed Not Available [facility] 10/10/2023 10:34:35 Hep A, adult 05/08/20 18 completed So Desmond null, [place] - [facility] 11/24/2021 08:37:54 Hep A, adult 11/20/19 19 completed So Desmond [place], [place] [facility] 11/24/2021 08:38:00 Influenza, split virus, trivalent, PF 06/09/20 12 completed Yu Donaldson [place], [place] [facility] 08/06/2022 16:41:41 Tdap 04/16/20 17 completed Yu Donaldson [place] [facility] 08/09/2022 13:58:08 COVID-19, mRNA, LNP-S, PF, 30 mcg/0.3 mL dose 09/26/19 21 completed Laura Pierre null, [place] [facility] 04/15/2023 13:53:56 COVID-19, mRNA, LNP-S, PF, 30 mcg/0.3 mL dose 09/06/20 20 completed Laura Pierre [place], [place] [facility] 04/15/2023 13:53:56 COVID-19, mRNA, LNP-S, PF, 30 mcg/0.3 mL dose, olvin-sucrose 02/22/20 22 completed Laura Hayslior null, [place] - [facility] 04/15/2023 13:53:56 COVID-19, mRNA, LNP-S, bivalent, PF, 30 mcg/0.3 mL dose 11/29/19 23 completed Laura Figisaias null, [place] - [facility] 04/15/2023 13:53:56 Past Encounters Encounter ID Performer Location Encounter Start Date Encounter Closed Date Diagnosis/Indication Diagnosis SNOMED-CT Code Diagnosis ICD10 Code Diagnosis Note [id number] [facility] [address] [place] [address] 02/20/2012 00:00:00 [id number] [facility] [address] [place] [address] 03/06/2012 00:00:00 [id number] [facility] [address] [place] [address] 05/01/2012 00:00:00 [id number] [facility] [address] [place] [address] 06/05/2013 00:00:00 [id number] [facility] [address] [place] [address] 07/29/2012 00:00:00 [id number] [facility] [address] [place] [address] 08/27/2013 00:00:00 [id number] [facility] [address] [place] [address] 06/05/2013 00:00:00 [id number] [facility] [address] [place] [place] [address] 12/15/2013 00:00:00 [id number] [facility] [address] [place] [address] 07/23/2014 00:00:00 [id number] [facility] [address] [place] [address] 04/07/2015 00:00:00 [id number] [facility] [address] [place] [address] 06/16/2015 00:00:00 [id number] [facility] [address] [place] [address] 2015 00:00:00 [id number] [facility] [address] [place] [address] 08/16/2015 00:00:00 [id number] [facility] [address] [place] [address] 03/27/2016 00:00:00 [id number] [facility] [address] [place] [address] 08/30/2015 00:00:00 [id number] [facility] [address] [place] [address] 09/19/2015 00:00:00 [id number] [facility] [address] [place] [address] 10/03/2015 00:00:00 [id number] [facility] [address] [place] [address] 12/08/2015 00:00:00 [id number] [facility] [address] [place] [address] 12/09/2015 00:00:00 [id number] [facility] [address] [place] [address] 12/28/2015 00:00:00 [id number] [facility] [address] [place] [address] 12/09/2015 00:00:00 [id number] [facility] [address] [place] [address] 01/19/2016 00:00:00 [id number] [facility] [address] [place] [address] 02/20/2016 00:00:00 [id number] [facility] [address] [place] [address] 03/15/2016 00:00:00 [id number] Nuzhat Kwon MD [facility] [address] [place] [address] 07/04/2016 10:30:42 07/04/2016 16:01:16 Venous ulcer of lower extremity due to chronic peripheral venous hypertension 9072567264 02936 I87.319 Essential hypertension 42720073 I10 [id number] DO Joan [place] PRESIDENT PRACTICING UROLOGIST [address] [place] [address] [place]AY[place] Méndez [address] 07/16/2016 16:03:09 07/16/2016 16:55:15 Female stress incontinence 28012734 N39.3 Surgery scheduled Skin lesion 66951967 L98 .9 [id number] DO Joan [place] PRESIDENT PRACTICING UROLOGIST [address] [place] [address] CHAY[place] Méndez [address] 08/09/2016 09:33:21 08/09/2016 10:32:17 Pre-surgery evaluation 450367357 Z01.818 Dysfunctio nal uterine bleeding 03691657 N93.8 Female str ess incontinence 70324804 N39.3 Surgery scheduled [id number] DO Ama Walker PRESIDENT PRACTICING UROLOGIST [address] [place] [address] [place] Méndez [address] 08/30/2016 10:58:30 08/30/2016 12:13:35 Surgical follow-up 250489207 Z09 Body mass index 40+ - severely obese 809627726 Z68.42 [id number] DO Ama Walker PRESIDENT PRACTICING UROLOGIST [address] [place] [address] [place]AY[place] Méndez [address] 10/03/2016 15:57:50 10/03/2016 16:57:59 Surgical follow-up 643387792 Z09 Body mass index 40+ - severely obese 728964530 Z68.42 Hypertensive disorder 38 507590 I10 [id number] Kashmir Garibay MD [facility] [address] [place] [address] 03/19/2017 10:15:24 03/19/2017 11:41:28 Ulcer of lower extremity 54935802 L97.909 Hyperlipidemia 69137944 E78.5 Body mass index 40+ - severely obese 003292821 Z68.42 [id number] Kashmir Garibay MD [address] [place] [address] 04/02/2017 08:03:31 04/02/2017 08:57:18 Depression screening 066991164 Z13.89 Ulcer of l ower extremity 04172882 L97.909 Body mass index 40+ - severely obese 717241852 Z68.42 Venous ulc er of lower extremity due to chronic peripheral venous hypertension 6410184028 56674 I87.564 [id number] Kashmir Garibay MD [address] [place] [address] 04/16/2017 08:08:57 04/16/2017 09:37:20 Administration of tetanus vaccine 210321139 Z23 Ulcer of l ower extremity 07110074 L97.909 Essential hypertension 56585124 I10 Insomnia 033816506 G47.0 0 Weight gain 5741210 R63. 5 [id number] Kashmir Garibay MD [address] [place] [address] 08/07/2017 10:48:15 08/07/2017 13:05:02 Hypertensive disorder 22179790 I10 Neuropathy 903758619 G62 .9 Gastroesop hageal reflux disease 788290256 K21.9 Ulcer of l ower extremity 78129511 L97.909 isrrael wrap not too tight tape both ends double lasix Body mass index 40+ - severely obese 334434786 Z68.42 [id number] Kashmir Garibay MD [address] [place] [address] 08/14/2017 08:31:48 08/14/2017 09:47:37 Gastroesophageal reflux disease 302488185 K21.9 Hypertensive disorder 38 849578 I10 Neuropathy 100325978 G62 .9 Skin ulcer 12313711 L98. 833 [id number] Kashmir Garibay MD [address] [place] [address] 08/20/2017 14:34:33 08/20/2017 16:07:39 Neuropathy 671260938 G62.9 Essential hypertension 49234975 I10 Chronic ob structive pulmonary disease 59317688 J44.9 Gastroesop hageal reflux disease 269308365 K21.9 Hypertensive disorder 38 135402 I10 Skin ulcer 65890763 L98. 499 Skin lesion 46408404 L98 .9 Body mass index 40+ - severely obese 647846689 Z68.42 Venous ulc er of lower extremity due to chronic peripheral venous hypertension 2579936350 81922 I87.658 [id number] Kashmir Garibay MD [address] [place] [address] 09/17/2017 10:40:53 09/17/2017 11:52:42 Neuropathy 512631018 G62.9 Venous ulc er of lower extremity due to chronic peripheral venous hypertension 4958500897 07273 I87.311 Wound of skin 215859154 T14.8XXD [id number] Bea Moreira OUTSIDE PHYSICAL DAMAGE [facility] [address] [place] [address] 11/21/2017 15:01:06 11/21/2017 16:30:10 Neuropathy 918933803 G62.9 Hypertensive disorder 38 470379 I10 Body mass index 40+ - severely obese 953552264 Z68.42 Venous sta sis ulcer of leg 693214843 I83.009 Screening for cardiovascular system disease 657926785 Z13.6 Superficia l thrombophlebitis 4403528 I80.9 Endocrine/ metabolic screening 178285603 Z13.803 [id number] Bea Moreira [address] [place] [address] 12/02/2017 12:53:44 12/02/2017 13:31:55 Venous stasis ulcer of leg 531160067 I83.009 Neuropathy 990805765 G62 .9 Hypertensive disorder 38 225075 I10 Body mass index 40+ - severely obese 358428498 Z68.42 Superficia l thrombophlebitis 2829957 I80.9 Cough 46121238 R05 [id number] Lorna Bustamante DO [place] PRESIDENT [employer]ACTICING UROLOGIST [address] [place] [address] [place] Méndez [address] 01/28/2018 13:47:47 01/28/2018 14:30:02 Menopausal syndrome 556753594 N95.9 [id number] Kashmir Garibay MD [address] [place] [address] 03/31/2018 14:25:55 03/31/2018 16:50:55 Fibromyalgia 160369206 M79.7 Gastroesop hageal reflux disease 422221972 K21.9 Hypertensive disorder 38 733480 I10 Neuropathy 522254283 G62 .9 Body mass index 40+ - severely obese 248548802 Z68.42 Aftercare 642397736 Z51. 89 [id number] Bea Moreira OUTSIDE PHYSICAL DAMAGE APPRAISER [address] [place] [address] 04/24/2018 10:53:53 04/24/2018 15:24:25 Nausea and vomiting 55106826 R11.2 Peripheral vascular disease 662698218 I73.9 [id number] DO Joan [place] PRESIDENT PRACTICING UROLOGIST [address] [place] [address] [place] Méndez [address] 06/30/2018 13:50:13 06/30/2018 15:02:49 Routine gynecologic examination done 7638332209 9101 Z01.419 Depression screening 171 151891 Z13.89 Diet education 38546417 Z71.3 Counseling 624208090 Z71 .82 Exercise counselmaritza g. Patient encouraged to exercise 30 minutes 5 days a week. Examinatio n of blood pressure 696615925 Z01.30 Acquired a bsence of cervix and uterus 388997738 Z90.710 Menopausal syndrome 1237 38747 N95.9 Body mass index 40+ - severely obese 750167750 Z68.42 Screening mammography 24 730370 Z12.31 [id number] Bea Moreira APRN [address] [place] [address] 09/11/2018 15:04:36 09/11/2018 16:26:15 Cough 48993191 R05 Pneumonia 350241342 J18. 9 [id number] Bea oMreira [address] [place] [address] 03/19/2019 14:13:56 03/19/2019 15:55:45 Gastroesophageal reflux disease 409546736 K21.9 Essential hypertension 83234467 I10 Dysuria 18871424 R30.0 Hyperlipidemia 18345183 E78.5 [id number] Bea Moreira [address] [place] [address] 09/14/2019 08:46:28 09/14/2019 09:58:08 Osteoarthritis 820623683 M19.90 Upper resp iratory infection 99372466 J06.9 [id number] DO Joan [place] PRESIDENT PRACTICING UROLOGIST [address] [place] [address] [place] [address] 09/28/2019 11:21:23 09/28/2019 12:16:19 Routine gynecologic examination done 3868168645 9101 Z01.419 Depression screening 171 482780 Z13.89 Diet education 39888855 Z71.3 Counseling 411821579 Z71 .82 Exercise counsellin g. Patient encouraged to exercise 30 minutes 5 days a week. Examinatio n of blood pressure 743060554 Z01.30 Vaccine de clined by patient 6019722317 02 Z28.21 Screening mammography 24 038478 Z12.31 History of total hysterectomy 863818316 Z90.710 Screening for malignant neoplasm of colon 016807331 Z12.11 Declined referral for colonoscop y [id number] Bea Moreira [address] [place] [address] 12/22/2019 15:11:02 12/22/2019 15:36:10 Dental abscess 760142654 K04.7 [id number] Bea Moreira [address] [place] [address] 03/10/2020 08:22:09 03/10/2020 09:30:53 Gastroesophageal reflux disease 964736524 K21.9 Hypertensive disorder 38 006379 I10 Neuropathy 339231969 G62 .9 Body mass index 40+ - severely obese 744527481 Z68.42 Dysuria 87672779 R30.0 Vitamin D deficiency 347 97103 E55.9 Screening for cardiovascular system disease 975262135 Z13.6 Fatigue 72252956 R53.83 [id number] Bea Moreira [address] [place] [address] 07/01/2020 11:18:51 07/01/2020 11:57:18 Cellulitis of skin 114978871 L03.90 Osteoarthr osis of the carpometacarpal joint of the thumb 93898049 M18.9 [id number] Bea Moreira [address] [place] [address] 07/12/2020 15:48:28 07/12/2020 16:32:11 Cellulitis of skin 477695792 L03.90 Osteoarthr osis of the carpometacarpal joint of the thumb 33189733 M18.9 [id number] Bea Moreira [address] [place] [address] 08/12/2020 10:25:34 08/12/2020 11:24:09 Venous stasis ulcer co-occurrent with edema of lower leg 4633354003 9100 I83.341 [id number] Bea Moreira [address] [place] [address] 08/25/2020 14:36:27 08/25/2020 14:58:42 Venous stasis ulcer co-occurrent with edema of lower leg 2077179706 9100 I83.759 [id number] DO Ama Walker PRESIDENT PRACTICING UROLOGIST [facility] [place] [address] 10/05/2020 09:18:45 10/05/2020 10:31:41 Routine gynecologic examination done 7908899369 9101 Z01.419 Depression screening 171 916065 Z13.89 Diet education 29580887 Z71.3 Counseling 029245344 Z71 .82 Exercise counselmaritza hernandez. Patient encouraged to exercise 30 minutes 5 days a week. Examinatio n of blood pressure 820873770 Z01.30 Vaccine de clined by patient 9244596105 02 Z28.21 Declined. Screening mammography 24 333096 Z12.31 Acquired a bsence of cervix and uterus 088624181 Z90.710 08/21/16 Menopausal syndrome 1237 64371 N95.9 Screening for malignant neoplasm of colon 898182245 Z12.11 Declined referral for colonoscop y - cologuard NEG 11/23/19 [id number] Bea Moreira [address] [place] [address] 04/14/2021 12:39:35 04/14/2021 13:41:02 Knee pain 84693276 M25.561 Body mass index 40+ - severely obese 096789407 Z68.42 Peripheral vascular disease 606285293 I73.9 Hypertensive disorder 38 731603 I10 [id number] Bea Moreira [address] [place] [address] 04/25/2021 11:35:14 04/25/2021 12:36:00 Knee pain 79500505 M25.426 [id number] Bea Moreira [address] [place] [address] 08/11/2021 15:25:18 08/11/2021 16:33:55 Knee pain 79369666 M25.569 Body mass index 30+ - obesity 876423332 Z68.42 Tear of me niscus of knee 754844409 S83.206D [id number] Bea Moreira [address] [place] [address] 10/20/2021 14:06:50 10/20/2021 15:23:49 Postviral cough 001130806 R05.9 Fatigue 33951351 R53.83 COVID-19 560153685 U07.1 [id number] Lorna Bustamante DO [place] PRESIDENT PRACTICING UROLOGIST [address] [facility] [place]én[place] [address] 11/24/2021 10:44:54 11/24/2021 11:42:59 Routine gynecologic examination done 9762049233 9101 Z01.419 Depression screening 171 065737 Z13.89 Diet education 24493536 Z71.3 Counseling 614550005 Z71 .82 Exercise counselmaritza g. Patient encouraged to exercise 30 minutes 5 days a week. Examinatio n of blood pressure 034258332 Z01.30 Screening mammography 24 957005 Z12.31 Body mass index 40+ - severely obese 719518317 Z68.42 Ex-smoker 2658751 Z87.89 1 Acquired a bsence of cervix and uterus 451313666 Z90.710 08/21/16 [id number] Dinorah Shore [address] [place] [address] 11/24/2021 09:07:38 11/24/2021 09:45:21 Fatigue 48294985 R53.83 Screening for cardiovascular system disease 845472527 Z13.6 Endocrine/ metabolic screening 042485038 Z13.228 Depressive disorder 3548 9007 F32.A [id number] Dinorah Shore [address] [place] [address] 12/29/2021 09:22:22 12/29/2021 09:53:52 Body mass index 40+ - severely obese 568683311 Z68.42 Vitamin D deficiency 347 52469 E55.9 Hypertensive disorder 38 219162 I10 Depressive disorder 3548 9007 F32.A [id number] Yu Marshall [address] [place] [address] 03/29/2022 15:13:39 03/29/2022 16:03:00 Body mass index 40+ - severely obese 839242950 Z68.42 Morbid obesity 228503225 E66.01 Dependent edema 93003714 4 R60.0 Prediabetes 506569080 R7 3.03 Vitamin D deficiency 347 24503 E55.9 Cellulitis of lower limb 811701692 L03.677 [id number] Dinorah Shore [address] [place] [address] 04/10/2022 09:42:05 04/10/2022 10:40:10 Screening for cardiovascular system disease 347793669 Z13.6 Endocrine/ metabolic screening 840056563 Z13.228 Chest pain 16937556 R07. 9 Candidiasis of mouth 797 21435 B37.0 [id number] Dinorah Shore [address] [place] [address] 06/04/2022 10:29:36 06/04/2022 11:07:30 Migraine 13698639 G43.909 Bilateral carpal tunnel syndrome [id number] 5177219 G56.03 [id number] Oliviabillie [address] [address] 08/06/2022 15:56:59 08/06/2022 17:00:33 Acute bronchitis 58519953 J20.9 [id number] [place] [address] 08/09/2022 13:22:43 08/09/2022 14:19:55 Conjunctivitis 6754672 H10.9 Acute maxi llary sinusitis 41266664 J01.00 [id number] Dinorah Shore [address] [place] [address] 10/05/2022 10:29:51 10/05/2022 11:14:21 Pain in right lower limb 860869409 M79.604 Edema of r ight lower leg 946163467 R60.0 Varicose v eins of lower extremity 11368168 I83.93 [id number] Dinorah Shore [address] [place] [address] 12/25/2022 10:37:58 12/25/2022 11:56:21 Vitamin D deficiency 97707245 E55.9 Dependent edema 80593103 4 R60.0 Hypertensive disorder 38 326975 I10 Gastroesop hageal reflux disease 852548376 K21.9 Anxiety 50897681 F41.9 Fatigue 34894182 R53.83 Prediabetes 140218213 R7 3.03 Pain of mu ltiple joints 57332286 M25.50 Screening for malignant neoplasm of colon 040942119 Z12.11 Body mass index 40+ - severely obese 581152211 Z68.43 Morbid obesity 034070862 E66.01 [id number] Dinorah Shore [place] [address] [address] 01/01/2023 08:39:21 01/01/2023 10:05:16 Pain of right knee joint 5155914211 47540 M25.584 [id number] Lorna Bustamante DO [place] [facility] [address] [place] [address] CHAY[place] Méndez [address] 02/22/2023 08:25:58 02/22/2023 09:23:23 Routine gynecologic examination done 6442571203 9101 Z01.419 Depression screening 171 120507 Z13.31 Diet education 97064830 Z71.3 Counseling 885156415 Z71 .82 Exercise counsellin g. Patient encouraged to exercise 30 minutes 5 days a week. Examinatio n of blood pressure 797386469 Z01.30 Vaccine de clined by patient 3518036193 02 Z28.21 Declined. Screening mammography 24 934929 Z12.31 Renewal of prescription 950175719 Z76.0 Acquired a bsence of cervix and uterus 247954875 Z90.710 08/21/16 Screening for malignant neoplasm of colon 696518657 Z12.11 cologuard NEG 11/23/19 - [facility] demarco on intercourse 452293047 N89.8 Urge incon tinence of urine 63337574 N39.41 [id number] Dinorah Shore [place] [address] [address] 03/05/2023 08:46:58 03/05/2023 09:19:06 Edema of left lower leg 029773559 R60.0 Ultrasound ordered. Will call with results.Ad vised to elevated affected extremity Cellulitis of left foot 5695299674 3065314 L03.116 Begin prescribed medication as written.Ke ep affected area clean and dry. Wash daily with antibacter ial soap.Monit or for signs/symp toms of infection and notify office should they occur. Body mass index 40+ - severely obese 569825892 Z68.43 Morbid obesity 184269156 E66.01 Venous ins ufficiency of leg 111590073 I87.2 Followed by [facility] [id number] Dinorah Shore APRN [address] [place] [address] 03/11/2023 09:47:53 03/11/2023 10:16:23 Cellulitis of left foot 9880332111 5221142 L03.116 ResolvingE ncouraged patient to complete cephalexin as previously prescribed .Keep affected area clean and dry. Wash daily with antibacter ial soap. May apply Neosporin to affected area.Monit or for signs/symp toms of infection and notify office should they occur.RTO in 1 week if symptoms have not improved. Or sooner if symptoms worsen. [id number] Kong Olmos MD [address] [place] [address] 04/15/2023 13:42:07 04/15/2023 14:31:58 Pre-surgery evaluation 766751811 Z01.818 No concerning findings, Pt is low-mod risk for procedure and may continue with same [id number] Kong Olmos MD [address] [place] [address] 04/26/2023 14:48:11 04/26/2023 15:23:54 Screening for malignant neoplasm of colon 044962887 Z12.11 Body mass index 40+ - severely obese 011892227 Z68.43 Morbid obesity 576601313 E66.01 Renewal of prescription 853350077 Z76.0 Urge incon tinence of urine 21315303 N39.41 Gastroesop hageal reflux disease 884906717 K21.9 Anxiety 08878683 F41.9 Hypertensive disorder 38 447488 I10 Postoperative pain 13105 9007 G89.18 [id number] Kong Olmos MD [address] [place] [address] 05/03/2023 09:06:54 05/03/2023 10:01:18 Hypertensive disorder 52367002 I10 d/c metoprolol , nifedipine and losartan-h ctz; Pt to continue with Losartan K+ and lasix 40mg [id number] Toyin Wagner [address] [place] [address] 09/10/2023 10:04:36 09/10/2023 11:27:10 Respiratory tract congestion and cough 768373518 R05.9 Acute bact erial bronchitis 773995824 J20.9 [id number] Dinorah Shore [address] [place] [address] 10/01/2023 10:59:52 10/01/2023 11:51:12 Pain of right shoulder joint 9717351008 3931416 M25.511 Nasal congestion 4323125 0 R09.81 Recommende d use of OTC antihistam ine [id number] Dinorah Shore [address] [place] [address] 10/10/2023 10:31:39 10/10/2023 11:29:06 Urge incontinence of urine 15321306 N39.41 Chronic ob structive pulmonary disease 11784013 J44.9 Dyspnea on exertion 6084 5006 R06.09 Dysfunctio n of bilateral eustachian tubes 4767926742 343123 H69.93 [id number] Kong Olmos MD [address] [place] [address] 11/14/2023 14:48:32 11/14/2023 15:29:08 Body mass index 40+ - severely obese 140401963 Z68.42 Morbid obesity 932133526 E66.01 Dyspnea on exertion 6084 5006 R06.09 Pt has 2DE scheduled i 4 days [id number] Kong Olmos MD [address] [place] [address] 01/03/2024 10:31:35 01/03/2024 12:15:48 Asthma 805171463 J45.909 Bilateral lower limb edema 820189363 R60.0 now resolved [id number] Héctor Roy [address] [address] 01/06/2024 13:00:04 01/06/2024 13:19:48 Tick bite 29608033 W57.XXXA alcohol area and removed with tweezers. entire tick removed, bleeding noted, held compressio n, bleeding stopped antibiotic ont applied and band aid. [id number] Kong Olmos MD [address] [place] [place] [address] 01/23/2024 09:37:34 01/23/2024 10:54:52 Dyspnea at rest 217002905 R06.00 Body mass index 40+ - severely obese 748916530 Z68.42 Morbid obesity 657894234 E66.01 [id number] Kong Olmos MD [address] [place] [address] 05/04/2024 16:16:52 05/04/2024 17:03:49 Nasal congestion 19785561 R09.81 [id number] Kong Olmos MD [address] [place] [address] 05/28/2024 11:02:50 05/28/2024 11:49:45 Hypertensive disorder 12266693 I10 d/c metoprolol , nifedipine and losartan-h ctz; Pt to continue with Losartan K+ and lasix 40mg [id number] Héctor Roy APRN [address] [address] 07/14/2024 13:48:00 07/14/2024 14:40:15 Prediabetes 712397262 R73.03 Body mass index 40+ - severely obese 814305965 Z68.42 discussed diet and exercisese nt med- if not covered will send to compound pharm Morbid obesity 757930674 E66.01 [id number] Kong Olmos MD [facility] [address] [facility] [place] [address] 08/25/2024 14:40:51 08/25/2024 15:53:43 Pain of right shoulder joint 9157781956 1286843 M25.511 Pain of le ft knee joint 9853977526 21545 M25.838 [id number] Héctor Roy [address] [address] 11/16/2024 14:41:22 11/16/2024 15:51:58 Acute maxillary sinusitis 25260876 J01.00 if symptoms worsen or no improvemen t return Dysfunctio n of bilateral eustachian tubes 3502940089 321334 H69.93 [id number] Héctor Roy [address] [address] 12/10/2024 08:04:44 12/10/2024 09:13:52 Chest pain 02733445 R07.9 sent to ed for eval Fatigue 45844719 R53.83 [id number] Héctor Roy [address] [address] 12/24/2024 08:31:57 12/24/2024 09:54:17 Severe obesity 3907347767 9104 E66.813 E66.01 Z68.41 43.3 Malaise and fatigue 2717 67435 R53.81 R53.83 follow up with cardiology , pulmonolog y, and sleep medicine as scheduled Swallowing finding 62740 900 R13.10 Health Concerns Section Related Observation LastModified by Organization Detai ls LastModified Time None Recorded Concern Status LastModified by Organization Details LastModified Time None Recorded Advance Directives Directive N: Payers Insurance Date Sequence Insurance Name Policy Number Policy Read Covered Member ID Read Member ID Guarantor Name 08/07/2022 1 [employer]ESS (PPO) [id number] Amy Treviño Crews [id number] Amy Crews 01/07/2023 2 *SELF PAY* Flower Treviño Crews 01/13/2025 1 [facility] Amy Crews [id number] Amy Treviño Crews 03/29/2022 1 [place] [id number] Amy Treviño Mars [id number] Amy Treviño Crews 09/10/2023 1 [employer] (PPO) Amy Treviño Mars [id number] Amy Treviño Crews 03/29/2022 1 [employer] (PPO) [id number] Amy Treviño Mars [id number] Amy Crews Notes Date Note Type Note Provider Name and Address Organization Details Recorded Time 07/14/2024 text/html 53 year old leticia sofia who presents to the office today with concerns of weight loss, currently has been taking mounjaro at Dr. Wilkes's office, this does not go through her pharmacy and she has been paying $75 per week, she states she is down 14 lbs from when she started as36-2-13Tpw has had to go to their office every week for injection, as their office will not let patients do at home injections. Héctor Roy, [employer] [address], [place], [address], [facility] 07/14/2024 14:41:17 08/25/2024 text/html Pt presents for right shoulder and left leg pain.Pt describes right shoulder pain as dull and grinding, without radiation, constant with a waxing and waning course, worst in AC joint area, associated intermittent parathesias in the right hand and some upper extremity weakness secondary to pain, relieved by rest, NSAIDs, warmth. Denies recent imaging.Pt states right knee pain for years . Pt describes pain as dull and grinding, without radiation, constant with a waxing and waning course, worst in low back and knees, associated swelling with knees, relieved by rest, NSAIDs, warmth. Denies recent imaging. Pt denies F/C, rashes, swelling, no new or worsening focal neurologic deficits. Kong Olmos MD [address], [place], [address], [place] - [facility] 09/03/2024 13:06:21 11/16/2024 text/html 54 year old leticia sofia who presents to the office today with concerns of right ear pain that runs down the neck, pressure on chest with coughing, headache green/blood tinged nasal drainage, sore throat and congestion since yesterday Héctor Roy APRN [address], [place], [address], [place] - [facility] 11/16/2024 15:45:30 12/10/2024 text/html 54 year old leticia sofia who presents to the office today with concerns of shortness of breath, chest pain, tired all the time, started after a episode on saturday Héctor Roy APRN [address], [place], [address], [place] - [facility] 12/10/2024 13:06:44 12/24/2024 text/html 54 yr old female presents for a follow up on chest pain and fatigue. Patient states its been going on for years. She sees Dr. Zambrano for Cardiology, and had a heart cath last fall. and stated (Dr. Zambrano) said I have the heart of a 10 year old. She states the pain is worse after eating or drinking and her noted she clears her throat frequently. Héctor Roy APRN [address], [place], [address], [place] - [facility] 12/24/2024 09:52:16 OBGyn Episode No OBEpisode recorded.
[2025-02-25 09:50] LABS: Basophils % 0.5 % (0.1-2.0); Eosinophils % 0.1 % (0.1-12.0); Hematocrit 41.5 % (37.0-47.0); Hemoglobin 12.9 g/dL (12.2-16.2); Immature Granulocytes # 0.02 10^3uL; Immature Granulocytes % 0.3 %; Lymphocytes # 2.1 K/mm3 (0.7-4.5); Lymphocytes % 26.8 % (10-50); Mean Corpuscular HGB Conc 31.1 g/dL (31.8-35.4); Mean Corpuscular Hemoglobin 25.5 pg (27.0-31.2); Mean Platelet Volume 9.7 fl (7.4-10.4); Monocytes # 0.4 K/mm3 (0.1-1.0); Monocytes % 5.1 % (1.7-9.3); Neutrophils # 5.3 K/mm3 (1.8-7.8); Neutrophils % 67.2 % (37.0-80.0); Nucleated Red Blood Cells # 0 10^3/uL; Nucleated Red Blood Cells % 0 %; Platelet Count 287 K/mm3 (142-424); Red Blood Count 5.06 M/mm3 (4.20-5.40); Red Cell Distribution Width 14.2 % (11.5-17.5); Red Cell Distribution Width-SD 42.2 fL; White Blood Count 7.9 K/mm3 (4.8-10.8)
[2025-02-25 10:46] LABS: Free T4 (Free Thyroxine) 1.13 ng/dl (0.78-2.19)
[2025-02-25 11:14] LABS: Albumin Level 4.1 g/dl (3.5-5.0)
[2025-02-25 11:15] LABS: Chloride 98 mmol/L (98-107); Potassium 3.4 mmoL/L (3.5-5.1); Sodium 137 mmol/L (136-145)
[2025-02-25 11:17] LABS: Bilirubin,Unconjugated 0.3 mg/dL (0.0-1.1); Blood Urea Nitrogen 18 mg/dl (7-17); Estimated Glomerular Filt Rate 87 ml/min (>60); GFR (African American) 105 ML/MIN (>60)
[2025-02-25 11:18] LABS: Alanine Aminotransferase 16 U/L (12-78); Alkaline Phosphatase 104 U/L (38-126); Anion Gap 6.4 mEq/L (5-15); Aspartate Amino Transferase 22 U/L (14-36); Bilirubin,Direct 0.1 mg/dl (0.0-0.4); Bilirubin,Indirect 0.3 mg/dL (0.0-0.9); Bilirubin,Total 0.4 mg/dl (0.2-1.3); Calcium 8.5 mg/dl (8.4-10.2); Carbon Dioxide 36 mmol/L (22.0-30.0); Chol/HDL Ratio 3.6 (1-3.5); Cholesterol 172 mg/dl (140-200); Glucose 100 mg/dl (74-100); HDL Cholesterol 48 mg/dl (40-60); Total Protein,Serum 6.9 g/dl (6.3-8.2); Triglycerides 120 mg/dl (30-150); VLDL Cholesterol 24 mg/dL (0-40)
[2025-02-25 11:21] LABS: Thyroid Stimulating Hormone 4.99 uIU/mL (0.465-4.68)
[2025-02-25 11:29] LABS: Direct LDL Cholesterol 80.93 mg/dL (100-129)
== END 2025-02-25 23:59 | disposition home or self-care (01) ==
LOC: LAB 09:31
PROVIDERS: PCP Nurse Practitioner Family; Visit Provider Nurse Practitioner Family
DX: I10 Essential (primary) hypertension (principal)
CPT/HCPCS: 36415; 80048; 80061; 80076; 84439; 84443; 85025

== ENCOUNTER 2025-03-15 11:41 | Outpatient (CLI) | payer OTHER, SELFPAY ==
[2025-03-15 12:36] LABS: Anion Gap 13.2 mEq/L (5-15); Blood Urea Nitrogen 14 mg/dl (7-17); Calcium 8.8 mg/dl (8.4-10.2); Carbon Dioxide 30 mmol/L (22.0-30.0); Chloride 99 mmol/L (98-107); Creatinine,Serum 0.70 mg/dl (0.52-1.04); Estimated Glomerular Filt Rate 87 ml/min (>60); GFR (African American) 105 ML/MIN (>60); Glucose 92 mg/dl (74-100); Potassium 4.2 mmoL/L (3.5-5.1); Sodium 138 mmol/L (136-145)
== END 2025-03-15 23:59 | disposition home or self-care (01) ==
LOC: LAB 11:41
PROVIDERS: PCP Nurse Practitioner Family; Visit Provider Nurse Practitioner Family
DX: I10 Essential (primary) hypertension (principal)
CPT/HCPCS: 36415; 80048

== ENCOUNTER 2025-04-13 09:10 | Day surgery (SDC) | payer OTHER, SELFPAY ==
[2025-04-07 12:38] VITALS: BMI 48.4
[2025-04-13 09:26] VITALS: BP 130/76; PULSE 66; RESP 18; TEMP 36.2; O2SAT 100; BMI 48.4
--- NOTE | 2025-04-13 09:39 | EXP.GEN.HP ---
HPI HPI HPI: This is a 54-year-old female who presents for esophagogastroduodenoscopy for evaluation regarding dysphagia. Over the past few months she has noticed increasing difficulty swallowing sometimes with liquids but mostly solids . [facility] Disclaimer: The information contained in this section may have been updated after the patient was seen, as this information can be updated by other users. Medical History (Updated 04/13/25 @ 09:40 by Butch Negro MD) Asthma Hx of deep venous thrombosis PVD (peripheral vascular disease) HTN (hypertension) Pulmonary HTN Family history of ischemic heart disease before age 50 Edema of both lower extremities Dyspnea Abnormal electrocardiogram [ECG] [EKG] Surgical History Hx of knee surgery Hx of tubal ligation Hx of hysterectomy Hx of cholecystectomy Hx of cardiac cath Family History Diabetes Mother Heart disease Brother Father Cancer Mother Social History Smoking Status: Former smoker alcohol intake: never current occupational status: employed Travel in the last 8 weeks?: None caffeine: No Have you lived/traveled outside US in past 30 days?: No Contact w/someone who lives/traveled outside US past 30 days?: No Exposure to someone with infectious disease in past 14 days?: No Do you have a fever (greater than 100.4 F or 38 C)?: No Have you tested positive for COVID-19?: No Exposed to someone with COVID-19 in past 14 days?: No Do you have a sore throat?: No Do you have a cough?: No Do you have any weakness?: No Are you experiencing any nausea/vomitting?: No Do you have any diarrhea?: No Are you experiencing any unusual bleeding?: No Do you have any muscle aches/pain?: No Do you have any abdominal pain?: No Are you experiencing loss of taste or smell?: No Review of Systems Review of Systems Review of systems:: pertinent systems reviewed and negative unless documented below *Gastrointestinal Gastrointestinal: Reports as per HPI Meds Home Medications and Allergies Home Medications ?Medication ?Instructions ?Recorded ?Confirmed ?Type albuterol sulfate 90 mcg/actuation 1 inh inhalation QID PRN copd 10/16/22 04/07/25 History aerosol inhaler ergocalciferol (vitamin D2) 1,250 1,250 mcg PO WEEKLY Supplement 10/16/22 04/07/25 History mcg (50,000 unit) capsule (Vitamin D2) estradiol 1 mg tablet 1 mg PO DAILY Supplement 10/16/22 04/07/25 History pantoprazole 40 mg tablet,delayed 40 mg PO DAILY GERD 10/16/22 04/07/25 History release sertraline 50 mg tablet 50 mg PO DAILY Depression 10/16/22 04/07/25 History apixaban 5 mg tablet (Eliquis) 5 mg PO BID 12/10/24 04/07/25 History clopidogrel 75 mg tablet 75 mg PO DAILY 12/10/24 04/07/25 History fluticasone fur. 200 mcg-umeclid 1 ea inhalation DAILY 12/10/24 04/07/25 History 62.5 mcg-vilant 25 mcg inhalat.powder (Trelegy Ellipta) fluticasone propionate 50 1 spray intranasal DAILY 12/10/24 04/07/25 History mcg/actuation nasal spray,suspension isosorbide mononitrate 30 mg 30 mg PO DAILY 12/10/24 04/07/25 History tablet,extended release 24 hr losartan 50 mg-hydrochlorothiazide 1 tab PO DAILY 12/10/24 04/07/25 History 12.5 mg tablet montelukast 10 mg tablet 10 mg PO HS 12/10/24 04/07/25 History oxybutynin chloride 10 mg 10 mg PO DAILY 12/10/24 04/07/25 History tablet,extended release 24 hr bumetanide 2 mg tablet 2 mg PO DAILY #90 tabs 02/19/25 04/07/25 Rx spironolactone 50 mg tablet 50 mg PO DAILY #90 tabs 02/26/25 04/07/25 Rx New Prescriptions to Start Prescriptions: Allergies Allergy/AdvReac Type Severity Reaction Status Date / Time No Known Allergies Allergy Verified 04/13/25 09:38 Exam Data for Last 24 hours Vital signs and Labs for Last 24 Hours: Temp Pulse Resp BP Pulse Ox O2 Del Method 97.1 F L 66 18 130/76 100 Room Air 04/13/25 09:26 04/13/25 09:26 04/13/25 09:26 04/13/25 09:26 04/13/25 09:26 04/13/25 09:26 I & O for Last 24 hours: Intake & Output 04/10/25 04/11/25 04/12/25 04/13/25 11:59 11:59 11:59 11:59 Weight 300 lb Constitutional Constitutional: no acute distress *Routine HEENT Exam Head: Present normocephalic Eye: Present EOMI ENT: Present mucous membranes moist *Routine Neck Exam Neck: Present full ROM *Routine Respiratory Exam Respiratory: Absent respiratory distress *Routine Cardiovascular Exam Cardiovascular: Absent tachycardia *Routine Abdominal Exam Abdominal: Present soft *Routine Rectal Exam Rectal:: deferred *Routine Genitalia Exam Genitalia:: deferred *Routine Extremities Exam Extremities: Present full ROM *Routine Skin Exam Skin: Absent erythema *Routine Neurological Exam Neurological: Present alert Assessment and Plan *Assessment and plan (1) Dysphagia: Status: Acute Qualifiers: Dysphagia type: unspecified Qualified Code(s): R13.10 - Dysphagia, unspecified Category: Medical Code(s): R13.10 - Dysphagia, unspecified Plan: Continue proton pump enervation Initially proceed with esophagogastroduodenoscopy I have discussed the risks and benefits including, but not limited to: Bleeding Infection Damage to surrounding tissue Inherent risks of sedation The patient agrees to proceed.
[2025-04-13] MEDS: LACTATED RINGERS 1000ML 1,000 ML 50 ML IV (09:48)
--- NOTE | 2025-04-13 09:49 | P.PNANES_ITS ---
[facility] Disclaimer: The information contained in this section may have been updated after the patient was seen, as this information can be updated by other users. Medical History (Updated 04/13/25 @ 09:40 by Butch Negro MD) Asthma Hx of deep venous thrombosis PVD (peripheral vascular disease) HTN (hypertension) Pulmonary HTN Family history of ischemic heart disease before age 50 Edema of both lower extremities Dyspnea Abnormal electrocardiogram [ECG] [EKG] Surgical History Hx of knee surgery Hx of tubal ligation Hx of hysterectomy Hx of cholecystectomy Hx of cardiac cath Family History Brother Heart disease Father Heart disease Mother Diabetes Cancer Social History Smoking Status: Former smoker alcohol intake: never substance use type: denies use current occupational status: employed Travel in the last 8 weeks?: None caffeine: No [facility] Anesthesia Checklist Patient Identification Patient Identification: Arm Band Structural Data Admitted From: Home Planned Operative Procedure/s: EGD Consent for Planned Operative Procedure(s) Verified: Yes Verified Documents: Surgical Consent and History and Physical NPO Status Verified Time NPO: 00:00 Additional verifications Anesthesia Reactions: No Airway Assessment Mallampati Score:: Class II C-Spine Mobility Assessed: Yes TMJ Mobility Assessed: Yes Dentition: Edentulous Neurological Assessment Level of Consciousness: Awake, Alert and Appropriate Anesthesia Plan Anesthesia Risk discussed: Yes Anesthesia Plan: Verified ASA Class: III Anesthesia Type: MAC
--- NOTE | 2025-04-13 10:05 | HMH.SCOPE ---
Procedure: Date: 04/13/25 Patient Date of :: 1970 Procedure Performed:: Esophagogastroduodenoscopy with biopsy Indications:: Dysphagia Gastroesophageal reflux Performing Provider:: Butch Negro MD Referring Provider:: . Sedation:: Monitored anesthesia care Procedure:: After informed consent was obtained the patient was taken to the endoscopy suite. Sedation ensued after the patient was transferred to the left lateral decubitus position. Pulse, blood pressure, and oxygen saturation were monitored throughout the procedure. The endoscope was advanced beyond the duodenal bulb. Retroflexion within the gastric lumen was accomplished. The gastroscope was carefully removed and the patient was transferred to recovery in stable condition. Please see findings and specimens below for detail. Findings:: Somewhat patulous esophagus with dysmotility Gastroesophageal junction at 38 cm Small sliding hiatal hernia Patchy gastritis Specimens:: Antral biopsy Recommendations:: Continue proton pump inhibition Follow-up pathology Consider repeat barium swallow/modified barium swallow Complications:: No immediate Estimated blood obtained (mL): 1 Colonoscopy Component Colonoscopy Component Was a colonoscopy performed during today's procedure?: No
[2025-04-13 10:10] VITALS: BP 128/76; PULSE 84; RESP 20; TEMP 36.2; O2SAT 92
[2025-04-13 10:20] VITALS: BP 129/78; PULSE 72; RESP 18; O2SAT 99
[2025-04-13 10:30] VITALS: BP 138/76; PULSE 73; RESP 18; O2SAT 100
[2025-04-13 10:40] VITALS: BP 121/75; PULSE 75; RESP 18; O2SAT 100
== END 2025-04-13 10:48 | disposition home or self-care (01) ==
PROVIDERS: PCP Nurse Practitioner Family; Visit Provider Surgery
PROC: 0DJ08ZZ Inspection of Upper Intestinal Tract, Via Natural or Artificial Opening Endoscopic (ICD-10-PCS; CPT 43239; principal; 2025-04-13 10:00)
DX: K44.9 Diaphragmatic hernia without obstruction or gangrene (principal); K29.50 Unspecified chronic gastritis without bleeding; J45.909 Unspecified asthma, uncomplicated; I10 Essential (primary) hypertension; I73.9 Peripheral vascular disease, unspecified; Z87.891 Personal history of nicotine dependence; Z79.899 Other long term (current) drug therapy; Z79.01 Long term (current) use of anticoagulants
CPT/HCPCS: 43239; J2003; J2704; J7120

== ENCOUNTER 2025-04-23 11:19 | Outpatient (CLI) | payer OTHER, SELFPAY ==
--- OUTSIDE RECORDS SUMMARY | 2025-03-02 14:30 | XMS_ITS | Encounter Summary ---
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 Encounter Details Date Type Department Care Team (Latest Contact Info) Description 03/02/2025 2:30 PM EDT Office Visit [facility] Pulmonology [facility] [address] [facility] Building [address] [place] [address] Gustavo Anthony MD [address] [place] [address] Moderate persistent asthma without complication (Primary Dx); [...] Sign Reading Time Taken Comments Blood Pressure 102/70 03/02/2025 2:33 PM EDT Pulse 66 03/02/2025 2:33 PM EDT Temperature - - Respiratory Rate - - Oxygen Saturation 96% 03/02/2025 2:33 PM EDT Inhaled Oxygen Concentration - - Weight 135.8 kg (299 lb 6.4 oz) 03/02/2025 2:33 PM EDT Height 167.6 cm (5' 6 ) 03/02/2025 2:33 PM EDT Body Mass Index 48.32 03/02/2025 2:33 PM EDT documented in this encounter Progress Notes * Gustavo Anthony MD - 03/02/2025 2:30 PM EDT [facility] Pulmonary Critical Care Medicine Physician: Gustavo Anthony MD Patient: Amy Crews Date: 03/02/2025 PCP: No primary care provider on file. OFFICE NOTE Amy Crews is a 54 y.o. female who is being seen for: Chief Complaint Patient presents with Asthma 2-month f/u. 6-month follow-up Breathing is about the same Compliant with Trelegy inhaler daily, also on Singulair daily Had sleep study recently, showed AHI of 87 Social history: Remote minimal smoking, quit in her 20s One cat at home Past Medical History: Diagnosis Date Arthritis Asthma Blood circulation, collateral Diabetes mellitus (HCC) Fibromyalgia GERD (gastroesophageal reflux disease) Hypertension Prediabetes Sleep apnea Past Surgical History: Procedure Laterality Date BREAST SURGERY CARDIAC CATHETERIZATION x 2 CHOLECYSTECTOMY 2000 COLONOSCOPY HYSTERECTOMY 08/2016 IR ULTRASOUND GUIDED VASCULAR ACCESS 02/15/2021 IR ULTRASOUND GUIDED VASCULAR ACCESS 02/15/2021 Talon Sprague, FTT IR IR ULTRASOUND GUIDED VASCULAR ACCESS 02/15/2021 IR ULTRASOUND GUIDED VASCULAR ACCESS 02/15/2021 Talon Sprague DO FTT IR IR ULTRASOUND GUIDED VASCULAR ACCESS 05/02/2023 IR ULTRASOUND GUIDED VASCULAR ACCESS 05/02/2023 Talon Sprague DO [facility] IR ULTRASOUND GUIDED VASCULAR ACCESS 03/19/2024 IR ULTRASOUND GUIDED VASCULAR ACCESS 03/19/2024 Talon Sprague DO [facility] KNEE ARTHROSCOPY Right 04/23/2023 RIGHT KNEE ARTHROSCOPY PARTIAL LATERAL MENISCECTOMY; Surgeon: Jaron Story MD; Location: [facility]; Service: Orthopedics SINUS SURGERY TUBAL LIGATION UPPER GASTROINTESTINAL ENDOSCOPY UVULOPALATOPHARYGOPLASTY VARICOSE VEIN SURGERY Bilateral 08/01/2018 Bilateral Greater saphenous vein ablation and stab phlebectomies left x 6 and right x 13; Surgeon: Talon Sprague DO; Location: [facility]; Service: Vascular VARICOSE VEIN SURGERY 08/01/2018 Surgeon: Talon Sprague DO; Location: [facility]; Service: Vascular Family History Problem Relation Age of Onset High Blood Pressure Mother Cancer Mother Breast and lungs Diabetes Mother Asthma Mother Lung Cancer Mother Stroke Mother Arthritis Mother Heart Disease Mother Heart Disease Father High Blood Pressure Father Emphysema Father High Blood Pressure Sister Heart Disease Brother Heart Disease Brother Diabetes Maternal Grandfather Diabetes Maternal Grandmother Breast Cancer Paternal Grandmother Breast Anesth Problems Neg Hx No Known Allergies Current Outpatient Medications: albuterol (PROVENTIL) 2.5 mg /3 mL (0.083 %) Inhl Solution for Nebulization, as needed., Disp: , Rfl: 0 albuterol-ipratropium (DUO-NEB) 0.5 mg-3 mg(2.5 mg base)/3 mL Inhl Solution for Nebulization, INHALE CONTENTS OF ONE (1) VIAL FOUR (4) TIMES DAILY NEEDED, Disp: , Rfl: apixaban (ELIQUIS) 5 mg Oral Tablet, Take 5 mg by mouth 2 times daily., Disp: , Rfl: bumetanide (BUMEX) 2 mg Oral Tablet, Take 2 mg by mouth daily., Disp: , Rfl: clopidogreL (PLAVIX) 75 mg Oral Tablet, TAKE ONE (1) TABLET BY MOUTH EVERY DAY, Disp: 30 Tablet, Rfl: 3 ergocalciferol (DRISDOL) 1,250 mcg (50,000 unit) Oral Capsule, TAKE ONE (1) CAPSULE EVERY WEEK BY MOUTH, Disp: , Rfl: estradioL (ESTRACE) 1 mg Oral Tablet, Take 1 mg by mouth daily. as directed, Disp: , Rfl: fluticasone propionate (FLONASE) 50 mcg/actuation Nasl [place], Suspension, SPRAY ONE (1) SPRAY EVERYDAY BY INTRANASAL ROUTE., Disp: , Rfl: fluticasone propionate (FLOVENT HFA) 110 mcg/actuation Inhl HFA Aerosol Inhaler, , Disp: , Rfl: zxbwhzfjevb-zzxqkckzm-szbiftos (TRELEGY ELLIPTA) 200-62.5-25 mcg Inhl Disk with Device, Inhale 1 Puff into the lungs daily., Disp: , Rfl: isosorbide mononitrate (IMDUR) 30 mg Oral Tablet Sustained Release 24 hr, , Disp: , Rfl: losartan-hydrochlorothiazide (HYZAAR) 50-12.5 mg Oral Tablet, TAKE ONE (1) TABLET BY MOUTH EVERY DAY, Disp: 30 Tablet, Rfl: 1 montelukast (SINGULAIR) 10 mg Oral Tablet, Take 1 Tablet by mouth nightly., Disp: 90 Tablet, Rfl: 6 oxybutynin (DITROPAN-XL) 10 mg Oral Tablet Extended Rel 24 hr, TAKE ONE (1) TABLET EVERY DAY BY ORAL ROUTE., Disp: , Rfl: pantoprazole (PROTONIX) 40 mg Oral Tablet, Delayed Release (E.C.), Take 40 mg by mouth daily., Disp: , Rfl: sertraline (ZOLOFT) 50 mg Oral Tablet, TAKE ONE (1) TABLET EVERY DAY BY ORAL ROUTE., Disp: , Rfl: spironolactone (ALDACTONE) 25 mg Oral Tablet, TAKE ONE (1) TABLET EVERY DAY BY ORAL ROUTE FOR 30 DAYS., Disp: , Rfl: estradiol (ESTRACE) 0.5 mg Oral Tablet, Take 1 mg by mouth daily. (Patient not taking: Reported on 03/02/2025), Disp: , Rfl: 0 fUROsemide (LASIX) 20 mg Oral Tablet, Take 20 mg by mouth daily. (Patient not taking: Reported on 03/02/2025), Disp: , Rfl: 0 gabapentin (NEURONTIN) 100 mg Oral Capsule, Take 100 mg by mouth as needed for Pain. (Patient not taking: Reported on 12/28/2024), Disp: , Rfl: imipramine (TOFRANIL) 25 mg Oral Tablet, Take by mouth nightly. (Patient not taking: Reported on 12/28/2024), Disp: , Rfl: losartan (COZAAR) 100 mg Oral Tablet, Take 100 mg by mouth daily. (Patient not taking: Reported on 03/02/2025), Disp: , Rfl: metoprolol succinate (TOPROL-XL) 25 mg Oral Tablet Sustained Release 24 hr, Take 25 mg by mouth daily. (Patient not taking: Reported on 12/28/2024), Disp: , Rfl: NIFEdipine (PROCARDIA XL) 30 mg Oral Tablet Extended Rel 24 hr, Take 1 Tab by mouth daily. (Patientnot taking: Reported on 12/28/2024), Disp: 30 Tab, Rfl: 3 omeprazole (PRILOSEC) 40 mg Oral Capsule, Delayed Release(E.C.), Take 40 mg by mouth daily. (Patient not taking: Reported on 03/02/2025), Disp: , Rfl: 0 potassium chloride (KLOR-CON) 10 mEq Oral Tablet Sustained Release, , Disp: , Rfl: PREMARIN Vagl Cream, INSERT 0.5 APPLICATORSFUL BY VAGINAL ROUTE NIGHTLY FOR TWO (2) WEEKS THEN TWICE WEEKLY AFTER THAT (Patient not taking: Reported on 03/02/2025), Disp: , Rfl: PROAIR HFA 90 mcg/actuation Inhl HFA Aerosol Inhaler, 1 Puff as needed. (Patient not taking: Reported on 03/02/2025), Disp: , Rfl: 0 ranitidine (ZANTAC) 150 mg Oral Capsule, Take 150 mg by mouth nightly. (Patient not taking: Reported on 03/02/2025), Disp: , Rfl: torsemide (DEMADEX) 100 mg Oral Tablet, TAKE 0.5 TABLETS EVERY DAY BY ORAL ROUTE FOR 30 DAYS. (Patient not taking: Reported on 03/02/2025), Disp: , Rfl: torsemide (DEMADEX) 20 mg Oral Tablet, Take 2 Tablets by mouth daily. (Patient not taking: Reportedon 12/28/2024), Disp: , Rfl: Immunization History Administered Date(s) Administered Pfizer SARS-CoV-2 Bivalent Booster Vaccine 12+ Years (Kwon border) 11/28/2022 Pfizer SARS-CoV-2 Vaccine 12+ Yrs (Purple Cap) 09/06/2020, 09/26/2020 Pfizer SARS-CoV-2 Vaccine Elmer-Sucrose 12+ Years (Kwon Cap) 02/21/2022 REVIEW OF SYSTEMS General: negative except as mentioned in the HPI Hent: no headache, no dizziness, no dysphagia, no congestion Heart: no chest pain, no palpitation Lung: negative except as mentioned in the HPI Abdomen: no nausea, no vomiting, no pain, no change in bowel habit : no dysuria, hematuria Joints: no pain, no stiffness, no swelling Lymph: denies palpable lymph nodes Skin: negative for any rash Psych: No depression, no anxiety PHYSICAL EXAMINATION Weight( lbs), BP ( mm Hg), HR ( /min), RR ( /min), SpO2 ( %) BP 102/70 (BP Location: Left arm, Patient Position: Sitting) Pulse 66 Ht 5' 6 (1.676 m) Wt 299 lb 6.4 oz (135.8 kg) LMP (LMP Unknown) SpO2 96% No BMI 48.32 kg/m?? Constitutional: vitals as above; awake and alert, no distress. Well groomed and nourished Obese ENT: clear nares, mucous membranes are moist Respiratory: clear Psychiatric: normal affect and mood IMPRESSIONS AND RECOMMENDATIONS Dyspnea, likely multifactorial Moderate asthma Dx in high school Morbid obesity, BMI 52 Severe sleep apnea, AHI of 87 Remote minimal smoking, quit in her 20s Plan: Continue trelegy 200 mcg daily Prn albuterol singulair daily Expect improvement in her breathing once the sleep apnea is treated. Will reassess after adequate treatment with CPAP therapy Encouraged weight loss with exercise and watching diet RTC in 6 months Gustavo Anthony MD Pulmonary and Critical Care Medicine 03/02/2025 documented in this encounter Plan of Treatment Upcoming Encounters Date Type Department Care Team (Late st Contact Info) Description 05/24/2025 9:00 AM EDT Appointment [facility] [address] [place] [address] [address] [place] [address] Talon Sprague DO [address] [place] [address] [address] [place], [place] [id number] 05/24/2025 10:00 AM EDT Office Visit [facility] Vascular Surg [facility] [address] [place] [address] Jessika Franco APRN [address] [facility] [address] [place] [address] 06/28/2025 10:45 AM EDT Office Visit SEP Sleep Medicine [facility] [address] [address] Mimi Padilla APRN 651 [facility] 19 [place] [address] 08/23/2025 1:40 PM EST Office Visit [facility]P Pulmonology [facility] [address] [facility] Building [address] [place] [address] Karine Horne NP [address] [place] [address] documented as of this encounter Visit Diagnoses Diagnosis Moderate persistent asthma without complication- Primary Unspecified asthma [place] (obstructive sleep apnea) Obstructive sleep apnea (adult) (pediatric) documented in this encounter Historical Medications * This list may reflect changes made after this encounter. bumetanide (BUMEX) 2 mg Oral Tablet Take 2 mg by mouth daily. 02/19/2025 03/18/2025 added in this encounter
--- OUTSIDE RECORDS SUMMARY | 2025-04-13 19:00 | XMS_ITS | Encounter Summary ---
Author Organization [place] [address] Care Team Providers Care Ore Charger Name Role Phone Unavailable Primary Care Provider Unavailabl e Reason for Referral * Sleep Center (Routine) - Closed Specialty Diagnoses / Procedures Referred By Contac t Referred To Contact Sleep Center Diagnoses Obstructive sleep apnea Former smoker Morbid obesity with BMI of 40.0-44.9, adult (HCC) May-Thurner syndrome Procedures CPAP TITRATION TX POLYSOM 6/>YRS SLEEP W/CPAP 4/> ADDL JOSEPH ATTND Tereso Mcgee MD [address] [place] [phone] Phone: tel: fax: [facility] Sleep [facility] [address] [place] [address] Phone: tel: fax: Referral ID Status Reason Start Date Expiration Date Visits Re quested Visits Authorized [id number] Closed 02/11/2025 02/11/2026 1 1 Reason for Visit * Reason Comments Sleep Study * Sleep Center (Routine) - Closed Specialty Diagnoses / Procedures Referred By Contac t Referred To Contact Sleep Center Diagnoses Obstructive sleep apnea Former smoker Morbid obesity with BMI of 40.0-44.9, adult (HCC) May-Thurner syndrome Procedures CPAP TITRATION TX POLYSOM 6/>YRS SLEEP W/CPAP 4/> ADDL JOSEPH ATTND Tereso Mcgee MD [address] [facility] Building [address] [place] [phone] Phone: tel: fax: [facility] Sleep Disorder Center [address] [place] [address] Phone: tel: fax: Referral ID Status Reason Start Date Expiration Date Visits Re quested Visits Authorized [id number] Closed 02/11/2025 02/11/2026 1 1 Encounter Details Date Type Department Care Team (Latest Contact Info) Description 04/13/2025 7:00 PM EDT - 04/13/2025 11:59 PM EDT Hospital Encounter [facility] Sleep [facility] [address] [place] [address] Obstructive sleep apnea; Former smoker; Morbid obesity with BMI of 40.0-44.9, adult (HCC); May-Thurner syndrome Discharge Disposition: Home or Self Care Social [...] 5 mg by mouth 2 times daily. ergocalciferol (DRISDOL) 1,250 mcg (50,000 unit) Oral Capsule TAKE ONE (1) CAPSULE EVERY WEEK BY MOUTH 2 estradiol (ESTRACE) 0.5 mg Oral Tablet Take 1 mg by mouth daily. 0 8 estradioL (ESTRACE) 1 mg Oral Tablet Take 1 mg by mouth daily. as directed 1 fluticasone propionate (FLONASE) 50 mcg/actuation Nasl Dittmer, Suspension SPRAY ONE (1) SPRAY EVERY DAY BY INTRANASAL ROUTE. 4 fluticasone propionate (FLOVENT HFA) 110 mcg/actuation Inhl HFA Aerosol Inhaler fluticasone-umecl idin-vilanter (TRELEGY ELLIPTA) 200-62.5-25 mcg Inhl Disk with DeviceIndications :Moderate persistent asthma without complication Inhale 1 Puff into the lungs daily. gabapentin (NEURONTIN) 100 mg Oral Capsule Take [...] MOUTH EVERY DAY 30 Tablet 3 5 metoprolol succinate (TOPROL-XL) 25 mg Oral [...] DAY BY ORAL ROUTE FOR 30 DAYS. clopidogreL (PLAVIX) 75 mg Oral Tablet TAKE ONE (1) TABLET BY MOUTH EVERY DAY 30 Tablet 3 5 04/22/20 25 documented as of this encounter Discharge Disposition Disposition Code Departure Means Destination Home or Self Care documented in this encounter Progress Notes * Yohana Salmeron - 04/13/2025 7:00 PM EDTAssociated Problem(s): Former smoker-quit 1986 Orders: CPAP TITRATION; Standing CPAP TITRATION * Yohana Salmeron - 04/13/2025 7:00 PM EDTAssociated Problem(s): Morbid obesity with BMI of 40.0-44.9, adult (HCC) Orders: CPAP TITRATION; Standing CPAP TITRATION * Yohana Salmeron - 04/13/2025 7:00 PM EDTAssociated Problem(s): May-Thurner syndrome Orders: CPAP TITRATION; Standing CPAP TITRATION documented in this encounter Plan of Treatment Upcoming Encounters Date Type Department Care Team (Late st Contact Info) Description 05/24/2025 9:00 AM EDT Appointment [facility] VASCULAR [address] [place] [address] Talon Sprague, DO [address] [place], [place] [id number] 05/24/2025 10:00 AM EDT Office Visit [facility] Vascular Surg Edg [address] [place] [address] Jessika Franco TELEPHONE LINES REPAIRER [address] [place], [place] [id number] 06/28/2025 10:45 AM EDT Office Visit [facility] Sleep Medicine [facility] [address] [facility] [address] [place] [address] Mimi Padilla, TELEPHONE LINES REPAIRER [address] [facility] 19 [place], [place] [id number] 08/23/2025 1:40 PM EST Office Visit [facility] Pulmonology [facility] [address] [address] Karine Horne, INSTALLATIONS INSPECTOR [address] [place], [place] [phone] Scheduled Orders Name Type Priority Associated Diagnoses Orde r Schedule TX POLYSOM 6/>YRS SLEEP W/CPAP 4/> ADDL JOSEPH ATTND TX Charge Routine Obstructive sleep apnea Ordered: 04/13/2025 documented as of this encounter Procedures Procedure Name Priority Date/Time Associated Diagnosis Comments CPAP TITRATION Routine 04/13/2025 10:16 AM EDT Obstructive sleep apnea Former smoker Morbid obesity with BMI of 40.0-44.9, adult (HCC) May-Thurner syndrome documented in this encounter Results * CPAP TITRATION (04/13/2025 10:16 AM EDT) [facility] Yoel CORNEJO OVERALL RESULT [facility] DATE OF STUDY 04/13/2025 [facility] Study Type Adult SE LAB PATIENT WEIGHT 299.0 [facility] APNEA INDEX 1.5 SE LAB Apnea Hypopnea Index 3.3 SE LAB RDI Index 3.3 [facility] Central Apnea Index 1.2 [facility] REM AHI 2.4 [facility] Min O2 Saturation 89 [facility] RDI REM 2.4 [facility] RDI nonREM 4.1 [facility] CPAP Device Name [facility] CPAP Pressure [facility] IPAP Pressure [facility] EPAP Pressure [facility] Auto Pressure Support [facility] Supplemental O2 [facility] Mask Type N30 [facility] Mask Size medium [facility] APAP Range [facility] Auto-IPAP Max [facility] Auto-IPAP Min [facility] Pressure Support [facility] PAP Compliance % [facility] Compliance Days [facility] Residual AHI [facility] PAP 90-95th Percentile [facility] 04/13/2025 10:1 6 AM EDT us Tereso Mcgee MD SLEEP CENTER ORDERABLES Final Re sult [facility] [address] [place] [id number] documented in this encounter Visit Diagnoses Diagnosis Obstructive sleep apnea Obstructive sleep apnea (adult) (pediatric) Former smoker Personal history of tobacco use, presenting hazards to health Morbid obesity with BMI of 40.0-44.9, adult (HCC) May-Thurner syndrome Compression of vein documented in this encounter
--- OUTSIDE RECORDS SUMMARY | 2025-04-23 11:21 | XMS_ITS | Encounter Summary ---
Author Organization [place] [address] Care Team Providers Care Hot Dip Plating Supervisor Name Role Phone Unavailable Primary Care Provider Unavailabl e Reason for Visit * Reason Onset Date Comments Referral 02/24/2025 Encounter Details Date Type Department Care Team (Late st Contact Info) Description 02/24/2025 Telephone SEP WEIGHT MGT [facility] [address] [place] [phone] Maddie Dillon MA Referral Social History [...] up on referral. LVM reminding pt of Impulsivt message sent with instructions to view the online seminar and complete the new patient packet. documented in this encounter Plan of Treatment Upcoming Encounters Date Type Department Care Team (Late st Contact Info) Description 05/24/2025 9:00 AM EDT Appointment [facility] MED OF[facility] VASCULAR [address] [place] [address] Talon Sprague, DO [address] [place], [place] [phone] 05/24/2025 10:00 AM EDT Office Visit [facility]P Vascular Surg Edg [address] [place] [address] Jesskia Franco LOGISTICS VICE PRESIDENT [address] [place], [place] [phone] 06/28/2025 10:45 AM EDT Office Visit [facility]P Sleep Medicine [facility] [address] [facility] 19 [place] [address] Mimi Padilla, LOGISTICS VICE PRESIDENT [address] [facility] 19 [place] [address] 08/23/2025 1:40 PM EST Office Visit [facility]P Pulmonology [facility] [address] [facility] 19 [place] [address] Karine Horne, SHERMAN [address] [place] [address] documented as of this encounter Visit Diagnoses Not on filedocumented in this encounter
--- OUTSIDE RECORDS SUMMARY | 2025-04-23 11:21 | XMS_ITS | Encounter Summary ---
Author Organization [facility] [place] [address] Care Team Providers Care Cadastral Surveyor Name Role Phone Unavailable Primary Care Provider Unavailabl e Encounter Details Date Type Department Care Team (Latest Contact Info) Description 02/27/2025 Travel Social History Tobacco Use Types Packs/Day [...] EDT Appointment [facility] VASCULAR [address] [place] [address] Talon Sprague DO [address] [place] [address] [address] [place] [address] 05/24/2025 10:00 AM EDT Office Visit [facility] Vascular Surg Edg [address] [place] [address] Jessika Franco APRN [address] [place] [address] 06/28/2025 10:45 AM EDT Office Visit [facility]P Sleep Medicine [address] [address] Mimi Padilla, YVAN [address] [place] [id number] 08/23/2025 1:40 PM EST Office Visit [facility]P Pulmonology [address] [address] Karine Horne, RN INTERNSHIP [address] [place] [address] documented as of this encounter Visit Diagnoses Not on filedocumented in this encounter
--- OUTSIDE RECORDS SUMMARY | 2025-04-23 11:21 | XMS_ITS | Clinical Summary ---
Author Organization Healthcare Address [address] [place] [address] Care Team Providers Care Top Waddy Name Role Phone Dinorah Shore TILE EDGER Primary Care Provider Family History Medical History Relation Name Comments [...] 2018 [facility]-Zoster Vaccines (1 of 2) 2018 [facility]-ALCGH-46 Vaccine ( season) 2024 02/21/2022, 09/26/2020, 09/06/2020 [facility]-Influenza Vaccine (#1) 2025 06/09/2012 [facility]-DTaP,Tdap,and Td Vaccine s (2 - Td or Tdap) 04/16/2027 04/16/2017 [facility]-Hepatitis A Vaccines Aged Out 11/19/ 019, 05/08/2018 No longer eligible based on [...] age to complete this topic Care Teams Top Waddy Relationship Specialty Start Date End Date Dinorah Shore, TILE EDGER [address] [place] [address] PCP - General 11/13/22
--- OUTSIDE RECORDS SUMMARY | 2025-04-23 11:21 | XMS_ITS | Encounter Summary ---
Author Organization [place] [place] [address] Care Team Providers Care Airplane Navigator Name Role Phone Unavailable Primary Care Provider Unavailabl e Reason for Visit * Reason Comments Medication Refill Encounter Details Date Type Department Care Team (Late Contact Info) Description 04/22/2025 Refill [facility] Vascular Surg Edg [address] [facility] [address] [place] [address] January, Jessika Chance SENIOR ASIC ENGINEER [address] [facility] [address] [place], [place] [phone] Medication Refill Social History Tobacco Use Types [...] BY MOUTH EVERY DAY 30 Tablet 3 04/22/2025 documented in this encounter Plan of Treatment Upcoming Encounters Date Type Department Care Team (Late Contact Info) Description 05/24/2025 9:00 AM EDT Appointment [facility] VASCULAR [address] [facility] [address] [place] [address] Talon Sprague, DO [address] [place], [place] [phone] 05/24/2025 10:00 AM EDT Office Visit [facility] Vascular Surg Edg [address] [place] [address] Jessika Franco SENIOR ASIC ENGINEER [address] [address] [place] [address] 06/28/2025 10:45 AM EDT Office Visit [facility]P Sleep Medicine [address] [address] Mimi Padilla, SENIOR ASIC ENGINEER [address] [place] [address] 08/23/2025 1:40 PM EST Office Visit [facility]P Pulmonology [address] [address] Karine Horne, OFFICE MACHINE PUNCH OPERATOR [address] [place] [address] documented as of this encounter Visit Diagnoses Not on filedocumented in this encounter Discontinued Medications Medication Sig Discontinue Reason Start Date End Da te clopidogreL (PLAVIX) 75 mg Oral Tablet TAKE ONE (1) TABLET BY MOUTH EVERY DAY 01/19/2025 04/22/2025 documented as of this encounter
--- OUTSIDE RECORDS SUMMARY | 2025-04-23 11:21 | XMS_ITS | Encounter Summary ---
Author Organization [place] [address] Care Team Providers Care Packing Shed Supervisor Name Role Phone Unavailable Primary Care Provider Unavailabl e Reason for Visit * Reason Onset Date Comments Patient Question 03/09/2025 Encounter Details Date Type Department Care Team (Late st Contact Info) Description 03/09/2025 Telephone [facility] Sleep Medicine [facility] [address] [address] Светлана Brennan MA Patient Question Social History Tobacco Use Types Packs/Day Years [...] Telephone Encounter - Dinorah Celeste MA - 03/09/2025 10:32 AM EDT See note below. Wanting to get in sooner for Titration study. * Telephone Encounter - Светлана Brennan MA - 03/09/2025 10:14 AM EDT Pt called said she was having shortness of breath and having trouble breathing she wanted to know if we could get her in sooner for the Titration. I told pt if she is having trouble breathing and catching her breath she needs to go to the ER.I told pt I would pass on message to see if anything can be moved up. But if she is having trouble breathing then she needs to go to ER documented in this encounter Plan of Treatment Upcoming Encounters Date Type Department Care Team (Late st Contact Info) Description 05/24/2025 9:00 AM EDT Appointment [facility] OFC VASCULAR [address] [place] [address] [address] [place] [address] Talon Sprague, DO [address] [address] [place], [place] [phone] 05/24/2025 10:00 AM EDT Office Visit [facility]P Vascular Surg Edg [address] [place] [address] Jessika Franco LEGAL SUMMER INTERN [address] [facility] [address] [place] [address] 06/28/2025 10:45 AM EDT Office Visit SEP Sleep Medicine [facility] [address] [address] Mimi Padilla LEGAL SUMMER INTERN [address] [address] 08/23/2025 1:40 PM EST Office Visit SEP Pulmonology [facility] [address] [address] Karine Horne, MARKET DEVELOPMENT ANALYST [address] [place] [address] documented as of this encounter Visit Diagnoses Not on filedocumented in this encounter
--- OUTSIDE RECORDS SUMMARY | 2025-04-23 11:21 | XMS_ITS | Encounter Summary ---
Author Organization [place] [address] Care Team Providers Care River Driver Name Role Phone Unavailable Primary Care Provider Unavailabl e Reason for Referral * Durable Medical Equipment (Routine) - Pending Review Specialty Diagnoses / Procedures Referred By Contac t Referred To Contact Diagnoses Obstructive sleep apnea Procedures AMB SEP CPAP DME Tereso Mcgee MD [address] [address] Phone: tel: fax: Referral ID Status Reason Start Date Expiration Date V isits Requested Visits Authorized [id number] Pending Review 04/14/2025 04/14/2026 1 1 Encounter Details Date Type Department Care Team (Late st Contact Info) Description 04/14/[address] [facility] Sleep [facility] Center [address] [place] [address] Tereso Mcgee MD [address] [address] Obstructive sleep apnea (Primary Dx) Social History Tobacco Use Types Packs/Day Years [...] EDT Appointment EDG MED OFC VASCULAR 20 [facility] [address] [place] [address] Talon Sprague, DO [address] [facility] [address] [place] [address] 05/24/2025 10:00 AM EDT Office Visit SEP Vascular Surg Edg 20 [facility] [address] [place] [address] Jessika Franco SCHOOL EXAMINER [address] [facility] [address] [place], [place] [id number] 06/28/2025 10:45 AM EDT Office Visit SEP Sleep Medicine [facility] [address] [place] [facility] 19 [place] [address] Mimi Padilla, SCHOOL EXAMINER [address] [id number] 08/23/2025 1:40 PM EST Office Visit SEP Pulmonology [facility] [address] [address] Karine Horne, [facility] [address] [place] [address] documented as of this encounter Visit Diagnoses Diagnosis Obstructive sleep apnea- Primary Obstructive sleep apnea (adult) (pediatric) documented in this encounter Orders Nursing Count Last Ordered Date First Orde red Date AMB SEP CPAP DME 1 04/14/2025 documented in this encounter
--- OUTSIDE RECORDS SUMMARY | 2025-04-23 11:21 | XMS_ITS | Encounter Summary ---
Author Organization [facility] [place] [address] Care Team Providers Care Orthodontist Vice President Name Role Phone Unavailable Primary Care Provider Unavailabl e Encounter Details Date Type Department Care Team (Late st Contact Info) Description 03/18/2025 Orders Only SEP Vascular Surg Edg 20 [facility] [address] [place] [address] Emma Meier, RN Social History Tobacco Use Types Packs/Day Years [...] AM EDT Appointment EDG MED OFC VASCULAR [address] [place] [address] [address] [place] [address] Talon Sprague, DO 20 [facility] [address] [place] [address] 05/24/2025 10:00 AM EDT Office Visit SEP Vascular Surg Edg 20 [facility] [address] [place] [address] Jessika Franco APRN [address] [facility] [address] RODRIGUEZ [place] [address] 06/28/2025 10:45 AM EDT Office Visit SEP Sleep Medicine [address] [address] Mimi Padilla PRINTED CIRCUIT BOARD LAYOUT DESIGNER [address] [place] [id number] 08/23/2025 1:40 PM EST Office Visit SEP Pulmonology [address] [address] Karine Horne, BRACELET AND BROOCH MAKER [address] [place] [address] documented as of this encounter Visit Diagnoses Not on filedocumented in this encounter
--- OUTSIDE RECORDS SUMMARY | 2025-04-23 11:21 | XMS_ITS | Clinical Summary ---
Author Organization [facility] Address [address] [place] [address] Care Team Providers Care Hole Puncher Strap Name Role Phone Nuzhat Kwon MD Primary Care Provider [phone] Source Comments This information has been disclosed [...] therelease of HIV test results or diagnoses. [id number] Allergies No known active allergies Medications [...] Plan of Treatment Not on file Insurance [facility] Address: [facility] [id number] [place] [address] Care Teams Hole Puncher Strap Relationship Specialty Start Date End Date Nuzhat Kwon MD [address] [address] PCP - General Internal Medicine 07/06/15
--- OUTSIDE RECORDS SUMMARY | 2025-04-23 11:21 | XMS_ITS | Encounter Summary ---
Author Organization [place] [address] Care Team Providers Care Coconut Candy Maker Name Role Phone Unavailable Primary Care Provider Unavailabl e Reason for Visit * Reason Comments Medication Refill Encounter Details Date Type Department Care Team (Late st Contact Info) Description 03/18/2025 Refill SEP Vascular Surg Edg 20 [facility] [address] [place] [address] Talon Sprague, DO 20 [facility] [address] [place], [place] [id number] Medication Refill Social History Tobacco Use Types [...] BY MOUTH EVERY DAY 30 Tablet 3 03/18/2025 documented in this encounter Plan of Treatment Upcoming Encounters Date Type Department Care Team (Late st Contact Info) Description 05/24/2025 9:00 AM EDT Appointment EDG MED OFC VASCULAR [address] [facility] [address] [place] [address] Talon Sprague, DO [address] [facility] [address] [place], [place] [id number] 05/24/2025 10:00 AM EDT Office Visit SEP Vascular Surg Edg [address] [facility] [address] [place] [address] Jessika Franco ENGINEER FISHING VESSEL [address] [facility] [address] [place], [place] [address] 06/28/2025 10:45 AM EDT Office Visit SEP Sleep Medicine [facility] [address] [place] [address] 19 [place] [address] Mimi Padilla APRN [address] [place] [address] 19 [place], [place] [id number] 08/23/2025 1:40 PM EST Office Visit SEP Pulmonology [address] 19 [place] [address] Karine Horne, LEVEL VIAL SEALER [address] [place] [address] documented as of this encounter Visit Diagnoses Not on filedocumented in this encounter Discontinued Medications Medication Sig Discontinue Reason Start Date End Da te fUROsemide (LASIX) 20 mg Oral Tablet Take 20 mg by mouth daily. Patient Reported not taking medication 11/17/2017 03/18/2025 torsemide (DEMADEX) 20 mg Oral Tablet Take 2 Tablets by mouth daily. Patient Reported not taking medication 03/18/2025 torsemide (DEMADEX) 100 mg Oral Tablet TAKE 0.5 TABLETS EVERY DAY BY ORAL ROUTE FOR 30 DAYS. Patient Reported not taking medication 12/17/2023 03/18/2025 bumetanide (BUMEX) 2 mg Oral Tablet Take 2 mg by mouth daily. Patient Reported not taking medication 02/19/2025 03/18/2025 losartan-hydrochloroth iazide (HYZAAR) 50-12.5 mg Oral Tablet TAKE ONE (1) TABLET BY MOUTH EVERY DAY 01/19/2025 03/18/2025 documented as of this encounter
--- OUTSIDE RECORDS SUMMARY | 2025-04-23 11:21 | XMS_ITS | Clinical Summary ---
Author Organization [facility] Address [address] [facility] [place] [address] [place] [address] Phone Care Team Providers Care Operations Processor Name Role Phone Unavailable Primary Care Provider Unavailabl e Allergies No known active allergies Medications estradiol (ESTRACE) 0.5 mg Oral Tablet Take 1 mg by mouth daily. 0 018 Active omeprazole (PRILOSEC) 40 mg Oral Capsule, Delayed Release(E.C.) Take 40 mg by mouth daily. 0 018 Active albuterol (PROVENTIL) 2.5 mg /3 mL (0.083 %) Inhl Solution for Nebulization as needed. 0 018 Active PROAIR HFA 90 mcg/actuation Inhl HFA Aerosol Inhaler 1 Puff as needed. 0 018 Active ranitidine (ZANTAC) 150 mg Oral Capsule Take 150 mg by mouth nightly. Active imipramine (TOFRANIL) 25 mg Oral Tablet Take by mouth nightly. Active losartan (COZAAR) 100 mg Oral Tablet Take 100 mg by mouth daily. 021 Active NIFEdipine (PROCARDIA XL) 30 mg Oral Tablet Extended Rel 24 hrIndications:R aynaud's disease without gangrene Take 1 Tab by mouth daily. 30 Tab 3 021 Active Additional Information Patient not taking.Reason: Therapy Completed, Informant: Self/Patient, Reported on 12/28/2024 pantoprazole (PROTONIX) 40 mg Oral Tablet, Delayed Release (E.C.) Take 40 mg by mouth daily. Active estradioL (ESTRACE) 1 mg Oral Tablet Take 1 mg by mouth daily. as directed Active gabapentin (NEURONTIN) 100 mg Oral Capsule Take 100 mg by mouth as needed for Pain. Active sertraline (ZOLOFT) 50 mg Oral Tablet TAKE ONE (1) TABLET EVERY DAY BY ORAL ROUTE. Active ergocalciferol (DRISDOL) 1,250 mcg (50,000 unit) Oral Capsule TAKE ONE (1) CAPSULE EVERY WEEK BY MOUTH Active potassium chloride (KLOR-CON) 10 mEq Oral Tablet Sustained Release Active metoprolol succinate (TOPROL-XL) 25 mg Oral Tablet Sustained Release 24 hr Take 25 mg by mouth daily. Active apixaban (ELIQUIS) 5 mg Oral Tablet Take 5 mg by mouth 2 times daily. Active PREMARIN Vagl Cream INSERT 0.5 APPLICATORSFUL BY VAGINAL ROUTE NIGHTLY FOR TWO (2) WEEKS THEN TWICE WEEKLY AFTER THAT Active oxybutynin (DITROPAN-XL) 10 mg Oral Tablet Extended Rel 24 hr TAKE ONE (1) TABLET EVERY DAY BY ORAL ROUTE. Active fluticasone propionate (FLOVENT HFA) 110 mcg/actuation Inhl HFA Aerosol Inhaler Acti ve albuterol-iprat ropium (DUO-NEB) 0.5 mg-3 mg(2.5 mg base)/3 mL Inhl Solution for Nebulization INHALE CONTENTS OF ONE (1) VIAL FOUR (4) TIMES DAILY NEEDED Active spironolactone (ALDACTONE) 25 mg Oral Tablet TAKE ONE (1) TABLET EVERY DAY BY ORAL ROUTE FOR 30 DAYS. Active isosorbide mononitrate (IMDUR) 30 mg Oral Tablet Sustained Release 24 hr Active fluticasone propionate (FLONASE) 50 mcg/actuation [place], Suspension SPRAY ONE (1) SPRAY EVERY DAY BY INTRANASAL ROUTE. Active fluticasone-ume clidin-vilanter (TRELEGY ELLIPTA) 200-62.5-25 mcg Inhl Disk with DeviceIndicatio ns:Moderate persistent asthma without complication Inhale 1 Puff into the lungs daily. Active montelukast (SINGULAIR) 10 mg Oral TabletIndicatio ns:Moderate persistent asthma without complication Take 1 Tablet by mouth nightly. 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 Family history of ischemic heart disease before age 50 03/02/2024 Ovarian cyst, right 03/02/2024 Status post cardiac catheterization 03/02/2024 SAW (stress urinary incontinence, female) 2023 Iliac artery thrombosis, 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 Former smoker-quit 198504/22/2023 Assessment & Plan (04/14/2025 5:01 AM EDT): Orders: CPAP TITRATION; Standing CPAP TITRATION Acute lateral meniscus tear of left knee 023 Overview (04/05/2023): Added automatically from request for surgery [id number] Raynaud's disease 04/14/2021 May-Thurner syndrome 02/15/2021 Assessment & Plan (04/14/2025 5:01 AM EDT): Orders: CPAP TITRATION; Standing CPAP TITRATION Morbid obesity with BMI of 40.0-44.9, adult 05/2019 Assessment & Plan (04/14/2025 5:01 AM EDT): Orders: CPAP TITRATION; Standing CPAP TITRATION Symptomatic varicose veins of both lower extremi ties 07/15/2018 Overview (07/15/2018): Added automatically from request for surgery [id number] 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 01/13/2018 Venous insufficiency of both lower extremities 0 01/13/2018 Pain in both lower extremities 01/13/2018 Gastroesophageal reflux disease 07/05/2016 Neuropathy 07/05/2016 Encounters Date Type Department Care Team Description 04/22/2025 Refill SEP Vascular Surg Edg 20 [facility] [address] [place] [address] Jessika Franco APRN Medication Refill 04/14/2025 Orders Only [facility] Sleep Disorder [address] [place] [phone] Tereso Mcgee MD Obstructive sleep apnea (Primary Dx) 04/13/2025 7:00 PM EDT - 04/13/2025 11:59 PM EDT Hospital Encounter [facility] Sleep Disorder [address] [place] [phone] Obstructive sleep apnea; Former smoker; Morbid obesity with BMI of 40.0-44.9, adult (HCC); May-Thurner syndrome Discharge Disposition: Home or Self Care 03/18/2025 Orders Only SEP Vascular Surg Edg 20 [facility] [address] [place] [address] Emma Meier RN 03/18/2025 Refill SEP Vascular Surg Edg 20 [facility] [address] [place] [address] Talon Sprague DO Medication Refill 03/09/2025 Telephone SEP Sleep Medicine [facility] 19 [place] [address] Светлана Brennan MA Patient Question 03/02/2025 2:30 PM EDT Office Visit SEP Pulmonology [facility] 651 [facility] 19 [place] [address] Gustavo Anthony MD Moderate persistent asthma without complication (Primary Dx); [place] (obstructive sleep apnea) 02/27/2025 Travel 02/24/2025 Telephone SEP WEIGHT [facility] [address] [place] [address] Maddie Dillon MA Referral 02/18/2025 Telephone SEP Sleep Medicine [facility] 651 [facility] 19 [place] [address] Tereso Mcgee MD Sleep Apnea 02/11/2025 10:45 AM EDT Office Visit SEP Sleep Medicine [facility] 651 [facility] 19 [place] [address] Tereso Mcgee MD Obstructive sleep apnea (Primary Dx); Former smoker; Morbid obesity with BMI of 40.0-44.9, adult (HCC); May-Thurner syndrome 02/08/2025 Travel 01/25/2025 7:00 PM EDT - 01/25/2025 11:59 PM EDT Hospital Encounter [facility] [address] [place] [address] Morbid obesity (HCC); Obstructive sleep apnea; Gastroesophageal reflux disease with esophagitis, unspecified whether hemorrhage Discharge Disposition: Home or Self Care from Last 3 Months Surgical History Surgery [...] LATERAL MENISCECTOMY; Surgeon: Jaron Story MD; Location: [facility]; Service: Orthopedics IR ULTRASOUND GUIDED VASCULA R ACCESS 05/02/2023 IR ULTRASOUND GUIDED VASCULAR ACCESS 05/02/2023 Sprague, Edward Jorge, DO EDG IR IR ULTRASOUND GUIDED VASCULA R ACCESS 03/19/2024 IR ULTRASOUND GUIDED VASCULAR ACCESS 03/19/2024 Talon Sprague, EDG IR SINUS SURGERY UVULOPALATOPHARYGOPLASTY Medical History [...] Pressure Father Dilshad Nath Diabetes Maternal Grandfather Ciro Solorzano Diabetes Maternal Grandmother Elena solorzano Br east Arthritis Mother Luzmaria Nath Asthma Mother Luzmaria Nath Cancer Mother Luzmaria Nath Breast and lung s Diabetes Mother Luzmaria Nath Heart Disease Mother Luzmaria Nath High Blood Pressure Mother Luzmaria Nath Lung Cancer Mother Luzmaria Nath Stroke Mother Luzmaria Nath Cancer Paternal Grandmother Elena Burrows Solorzano Br east High Blood Pressure Sister 1 Chloe Zia Anesth Problems Neg Hx Relation Name Status Comments Brother 1 Boris Nath Alive Brother 2 Elia Nath Alive Brother 3 Father Dilshad Nath Maternal Grandfather Ciro Solorzano Maternal Grandmother Elena solorzano Mother Luzmaria Nath Paternal Grandmother Elena Solorzano Sister 1 Chloe Zia Alive Sister 2 Alive Social History Tobacco [...] Pulse 66 03/02/2025 2:33 PM EDT Temperature 36.6 C (97.9 F) 04/20/2024 11:32 AM EDT Respiratory Rate 20 03/19/2024 3:40 PM EDT Oxygen Saturation 96% 03/02/2025 2:33 PM EDT Inhaled Oxygen Concentration - - Weight 135.8 kg (299 lb 6.4 oz) 03/02/2025 2:33 PM EDT Height 167.6 cm (5' 6 ) 03/02/2025 2:33 PM EDT Body Mass Index 48.32 03/02/2025 2:33 PM EDT Plan of Treatment Upcoming Encounters Date Type Department Care Team (Late st Contact Info) Description 05/24/2025 9:00 AM EDT Appointment [facility]G MED OFC VASCULAR [address] [place] [address] Drive [address] [place] [address] Talon Sprague, DO [address] [place] [address] [address] [place] [address] 05/24/2025 10:00 AM EDT Office Visit SEP Vascular Surg Edg [address] [place] [address] Drive [address] [place] [address] Jessika Franco AERONAUTICAL ENGINEER [address] [facility] [address] [place] [address] 06/28/2025 10:45 AM EDT Office Visit SEP Sleep Medicine [facility] [address] [address] Mimi Padilla, AERONAUTICAL ENGINEER [address] [address] 08/23/2025 1:40 PM EST Office Visit SEP Pulmonology [facility] [address] [address] Karine Horne, AUTO EMISSIONS TECHNICIAN [address] [place] [address] Health Maintenance Due Date Last Done Comments [...] Breast Cancer Screening 03/20/2025 03/20/2023 Influenza Vaccine (#1) 2025 8, 07/10/2017, 06/09/2016, Additional history exists DTaP/TDaP/Td (2 - Td or Tdap) 04/16/2027 04/16/2017 Cologuard 01/20/2028 01/19/2025, 11/07, 10/30/2019 Colon Cancer Screening 01/20/2028 Meningococcal B Vaccine Aged Out No l onger eligible based on patient's age to complete this topic Medical Devices Implanted Type Area Director Of Home Economics Device Identifier Shelf Expiration Date Model / Serial / Lot Stent Abre Venous 20 X 80-02/15/2021 Implanted:Qty: 1 on 02/15/2021 by Talon Sprague DO EV3 [id number] / / [id number] Stent Abre Venous 18 X 80-05/02/2023 Implanted:Qty: 1 on 05/02/2023 by Talon Sprague DO EV3 [id number] / / [id number] Procedures Procedure Name Priority Date/Time Associated Diagnosis Comments CPAP TITRATION Routine 04/13/2025 10:16 AM EDT Obstructive sleep apnea Former smoker Morbid obesity with BMI of 40.0-44.9, adult (HCC) May-Thurner syndrome POLYSOMNOGRAPHY 4 OR MORE PARAMETERS Routine 01/25/2025 9:52 AM EDT Morbid obesity (HCC) Obstructive sleep apnea Gastroesophageal reflux disease with esophagitis, unspecified whether hemorrhage MM MAMMO DIGITAL NICHOLAS SCREEN BILAT Routine 03/20/2023 10:39 AM EDT Encounter for screening mammogram for malignant neoplasm of breast from Last 3 Months or Most Recently Relevant to Health Maintenance Results * CPAP TITRATION (04/13/2025 10:16 AM EDT) [facility] SLEEP OVERALL RESULT [facility] DATE OF STUDY 04/13/2025 [facility] Study Type Adult [facility] PATIENT WEIGHT 299.0 SE LAB APNEA INDEX 1.5 SE [facility] Apnea Hypopnea Index 3.3 SE LAB RDI Index 3.3 SE LAB Central Apnea Index 1.2 SE LAB REM AHI 2.4 SE LAB Min O2 Saturation 89 SE LAB RDI REM 2.4 SE LAB RDI nonREM 4.1 [facility] CPAP Device Name [facility] CPAP Pressure [facility] IPAP Pressure [facility] EPAP Pressure [facility] Auto Pressure Support [facility] Supplemental O2 [facility] Mask Type N30 [facility] Mask Size medium [facility] APAP Range [facility] Auto-IPAP Max [facility] Auto-IPAP Min [facility] Pressure Support [facility] PAP Compliance % [facility] Compliance Days [facility] Residual AHI [facility] PAP 90-95th Percentile [facility] 04/13/2025 10:1 6 AM EDT Tereso Mcgee MD SLEEP CENTER ORDERABLES Final Re sult [facility] [address] [place] [id number] * POLYSOMNOGRAPHY 4 OR MORE PARAMETERS (01/25/2025 9:52 AM EDT) [facility] SLEEP OVERALL RESULT SE LAB DATE OF STUDY 01/25/2025 SE [facility] Study Type Adult [facility] PATIENT WEIGHT 301.0 SE LAB APNEA INDEX 4.4 [facility] Apnea Hypopnea Index 87.9 SE LAB RDI Index 87.9 SE [facility] Central Apnea Index 1.4 SE LAB REM AHI 91.0 SE [facility] Min O2 Saturation 76 [facility] RDI REM 91.0 SE [facility] RDI nonREM 85.1 [facility] CPAP Device Name [facility] CPAP Pressure [facility] IPAP Pressure [facility] EPAP Pressure [facility] Auto Pressure Support [facility] Supplemental O2 [facility] Mask Type [facility] Mask Size [facility] APAP Range [facility] Auto-IPAP Max [facility] Auto-IPAP Min [facility] Pressure Support [facility] PAP Compliance % [facility] Compliance Days [facility] Residual AHI [facility] PAP 90-95th Percentile [facility] 01/25/2025 9:52 AM EDT us Tereso Mcgee MD SLEEP CENTER ORDERABLES Final Re sult [facility] [address] [place] [address] * MM MAMMO DIGITAL NICHOLAS SCREEN BILAT (03/20/2023 10:39 AM EDT) Anatomical Region Laterality Modality Breast Bilateral Mammography 03/26/2023 1:45 PM EDT Impressions 03/26/2023 1:45 PM EDT Negative ([id number]) ~ RECOMMENDATION: Routine screening mammogram in 1 [...] the next mammogram, in accordance with the [employer] and the Society of Breast Imaging recommendations. Narrative 03/26/2023 1:45 PM EDT Procedure:MM MAMMO DIGITAL NICHOLAS SCREEN BILAT ~ Reason for exam: screening, asymptomatic. Z12.31-Encounter for screening mammogram for malignant neoplasm of [id number] ~ MM MAMMO DIGITAL NICHOLAS SCREEN BILAT [...] for screening mammogram for malignant neoplasm of [id number] ~ MM MAMMO DIGITAL NICHOLAS SCREEN BILAT Bilateral CC and MLO view(s) were taken. There are scattered fibroglandular densities. Prior study comparison: Compared with prior studies the most recentbeing outside study dated October, No mammographic evidence of malignancy. ~ IMPRESSION: Negative ([id number]) ~ RECOMMENDATION: Routine screening mammogram in 1 [...] the next mammogram, in accordance with the [place] and the Society of Breast Imaging recommendations. Lorna Bustamante DO [facility] ORDERA BLES Final Result from Last 3 Months or Most Recently Relevant to Health Maintenance Insurance [employer] [place] [employer] WORK[employer] COMP CLAIMS [id number] GENERIC WORKERS' COMP [facility]
--- NOTE | 2025-04-23 11:30 | FL_ITS ---
FINAL REPORT CLINICAL HISTORY: dysphagia ft: 1:59 dap: 1687.67 FINDINGS: ESOPHAGRAM Fluoroscopy Time: 1 minute 59 seconds Dose Area Product (DAP): 1687.67 Gy/m2. Number of Images: 12 images. HISTORY: Dysphagia. PROCEDURE: The patient ingested barium. Effervescent crystals were also administered. Fluoroscopic spot films were obtained. FINDINGS: There is marked esophageal dysmotility. No barium tablet was available for the patient to swallow. However, the esophagus appears normal in caliber without stricture identified. There is a small sliding-type hiatal hernia. No gastroesophageal reflux was demonstrated during the exam. IMPRESSION: Marked esophageal dysmotility. Small sliding-type hiatal hernia. Reviewed, Interpreted and Dictated by Reena Hernandez MD Transcribed by YASMINE Garcia Authenticated and [facility]
[2025-04-23] MEDS: BARIUM SULFATE (E-Z-HD 340GM);135ML BOTTLE 135 ML PO (11:40)
[2025-04-23] MEDS: E-Z-GASII EFFERVESCENT GRANULES;1PK 1 EACH PO (11:40)
[2025-04-23] MEDS: BARIUM SULFATE(LIQUID E-Z-PAQUE);355ML BOTTLE 355 ML PO (11:40)
== END 2025-04-23 23:59 | disposition home or self-care (01) ==
LOC: RAD 11:19
PROVIDERS: PCP Nurse Practitioner Family; Visit Provider Surgery
DX: K44.9 Diaphragmatic hernia without obstruction or gangrene (principal); K22.89 Other specified disease of esophagus; K21.9 Gastro-esophageal reflux disease without esophagitis
CPT/HCPCS: 74220